=== PATIENT | male | born 1940 | race Caucasian/White ===

== ENCOUNTER 2021-01-06 14:03 | Inpatient (IN) | payer MEDICARE, SELFPAY ==
--- NOTE | ~2021-01-06 | CT_ITS ---
EXAMINATION: CT HEAD WITHOUT CONTRAST CLINICAL INFORMATION: Altered mental status. Psychosis. COMPARISON: None TECHNIQUE: Contiguous axial imaging was performed from the skull base to vertex without intravenous administration of contrast. This CT examination was performed using dose optimization techniques as appropriate, variously including the following: *Automated exposure control *Adjustment of mA and/or kV according to patient size (this includes techniques or standardized protocols for targeted exams where dose is matched to indication/reason for exam; i.e. extremities or head) *Use of iterative reconstruction technique DLP: 737 mGy-cm FINDINGS: There is no evidence of an extra-axial collection. There is no evidence of intra-axial or extra-axial hemorrhage. The ventricles and extra-axial CSF spaces are prominent suggestive of mild generalized atrophy. There is nonspecific periventricular white matter disease. No mass, mass effect or infarct is seen. Review of bone windows is normal. There is a small polyp or cyst in the left axillary sinus. Paranasal sinuses, mastoid air cells and middle ears are otherwise clear. CT/CT head/brain wo con IMPRESSION: No acute findings. Mild nonspecific periventricular white matter disease and generalized atrophy.
--- NOTE | ~2021-01-06 | CT_ITS ---
EXAMINATION: CT HEAD WITHOUT CONTRAST CLINICAL INFORMATION: Fall COMPARISON: None TECHNIQUE: Contiguous axial imaging was performed from the skull base to vertex without intravenous administration of contrast. This CT examination was performed using dose optimization techniques as appropriate, variously including the following: *Automated exposure control *Adjustment of mA and/or kV according to patient size (this includes techniques or standardized protocols for targeted exams where dose is matched to indication/reason for exam; i.e. extremities or head) *Use of iterative reconstruction technique DLP: 659 mGy-cm FINDINGS: There is no evidence of acute intracranial hemorrhage or territorial infarction. No abnormal mass effect or midline shift is seen. Ross to white matter differentiation is well preserved. No extra-axial fluid collections are identified. The ventricles are normal in size. There is mild periventricular white matter hypoattenuation consistent with chronic small vessel ischemic disease. Mild volume loss is noted. The osseous structures and soft tissues are normal. The mastoid air cells and visualized portions of the paranasal sinuses are well aerated. CT/CT head/brain wo con IMPRESSION: No acute intracranial pathology.
--- NOTE | ~2021-01-06 | XR_ITS ---
EXAMINATION: XR LUMBOSACRAL SPINE CLINICAL INFORMATION: Recent fall. COMPARISON: None TECHNIQUE: Three views of the lumbosacral spine. FINDINGS: Mild to moderate thoracolumbar levoscoliosis is seen with apex at L2. Moderate multilevel degenerative disc disease is seen. There is grade 1 anterolisthesis of L4 over L5. Mild to moderate multilevel bilateral facet arthropathy is seen. There is no acute fracture. The soft tissues are unremarkable. XR/XR lumbar spine 2-3V IMPRESSION: Mild to moderate thoracolumbar levoscoliosis and multilevel degenerative changes including L4-5 grade 1 anterolisthesis without overt acute abnormality.
[2021-01-06 18:00] VITALS: RESP 16
[2021-01-06] MEDS: OLANZapine 2.5 MG TABLET PO (20:21)
[2021-01-06] MEDS: LORazepam 0.5 MG TABLET PO (20:21)
[2021-01-06] MEDS: traZODone HCL 50 MG TABLET PO (20:21)
[2021-01-07 06:00] VITALS: BP 135/62; PULSE 83; TEMP 36.8; O2SAT 99
[2021-01-07 06:28] LABS: MANUAL DIFF FLAG NO
[2021-01-07 06:36] LABS: Basophils Absolute Auto 0.1 X10*3/uL (0.0-0.2); Basophils Percent Auto 0.8 % (0-2); Eosinophils Absolute Auto 0.1 X10*3/uL (0.0-0.4); Eosinophils Percent Auto 1.9 % (0-4); Hemoglobin 11.3 g/dl (14.0-18.0); Imm Gran Abs Auto 0.02 X10*3/uL (0.00-0.03); Imm Gran Pct Auto 0.3 % (0.0-0.4); Lymphocytes Percent Auto 27.1 % (20-40); Mean Corpuscular HGB Conc 32.3 g/dl (31.0-36.0); Mean Corpuscular Hemoglobin 29.4 pg (27.0-33.0); Mean Corpuscular Volume 91.1 fL (80-98); Mean Platelet Volume 9.6 fL (9.4-12.4); Monocytes Absolute Auto 1.1 X10*3/uL (0.1-1.2); Monocytes Percent Auto 14.9 % (2-11); Neutrophils Absolute Auto 4.1 X10*3/uL (2.0-8.3); Platelet Count 231 X10*3/uL (160-400); Red Blood Count 3.84 X10*6/uL (4.60-5.80); Red Cell Distribution Width 14.6 % (11.0-16.0); White Blood Count 7.5 X10*3/uL (4.8-10.8)
[2021-01-07 07:21] LABS: Anion Gap 11 (12-20); Blood Urea Nitrogen 22 mg/dL (9-16); Calcium 8.3 mg/dL (8.4-10.2); Carbon Dioxide 30 mmol/L (22-29); Chloride 104 mmol/L (96-108); Cholesterol 194 mg/dL; Estimated Glomerular Filt Rate > 60; Glucose Random 99 mg/dL (60-115); HDL Cholesterol 40 mg/dL; LDL Cholesterol Calculated 140 mg/dl; Potassium 4.1 mmol/L (3.3-5.1); Sodium 141 mmol/L (135-145); Triglycerides 70 mg/dL
[2021-01-07 07:34] LABS: Thyroid Stimulating Hormone 1.18 uIU/mL (0.32-4.0)
[2021-01-07 09:35] LABS: Folate 14.2 ng/mL (> or = 4.0); Vitamin B12 278 pg/mL (200-900)
[2021-01-07 10:01] LABS: Estimated Average Glucose 114 mg/dL; Hemoglobin A1c % 5.6 %
--- NOTE | 2021-01-07 11:18 | P.CNHOSGPS_ITS ---
History of Present Illness Data of Consult Service Date: 01/07/21 Primary Care Provider: Unknown Physician HPI 80 year old male with AFIB, SSS s/p pacemerker, morbid obesity, history of type 2 diabetes and seems to have controlled following weight. Patient is rather demented isn't able to give much history, I obtained history from speaking to the over the phone. She tells me the patient has afib, on coumadin. That the patient was brought to [facility] because of agitation and agression.. Patient had taken a pair of knives and say he was going outside and if followed him, I will kill you --this is uncharactersitic of him. He reportedly also has been having visual hallucination.Had CT at [facility] with no acute finding, routine labs unremarkable and send to Psych units here Review of Systems Review of Systems: Yes Unobtainable due to mental status [facility] Medical History (Updated 01/07/21 @ 11:34 by Sohan Patel MD) Afib Dementia Morbid obesity SSS (sick sinus syndrome) Pertinent family history: Not available for me Surgical History (Updated 01/07/21 @ 11:30 by Sohan Patel MD) S/P cardiac pacemaker procedure Social History Household Members: Spouse Housing: House Do you presently have visiting nurse or other home services: No Unable to assess alcohol history related to: Unable to respond and Refusing to respond Patient Tobacco Use Status: Never used Tobacco Use of substances other than those prescribed or required for medical reasons: Unable to respond Currently Displaying Signs/Symptoms of Drug Intoxication Withdrawal: No Advance Directives: No Advance Directives Information Provided: No Do you have thoughts of harming others: None Do you have a plan to hurt others: No Plan Recently lost weight without trying: No Nutrition Risks: No Nutritional Risk Poor oral hygiene: No (unknown at this time, pt refused to cooperate) Meds Allergies Allergy/AdvReac Type Severity Reaction Status Date / Time No Known Allergies Allergy Verified 01/06/21 14:48 Active Medications: Current Medications Generic Name Dose Route Start Last Admin Trade Name Freq PRN Reason Stop Dose Admin Acetaminophen 650 mg 01/06/21 14:48 Acetaminophen 325 Mg Tablet PO Q6H PRN Headache/Pain Mild Scale (1-3) Al Hydroxide/Mg Hydroxide 30 ml 01/06/21 14:48 Magnesium Hydrox/Alum Hydrox 30 Ml Oral.Susp PO Q6H PRN Heartburn/Nausea Hydroxyzine HCl 25 mg 01/06/21 14:48 Hydroxyzine Hcl 25 Mg Tablet PO BEDTIME PRN Anxiety Lorazepam 0.5 mg 01/06/21 15:27 01/06/21 20:21 Lorazepam 0.5 Mg Tablet PO 0.5 mg Q6H PRN Administration Agitation Magnesium Hydroxide 30 ml 01/06/21 14:48 Milk Of Magnesia 30 Ml Oral.Susp PO DAILY PRN Constipation Olanzapine 2.5 mg 01/06/21 15:25 01/06/21 20:21 Olanzapine 2.5 Mg Tablet PO 2.5 mg Q6H PRN Administration Agitation Trazodone HCl 50 mg 01/06/21 14:48 01/06/21 20:21 Trazodone Hcl 50 Mg Tablet PO 50 mg BEDTIME PRN Administration Insomnia Results Labs CBC and Chem 7: 01/07/21 06:20 01/07/21 06:20 Labs: Laboratory Results - last 24 hr 01/07/21 01/07/21 01/07/21 06:20 06:20 06:20 MCV 91.1 MCH 29.4 MCHC 32.3 RDW 14.6 Plt Count 231 MPV 9.6 Immature Gran % (Auto) 0.3 Neut % (Auto) 55.0 Lymph % (Auto) 27.1 [place] % (Auto) 14.9 H Eos % (Auto) 1.9 Baso % (Auto) 0.8 Lymph # (Auto) 2.0 [place] # (Auto) 1.1 Eos # (Auto) 0.1 Baso # (Auto) 0.1 Abs Immat Gran (auto) 0.02 Absolute Neuts (auto) 4.1 Absolute Nucleated RBC 0.000 Nucleated RBC % (auto) 0.0 Anion Gap 11 L Estim Creat Clear Calc TNP Estimated GFR > 60 Random Glucose 99 Estimat Average Glucose 114 Hemoglobin A1c % 5.6 Calcium 8.3 L Triglycerides 70 Cholesterol 194 LDL Cholesterol, Calc 140 HDL Cholesterol 40 Vitamin B12 Folate TSH 1.18 01/07/21 06:20 MCV MCH MCHC RDW Plt Count MPV Immature Gran % (Auto) Neut % (Auto) Lymph % (Auto) [place] % (Auto) Eos % (Auto) Baso % (Auto) Lymph # (Auto) [place] # (Auto) Eos # (Auto) Baso # (Auto) Abs Immat Gran (auto) Absolute Neuts (auto) Absolute Nucleated RBC Nucleated RBC % (auto) Anion Gap Estim Creat Clear Calc Estimated GFR Random Glucose Estimat Average Glucose Hemoglobin A1c % Calcium Triglycerides Cholesterol LDL Cholesterol, Calc HDL Cholesterol Vitamin B12 278 Folate 14.2 TSH Assessment and Plan (1) Afib: Status: Acute (2) Dementia: Status: Acute 80/male morbidly [place] with moderate to advance dementia, AFIB presently admitted to Psych with dementia with behavioral issues and Psychotic feature. Medical work including metabolic panel unremarkable, [facility] Plan/ Continue ongoing Psychiatric care. As for h/o AFIB the tells me he takes coumadin and is not presently on, I would suggest that staff obtain home meds record so these can be reviewed and prescribed, I would also check daily INR. Discuss with Dr. Tamez. Physical Exam Vital Signs: Last Vital Signs Temp 98.3 F 01/07/21 06:00 Pulse 83 01/07/21 06:00 Resp 16 01/06/21 18:00 BP 135/62 01/07/21 06:00 Pulse Ox 99 01/07/21 06:00 Constitutional Awake and Alert, No apparent distress, tells me he is [facility], the year is 1940, Pleasantly confused Neck Supple, No lymphadenopathy Cardiovascular RRR, No M/R/G, S1 S2, No S3 S4, No pedal edema Respiratory Lungs clear, No respiratory distress Gastrointestinal Non tender, Non-distended Skin No rash Neurological Oritented to self only Psychological Appropriate affect, presently confused CN2 to 12 intact Neuro Cranial nerves: Yes CN's II-XII intact bilaterally
[2021-01-07 12:20] LABS: Prothrombin Time 22.9 SEC (9.9-13.0)
--- NOTE | 2021-01-07 12:21 | HO.PSYADMNOT ---
HPI Chief Complaint: Unspecified Depressive Disorder Sources of Information: patient interviewed, chart reviewed and crisis/core team assessment reviewed HPI Narrative: The patient is a 80-year-old male, , father of 4 adult children, retired, with good social support, living with his , referred from [facility]. As per emergency room reports, the patient was brought by the family sees he was recently diagnosed with dementia and she has been more agitated and delusional. About 6 weeks ago, the family has noticed a change in his behavior, with increase of irritability and irrational thoughts. The family reported that the patient had visual hallucinations, ?people killing each other, my friends being attacked . She has gone out to the street with a knife. Also, the crisis report, the patient had auditory hallucinations. Under emergency room of [facility], he was agitated and needed to be medicated with olanzapine and lorazepam. On intake, the patient was pleasant but confused. He has had a long latency of response. As per nurse's report, the patient was agitated at night and needed to be medicated with olanzapine and lorazepam several times we had minimal improvement. The patient was a very poor historian, he was unable to provide more details. [facility], she had a medical workup out with CBC with differential, CT scan without any abnormalities. Blood work today, show a normal folate level, TSH, vitamin B12 level and normal lipid profile. Past Psychiatric History: Denies Medical Evaluation Reviewed: Hospitalist Lanie Pending [facility] Medical History Afib Dementia Morbid obesity SSS (sick sinus syndrome) Surgical History S/P cardiac pacemaker procedure Family History: Denies Social History: The patient is a poor historian but he is and he has good social support Substance History: Denies Trauma History: Denies Diagnostics Vital Signs (24Hr): Vital Signs - 24 hr 01/06/21 18:00 01/07/21 06:00 Temperature 98.3 F Pulse Rate 83 Respiratory Rate 16 Blood Pressure 135/62 Pulse Oximetry 99 Labs Results: 01/07/21 06:20 01/07/21 06:20 Labs: Laboratory Results - last 48 hr 01/07/21 01/07/21 01/07/21 06:20 06:20 06:20 WBC 7.5 RBC 3.84 L Hgb 11.3 L Hct 35.0 L MCV 91.1 MCH 29.4 MCHC 32.3 RDW 14.6 Plt Count 231 MPV 9.6 Immature Gran % (Auto) 0.3 Neut % (Auto) 55.0 Lymph % (Auto) 27.1 [place] % (Auto) 14.9 H Eos % (Auto) 1.9 Baso % (Auto) 0.8 Lymph # (Auto) 2.0 [place] # (Auto) 1.1 Eos # (Auto) 0.1 Baso # (Auto) 0.1 Abs Immat Gran (auto) 0.02 Absolute Neuts (auto) 4.1 Absolute Nucleated RBC 0.000 Nucleated RBC % (auto) 0.0 Sodium 141 Potassium 4.1 Chloride 104 Carbon Dioxide 30 H Anion Gap 11 L BUN 22 H Creatinine 1.00 Estim Creat Clear Calc TNP Estimated GFR > 60 Random Glucose 99 Estimat Average Glucose 114 Hemoglobin A1c % 5.6 Calcium 8.3 L Triglycerides 70 Cholesterol 194 LDL Cholesterol, Calc 140 HDL Cholesterol 40 Vitamin B12 Folate TSH 1.18 01/07/21 06:20 WBC RBC Hgb Hct MCV MCH MCHC RDW Plt Count MPV Immature Gran % (Auto) Neut % (Auto) Lymph % (Auto) [place] % (Auto) Eos % (Auto) Baso % (Auto) Lymph # (Auto) [place] # (Auto) Eos # (Auto) Baso # (Auto) Abs Immat Gran (auto) Absolute Neuts (auto) Absolute Nucleated RBC Nucleated RBC % (auto) Sodium Potassium Chloride Carbon Dioxide Anion Gap BUN Creatinine Estim Creat Clear Calc Estimated GFR Random Glucose Estimat Average Glucose Hemoglobin A1c % Calcium Triglycerides Cholesterol LDL Cholesterol, Calc HDL Cholesterol Vitamin B12 278 Folate 14.2 TSH Meds/Allergies Meds Home Medications Acetaminophen (Acetaminophen 325 Mg Tablet) 650 mg PO Q6H PRN PRN Reason: Headache/Pain Mild Scale (1-3) Al Hydroxide/Mg Hydroxide (Magnesium Hydrox/Alum Hydrox 30 Ml Oral.Susp) 30 ml PO Q6H PRN PRN Reason: Heartburn/Nausea Hydroxyzine HCl (Hydroxyzine Hcl 25 Mg Tablet) 25 mg PO BEDTIME PRN PRN Reason: Anxiety Lorazepam (Lorazepam 0.5 Mg Tablet) 0.5 mg PO Q6H PRN PRN Reason: Agitation Last Admin: 01/06/21 20:21 Dose: 0.5 mg Documented by: Magnesium Hydroxide (Milk Of Magnesia 30 Ml Oral.Susp) 30 ml PO DAILY PRN PRN Reason: Constipation Olanzapine (Olanzapine 2.5 Mg Tablet) 2.5 mg PO Q6H PRN PRN Reason: Agitation Last Admin: 01/06/21 20:21 Dose: 2.5 mg Documented by: Trazodone HCl (Trazodone Hcl 50 Mg Tablet) 50 mg PO BEDTIME PRN PRN Reason: Insomnia Last Admin: 01/06/21 20:21 Dose: 50 mg Documented by: Allergies Allergies Allergy/AdvReac Type Severity Reaction Status Date / Time No Known Allergies Allergy Verified 01/06/21 14:48 Mental Status Exam Mental Status Exam Patient Appearance: Well Grooomed (On hospital gowns) Patient Orientation: Person Level of Consciousness: Awake and Disoriented Patient Behavior: Appropriate and Cooperative Mood Description: Depressed Affect Description: Constricted Patient Cognition Impaired: Yes Ability to Follow Directions: Fair Speech Pattern: Clear, Monotone and Soft-Spoken Memory Description: Immediate Impaired Hallucinations: Visual Delusions: Paranoid Ideation Thought Process: Evasive Thought Content: positive for Poverty of Content and positive for Loose Associations Judgement: Poor Assessment & Plan Assessment & Plan (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 He was admitted due to the presence of psychotic symptoms without a clear stressor. Historically, the patient has never been psychotic and he did not have any prior psychiatric history. Plan 1. Start olanzapine 2.5 mg p.o. q.h.s. to target psychotic symptoms. 2. Continue p.r.n. medication with olanzapine and lorazepam. 3. Gather collateral information from the family. Reason for continued inpatient stay Substantial Risk for: harm to others, inability to function, rapid decompensation and med/psych decompensation
[2021-01-07 13:59] LABS: Glucose Urine UA NEG (NEG); Leukocyte Esterase Urine 1+ (NEG); Nitrite Urine NEG (NEG); Urine Blood NEG (NEG); Urine Ketones NEG (NEG); Urine Protein NEG (NEG-TRACE)
[2021-01-07 14:01] LABS: Appearance Urine CLEAR; Color Urine YELLOW
[2021-01-07 14:07] LABS: RBC Urine 0 /HPF (0); Squamous Epithelial Cell Urine TRACE /LPF; WBC Urine 0-2 /HPF (0-4)
[2021-01-07] MEDS: OLANZapine 2.5 MG TABLET PO ×2 (15:14→20:46)
[2021-01-07] MEDS: LORazepam 0.5 MG TABLET PO ×2 (15:14→21:55)
[2021-01-07 18:00] VITALS: BP 115/84; PULSE 107; RESP 18; TEMP 36.4; O2SAT 99
[2021-01-07] MEDS: Mirtazapine 7.5 MG TABLET PO (20:46)
[2021-01-07] MEDS: QUEtiapine Fumarate 25 MG TABLET PO (20:46)
[2021-01-07] MEDS: Memantine HCl 10 MG TABLET PO (20:46)
[2021-01-07] MEDS: Sertraline HCL 25 MG TABLET PO (20:47)
[2021-01-07] MEDS: Magnesium Hydrox/Alum Hydrox 30 ML ORAL.SUSP PO (22:02)
[2021-01-07] MEDS: Warfarin Sodium 7.5 MG TABLET PO (22:12)
--- NOTE | 2021-01-08 00:28 | P.EN_ITS ---
Event Note Date of Service: 01/08/21 Event Note: Called to the room, patient was found on the ground. There was co ncern for harm. I went and saw the patient and spoke to the nurse. Nurse endorsed that the patient is a 1-1, but that the patient became agitated, and went into his room and closed the door, and was later found sitting on the ground. I went to assess the patient, he is sitting on the bed, he denies any severe pain, he is moving all 4 extremities very easily, I do not see any bruising on his torso or his head, I asked him to stand up, and when he did, he was somewhat unsteady on his feet, therefore I asked him to sit back down. Nurse endorsed to me that the patient did receive Seroquel, Ativan, and olanzapine, which could explain his drowsiness and balance instability. I do not see any focal neurologic deficits, the patient is not complaining of any severe pains anywhere in his body. Therefore, I do not think any further workup is necessary at this point. Likely his gait/balance instability is secondary to all of the medications he received tonight. Would recommend that he rest t onight, with re-evaluation by nursing staff in the morning.
--- NOTE | 2021-01-08 01:23 | PC.NURSE ---
PT was on 1:1 sitter observation because he was confused and going into other patient's rooms. PT was not considered a fall risk at this point. PT was agitated in his room, being verbally aggressive with staff. PT then slammed the door on the sitter and a moment later started yelling in his room. Sitter entered the room to find the PT sitting on the floor next to the bed. At this time this nurse was alerted of the incident and came into the room to assess the PT. PT was found to have no bruising or swelling on any part of his head, neck, arms, legs, or torso. PT denied any pain with or without palpation of the body. PT was able to be assisted back to his feet with the assistance of this nurse. PT's gait seemed to be more unsteady now than it had been in the past, possibly due to new medications given tonight. Hospitalist was informed of the incident. Hospitalist came to assess the PT. Hospitalist found the PT with no complaints of pain or guarding, voluntary movement of all extremities, and no bruising and swelling. PT was unsteady on his feet.
[2021-01-08 07:06] LABS: Prothrombin Time 22.6 SEC (9.9-13.0)
[2021-01-08 09:16] VITALS: BP 96/57; PULSE 121; RESP 18; TEMP 37.1; O2SAT 97
[2021-01-08 09:22] VITALS: BP 96/57; PULSE 121
[2021-01-08] MEDS: QUEtiapine Fumarate 25 MG TABLET PO (09:22)
[2021-01-08] MEDS: Memantine HCl 10 MG TABLET PO ×2 (09:22→19:43)
[2021-01-08] MEDS: Sertraline HCL 25 MG TABLET PO (09:22)
[2021-01-08] MEDS: Metoprolol Succinate ER 25 MG TAB.ER.24H PO (09:22)
[2021-01-08] MEDS: Furosemide 20 MG TABLET PO (09:22)
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
[2021-01-08] MEDS: OLANZapine 5 MG TABLET PO (14:20)
[2021-01-08] MEDS: LORazepam 1 MG TABLET 2 MG PO (14:20)
[2021-01-08 18:00] VITALS: BP 124/59; PULSE 83; RESP 18; TEMP 36.7; O2SAT 99
[2021-01-08] MEDS: Warfarin Sodium 7.5 MG TABLET PO (18:32)
[2021-01-08] MEDS: LORazepam 0.5 MG TABLET PO (18:33)
[2021-01-08] MEDS: Mirtazapine 7.5 MG TABLET PO (19:43)
[2021-01-08] MEDS: traZODone HCL 50 MG TABLET PO (19:43)
[2021-01-08] MEDS: OLANZapine 2.5 MG TABLET PO (19:43)
[2021-01-09 07:02] LABS: Prothrombin Time 22.8 SEC (9.9-13.0)
--- NOTE | 2021-01-09 08:12 | HO.PSYCHPN ---
Subjective Subjective Date of Service: 01/09/21 Reason For Visit: Unspecified Depressive Disorder Subjective Notes: Conditional Voluntary Interim History: The patient has been very agitated yesterday, security has to be called twice. He was nearly treated with IM since he was refusing to take p.o. but eventually he did get Zyprexa 5 mg and Ativan 2 mg p.o. we had some improvement. Nursing staff reported that he was unstable his gait with Zyprexa 5 mg. Yesterday, we discussed the case with his and they agree to continue medication management. Today, he was awake and confused and remains unpredictable. We discussed the case with the team and we agreed to the changes below. Review of Systems Acute medical concerns: No Medical Review of Systems: unchanged Mental Status Exam Mental Status Exam Patient Appearance: Well Grooomed Patient Orientation: Person Level of Consciousness: Awake and Disoriented Patient Behavior: Suspicious and Timid Mood Description: Suspicious and Hostile Affect Description: Labile Patient Cognition Impaired: Yes Ability to Follow Directions: Fair Speech Pattern: Impoverished, Spontaneous Speech, Rapid and Excessive Hallucinations: Auditory and Visual Delusions: Paranoid Ideation and Ideas of Reference Thought Process: Incoherent and Illogical Thought Content: positive for Obsessional Thoughts, positive for Perseveration, positive for Loose Associations, positive for Thought Blocking and positive for Tangential Judgement: Poor Diagnostics Vital Signs (24Hr): Vital Signs - 24 hr 01/08/21 09:16 01/08/21 09:22 01/08/21 18:00 Temperature 98.8 F 98.1 F Pulse Rate 121 H 121 H 83 Respiratory Rate 18 18 Blood Pressure 96/57 L 96/57 L 124/59 L Pulse Oximetry 97 99 Labs Results: 01/07/21 06:20 01/07/21 06:20 Labs: Laboratory Results - last 48 hr 01/07/21 01/07/21 01/07/21 06:20 06:20 12:04 PT 22.9 H INR 2.0 H Estimat Average Glucose 114 Hemoglobin A1c % 5.6 Vitamin B12 278 Folate 14.2 Urine Color Urine Appearance Urine pH Ur Specific [place] Urine Protein Urine Glucose (UA) Urine Ketones Urine Blood Urine Nitrite Ur Leukocyte Esterase Urine RBC Urine WBC Ur Squamous Epith Cells Urine Bacteria 01/07/21 01/08/21 01/09/21 Unknown 06:39 06:46 PT 22.6 H 22.8 H INR 2.0 H 2.0 H Estimat Average Glucose Hemoglobin A1c % Vitamin B12 Folate Urine Color YELLOW Urine Appearance CLEAR Urine pH 6.0 Ur Specific [place] 1.020 Urine Protein NEG Urine Glucose (UA) NEG Urine Ketones NEG Urine Blood NEG Urine Nitrite NEG Ur Leukocyte Esterase 1+ H Urine RBC 0 Urine WBC 0-2 Ur Squamous Epith Cells TRACE Urine Bacteria NONE Medications Medications Current Medications Generic Name Dose Route Start Last Admin Trade Name Freq PRN Reason Stop Dose Admin Acetaminophen 650 mg 01/06/21 14:48 Acetaminophen 325 Mg Tablet PO Q6H PRN Headache/Pain Mild Scale (1-3) Al Hydroxide/Mg Hydroxide 30 ml 01/06/21 14:48 01/07/21 22:02 Magnesium Hydrox/Alum Hydrox 30 Ml Oral.Susp PO 30 ml Q6H PRN Administration Heartburn/Nausea Furosemide 20 mg 01/08/21 09:00 01/08/21 09:22 Furosemide 20 Mg Tablet PO 20 mg Q48H MICAELA Administration Protocol Hydroxyzine HCl 25 mg 01/06/21 14:48 Hydroxyzine Hcl 25 Mg Tablet PO BEDTIME PRN Anxiety Magnesium Hydroxide 30 ml 01/06/21 14:48 Milk Of Magnesia 30 Ml Oral.Susp PO DAILY PRN Constipation Memantine 10 mg 01/07/21 21:00 01/08/21 19:43 Memantine Hcl 10 Mg Tablet PO 10 mg BID MICAELA Administration Metoprolol Succinate 25 mg 01/08/21 09:00 01/08/21 09:22 Metoprolol Succinate Er 25 Mg Tab.Er.24h PO 25 mg DAILY MICAELA Administration Protocol Mirtazapine 7.5 mg 01/07/21 21:00 01/08/21 19:43 Mirtazapine 7.5 Mg Tablet PO 7.5 mg BEDTIME MICAELA Administration Olanzapine 5 mg 01/09/21 07:26 Olanzapine 5 Mg Tablet PO Q4H PRN Agitation Olanzapine 5 mg 01/09/21 21:00 Olanzapine 5 Mg Tablet PO BEDTIME MICAELA Olanzapine 2.5 mg 01/09/21 15:00 Olanzapine 2.5 Mg Tablet PO DAILY MICAELA Propafenone HCl 150 mg 01/07/21 21:00 01/08/21 19:43 Propafenone Hcl 150 Mg Tablet PO 150 mg BID MICAELA Administration Sertraline HCl 25 mg 01/07/21 20:15 01/08/21 09:22 Sertraline Hcl 25 Mg Tablet PO 25 mg DAILY MICAELA Administration Trazodone HCl 50 mg 01/06/21 14:48 01/08/21 19:43 Trazodone Hcl 50 Mg Tablet PO 50 mg BEDTIME PRN Administration Insomnia Warfarin Sodium 7.5 mg 01/07/21 21:00 01/08/21 18:32 Warfarin Sodium 7.5 Mg Tablet PO 7.5 mg DAILY@1800 MICAELA Administration Allergies Allergies Allergy/AdvReac Type Severity Reaction Status Date / Time No Known Allergies Allergy Verified 01/06/21 14:48 Assessment & Plan Assessment & Plan (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 He was admitted due to the presence of psychotic symptoms without a clear stressor. Historically, the patient has never been psychotic and he did not have any prior psychiatric history. Plan 1. Change olanzapine 2.5 mg p.o. q.h.s. to target psychotic symptoms 14:00 and a 2nd dose at hs of Zyprexa 5 mg p.o. 2. Continue p.r.n. medication with olanzapine and lorazepam. Increased olanzapine p.r.n. up to 5 mg 3. Gather collateral information from the family. The family reported that aggression is started just on October 2020. 4. Discontinue Seroquel 25 mg p.o. b.i.d. and continue with the other medications as per medication reconciliation Greater than 50% of the session was spent on counseling and/or coordination of care Informed Consent: does not understand Reason for contiued inpatient stay Substantial Risk for: harm to self, harm to others, inability to function, rapid decompensation and med/psych decompensation
[2021-01-09 08:37] VITALS: BP 124/66; PULSE 63; RESP 18; TEMP 36.7; O2SAT 95
[2021-01-09 11:14] VITALS: BP 110/61; PULSE 63; RESP 18; TEMP 37; O2SAT 99
[2021-01-09 11:16] VITALS: BP 110/61; PULSE 63
[2021-01-09] MEDS: Metoprolol Succinate ER 25 MG TAB.ER.24H PO (11:16)
[2021-01-09] MEDS: Sertraline HCL 25 MG TABLET PO (11:16)
[2021-01-09] MEDS: OLANZapine 5 MG TABLET PO ×2 (11:17→19:31)
[2021-01-09] MEDS: Memantine HCl 10 MG TABLET PO ×2 (11:17→19:30)
[2021-01-09] MEDS: Mirtazapine 7.5 MG TABLET PO (19:30)
[2021-01-09] MEDS: Warfarin Sodium 7.5 MG TABLET PO (19:31)
[2021-01-09 19:45] VITALS: BP 119/66; PULSE 66; RESP 18; TEMP 36.6; O2SAT 100
[2021-01-10] MEDS: OLANZapine 5 MG TABLET PO ×2 (00:48→22:09)
[2021-01-10] MEDS: Acetaminophen 325 MG TABLET 650 MG PO (00:48)
[2021-01-10] MEDS: hydrOXYzine HCL 25 MG TABLET PO ×2 (00:49→04:12)
[2021-01-10] MEDS: traZODone HCL 50 MG TABLET PO ×2 (00:49→04:12)
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
[2021-01-10 07:01] LABS: INTERNATIONAL NORM RATIO 2.7 (0.9-1.1); Prothrombin Time 30.9 SEC (9.9-13.0)
[2021-01-10 18:00] VITALS: BP 115/59; PULSE 90; RESP 18; TEMP 37; O2SAT 97
[2021-01-10] MEDS: OLANZapine 10 MG VIAL IM (19:21)
[2021-01-10 19:30] VITALS: BP 118/64; PULSE 102; RESP 22; TEMP 37; O2SAT 97
[2021-01-10] MEDS: Memantine HCl 10 MG TABLET PO (19:38)
[2021-01-10] MEDS: Warfarin Sodium 7.5 MG TABLET PO (19:38)
[2021-01-10] MEDS: Mirtazapine 7.5 MG TABLET PO (19:38)
[2021-01-10 19:45] VITALS: BP 134/62; PULSE 89; RESP 21; TEMP 36.8
[2021-01-10 20:00] VITALS: BP 117/57; PULSE 95; RESP 20; TEMP 36.7
[2021-01-10 20:15] VITALS: BP 118/56; PULSE 91; RESP 20; TEMP 36.7
[2021-01-11 06:00] VITALS: BP 129/79; PULSE 101; TEMP 37; O2SAT 98
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
[2021-01-11 07:28] LABS: INTERNATIONAL NORM RATIO 3.9 (0.9-1.1); Prothrombin Time 45.5 SEC (9.9-13.0)
[2021-01-11] MEDS: Metoprolol Succinate ER 25 MG TAB.ER.24H PO (09:00)
[2021-01-11] MEDS: Sertraline HCL 25 MG TABLET PO (09:00)
[2021-01-11] MEDS: Memantine HCl 10 MG TABLET PO ×2 (09:00→19:49)
[2021-01-11] MEDS: OLANZapine 5 MG TABLET PO ×2 (13:44→20:23)
[2021-01-11] MEDS: OLANZapine 10 MG TABLET PO (17:00)
[2021-01-11] MEDS: Mirtazapine 7.5 MG TABLET PO (19:49)
[2021-01-11] MEDS: traZODone HCL 50 MG TABLET PO (20:23)
[2021-01-12 06:00] VITALS: BP 108/52; PULSE 83; RESP 16; TEMP 36.4; O2SAT 98
[2021-01-12 07:31] LABS: INTERNATIONAL NORM RATIO 3.7 (0.9-1.1); Prothrombin Time 43.7 SEC (9.9-13.0)
[2021-01-12] MEDS: Furosemide 20 MG TABLET PO (10:16)
[2021-01-12] MEDS: Sertraline HCL 25 MG TABLET PO (10:16)
[2021-01-12] MEDS: Memantine HCl 10 MG TABLET PO ×2 (10:18→21:42)
[2021-01-12] MEDS: OLANZapine 5 MG TABLET PO ×2 (10:23→21:43)
--- NOTE | 2021-01-12 10:31 | ECG_ITS ---
Test Reason : QTC PROLONG Blood Pressure : / mmHG Vent. Rate : 079 BPM Atrial Rate : 079 BPM P-R Int : 216 ms QRS Dur : 118 ms QT Int : 392 ms P-R-T Axes : 033 -52 017 degrees QTc Int : 449 ms Sinus rhythm with 1st degree A-V block with frequent Premature ventricular complexes Left anterior fascicular block Abnormal ECG No previous ECGs available Referred By: Osiel Tamez Electronically Signed By:ANTHONY SUAREZ
--- NOTE | 2021-01-12 10:55 | P.PNPSI_ITS ---
Subjective Subjective Date of Service: 01/12/21 Reason For Visit: Unspecified Depressive Disorder Subjective Notes: Conditional Voluntary Interim History: Over the weekend the patient had been extremely agitated, his now one-to-one and apparently he has tried several times to elope. He also has barricaded himself in his room. He is very paranoid and disorganized. Nursing staff reported that he is not over sedated with Zyprexa 5 mg. On interview, the patient remains confused, disorganized and delusional, talking to himself Review of Systems Acute medical concerns: No Medical Review of Systems: unchanged Mental Status Exam Mental Status Exam Patient Appearance: Unkempt Patient Orientation: Person Level of Consciousness: Awake Patient Behavior: Suspicious and Avoidant Mood Description: Hostile and Labile Affect Description: Constricted Patient Cognition Impaired: Yes Ability to Follow Directions: Fair Speech Pattern: Rambling and Mumbled Hallucinations: Auditory and Visual Delusions: Paranoid Ideation Thought Process: Illogical and Distracted Thought Content: positive for Thought Blocking, positive for Incoherent and positive for Tangential Judgement: Poor Diagnostics Vital Signs (24Hr): Vital Signs - 24 hr 01/12/21 06:00 01/12/21 10:16 Temperature 97.6 F Pulse Rate 83 83 Respiratory Rate 16 Blood Pressure 108/52 L 108/52 L Pulse Oximetry 98 Labs Results: 01/07/21 06:20 01/07/21 06:20 Labs: Laboratory Results - last 48 hr 01/11/21 01/12/21 07:06 07:03 PT 45.5 H D 43.7 H INR 3.9 H 3.7 H Medications Medications Current Medications Generic Name Dose Route Start Last Admin Trade Name Elianq PRN Reason Stop Dose Admin Acetaminophen 650 mg 01/06/21 14:48 01/10/21 00:48 Acetaminophen 325 Mg Tablet PO 650 mg Q6H PRN Administration Headache/Pain Mild Scale (1-3) Al Hydroxide/Mg Hydroxide 30 ml 01/06/21 14:48 01/07/21 22:02 Magnesium Hydrox/Alum Hydrox 30 Ml Oral.Susp PO 30 ml Q6H PRN Administration Heartburn/Nausea Furosemide 20 mg 01/08/21 09:00 01/12/21 10:16 Furosemide 20 Mg Tablet PO 20 mg Q48H MICAELA Administration Protocol Hydroxyzine HCl 25 mg 01/06/21 14:48 01/10/21 04:12 Hydroxyzine Hcl 25 Mg Tablet PO 25 mg BEDTIME PRN Administration Anxiety Magnesium Hydroxide 30 ml 01/06/21 14:48 Milk Of Magnesia 30 Ml Oral.Susp PO DAILY PRN Constipation Memantine 10 mg 01/07/21 21:00 01/12/21 10:18 Memantine Hcl 10 Mg Tablet PO 10 mg BID MICAELA Administration Metoprolol Succinate 25 mg 01/08/21 09:00 01/12/21 10:16 Metoprolol Succinate Er 25 Mg Tab.Er.24h PO 25 mg DAILY MICAELA Administration Protocol Mirtazapine 7.5 mg 01/07/21 21:00 01/11/21 19:49 Mirtazapine 7.5 Mg Tablet PO 7.5 mg BEDTIME MICAELA Administration Olanzapine 5 mg 01/09/21 07:26 01/12/21 10:23 Olanzapine 5 Mg Tablet PO 5 mg Q4H PRN Administration Agitation Olanzapine 5 mg 01/11/21 14:00 01/11/21 13:44 Olanzapine 5 Mg Tablet PO 5 mg DAILY@1400 MICAELA Administration Olanzapine 10 mg 01/11/21 17:00 01/11/21 17:00 Olanzapine 10 Mg Tablet PO 10 mg DAILY@1700 MICAELA Administration Propafenone HCl 150 mg 01/07/21 21:00 01/12/21 10:16 Propafenone Hcl 150 Mg Tablet PO 150 mg BID MICAELA Administration Sertraline HCl 25 mg 01/07/21 20:15 01/12/21 10:16 Sertraline Hcl 25 Mg Tablet PO 25 mg DAILY MICAELA Administration Trazodone HCl 50 mg 01/06/21 14:48 01/11/21 20:23 Trazodone Hcl 50 Mg Tablet PO 50 mg BEDTIME PRN Administration Insomnia Warfarin Sodium 7.5 mg 01/12/21 18:00 Warfarin Sodium 7.5 Mg Tablet PO DAILY@1800 MICAELA Allergies Allergies Allergy/AdvReac Type Severity Reaction Status Date / Time No Known Allergies Allergy Verified 01/06/21 14:48 Assessment & Plan Assessment & Plan (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 He was admitted due to the presence of psychotic symptoms without a clear stre ssor. Historically, the patient has never been psychotic and he did not have any prior psychiatric history. Plan 1. Increase olanzapine 5 mg p.o. at 1400. to target psychotic symptoms and a 2nd dose at hs of Zyprexa 15 mg p.o. 2. Continue p.r.n. medication with olanzapine. Increased olanzapine p.r.n. up to 5 mg. Discontinue benzodiazepines 3. Gather collateral information from the family. The family reported that aggression is started just on October 2020. 4. Discontinue Seroquel 25 mg p.o. b.i.d. and continue with the other medications as per medication reconciliation Greater than 50% of the session was spent on counseling and/or coordination of care Reason for contiued inpatient stay Substantial Risk for: harm to others, inability to function, rapid decompensation and med/psych decompensation
[2021-01-12] MEDS: hydrOXYzine HCL 25 MG TABLET PO (11:47)
[2021-01-12] MEDS: OLANZapine 7.5 MG TABLET 15 MG PO (16:53)
[2021-01-12 18:35] VITALS: BP 121/64; PULSE 79; RESP 17; TEMP 36.8; O2SAT 98
[2021-01-12] MEDS: Mirtazapine 7.5 MG TABLET PO (21:43)
--- NOTE | 2021-01-12 22:04 | PC.NURSE ---
Patient was agitated at start of shift, exit seeking at all exit doors, increase agitation with raised voice when redirected; maintained on 1:1 with safe distance not to escalate the level of agitation. Responding to internal stimuli, having full conversation with himself; maintained on 1:1 with safe distance not to increase agitation. Occasional yelling at staff you are going to , but no aggression towards staff and maintain boundaries. Patient was calm and quiet for a short period of time, accepted his HS meds and a PRN Zyprexa without any issues or paranoia. Patient then allowed RN to complete wound care and change dressing to skin tear to left forearm, cleansed with normal saline, pat dry, small amount of antibacterial ointment, covered with clean 2x2 gauze and tegaderm. Within 20 minutes of being calm and taking the meds, patient started yelling and became aggressive towards fellow patient who was sitting in dayroom, could not be redirected to step away from fellow patient, security was called to help deescalate patient and in meantime staff was able to distract patient long enough for fellow patient to be able to get up and move to safe part of unit. Security came and spent some time talking with patient; remained labile responding to internal stimuli no linear thought process. Dr. Calvillo made aware. Patient remaining in dayarea with 1:1.
[2021-01-13] MEDS: hydrOXYzine HCL 25 MG TABLET PO (00:22)
[2021-01-13] MEDS: traZODone HCL 50 MG TABLET PO ×2 (00:23→20:00)
[2021-01-13 01:45] VITALS: BP 112/60; PULSE 89; RESP 20; TEMP 36.8; O2SAT 94
[2021-01-13 02:20] VITALS: BP 138/67; PULSE 88; RESP 18; O2SAT 97
[2021-01-13 03:02] VITALS: BP 126/60; PULSE 83; RESP 18; O2SAT 96
[2021-01-13] MEDS: LORazepam 1 MG TABLET PO (05:13)
[2021-01-13] MEDS: Acetaminophen 325 MG TABLET 650 MG PO ×2 (05:13→11:21)
[2021-01-13 05:25] VITALS: BP 112/85; PULSE 85; RESP 18; TEMP 36.6; O2SAT 96
[2021-01-13 07:04] LABS: INTERNATIONAL NORM RATIO 2.9 (0.9-1.1); Prothrombin Time 33.4 SEC (9.9-13.0)
[2021-01-13] MEDS: Memantine HCl 10 MG TABLET PO ×2 (08:31→20:00)
[2021-01-13] MEDS: OLANZapine 5 MG TABLET PO (08:31)
[2021-01-13] MEDS: Sertraline HCL 25 MG TABLET PO (08:32)
[2021-01-13 08:35] VITALS: BP 95/46; PULSE 82; RESP 18; TEMP 36.7; O2SAT 97
[2021-01-13 08:45] VITALS: BP 95/46; PULSE 82
--- NOTE | 2021-01-13 09:01 | PC.NURSE ---
PT was on 1:1 sitter observation, aggressive and restless throughout the evening +AVH and responding to excessive internal stimuli; increased agitation and aggression if sitter was too close. PT was agitated in his room, verbally aggressive toward staff, patient closed BR door with sitter in hallway and then heard thump in room and patient yell ow at approx 1:40am, Sitter was at doorway and the administrative underwriter immediately followed to assess patient who was laying on floor next to foot of bed and slighty propped next to chair. Patient denied pain or injury able to move all extremities freely at time of assessment; RN assessed patient and obtained full set of vitals before assisting patient up to his feet and to sit on side of bed. Nursing Tire Trucker, and Hospitalist, and oncall Psychiatric Provider notified of incident. Neuro level at baseline: alert, oriented only to self, resteless, clear speech, nonlinear thought pattern, continued with +AVH, responding to internal stimuli, labile agitated mood. CT of head was ordered and one time dose of Ativan prior to procedure; which he went to at approx 530am and results were clear. Dark purple bruise was noted approx 2 hours after incident; by 5am patient was reporting feeling sore; no swelling, no guarding. PRN APAP was administered. Gait became more unsteady as patient appeared more stiff as night went on. Patient remained restless and did not sleep. Continue to monitor patient throughout shift and vitals checked regularly remaining stable.
[2021-01-13] MEDS: HaloperidoL 5 MG TABLET PO ×2 (11:05→20:00)
--- NOTE | 2021-01-13 13:41 | PC.NURSE ---
Patient has 1.5 inch x 0.5 inch (Approximately) skin tear as well as a 0.25 inch x 0.25 inch (Approximately) round skin tear to left forearm, Changed dressing. Will need to be assessed for further treatment.
--- NOTE | 2021-01-13 13:47 | P.PNPSI_ITS ---
Subjective Subjective Date of Service: 01/13/21 Reason For Visit: Unspecified Depressive Disorder Interim History: Nursing staff reported that last night the patient was very agitated and he fell at 01:40. He has received all the PRNs of Zyprexa and so far he did not have and response to it. Today in the morning, the patient was again agitated and since Zyprexa has not helped him we decided to change to haloperidol. Haldol 5 mg p.o. q.a.m. 1 time has helped him. Mental Status Exam Mental Status Exam Patient Appearance: Disheveled and Unkempt Patient Orientation: Person Level of Consciousness: Lethargic Patient Behavior: Sedated and Combative Mood Description: Blunted Affect Description: Labile Patient Cognition Impaired: Yes Ability to Follow Directions: Poor Speech Pattern: Impoverished Hallucinations: Auditory and Visual Delusions: Paranoid Ideation Thought Process: Incoherent, Illogical and Confusion Thought Content: positive for Loose Associations Judgement: Poor Diagnostics Vital Signs (24Hr): Vital Signs - 24 hr 01/12/21 18:35 01/13/21 01:45 01/13/21 02:20 Temperature 98.3 F 98.3 F Pulse Rate 79 89 88 Respiratory Rate 17 20 18 Blood Pressure 121/64 112/60 138/67 Pulse Oximetry 98 94 97 01/13/21 03:02 01/13/21 05:25 01/13/21 08:35 Temperature 98 F 98.1 F Pulse Rate 83 85 82 Respiratory Rate 18 18 18 Blood Pressure 126/60 112/85 95/46 L Pulse Oximetry 96 96 97 01/13/21 08:45 Temperature Pulse Rate 82 Respiratory Rate Blood Pressure 95/46 L Pulse Oximetry Labs Results: 01/07/21 06:20 01/07/21 06:20 Labs: Laboratory Results - last 48 hr 01/12/21 01/13/21 07:03 06:45 PT 43.7 H 33.4 H D INR 3.7 H 2.9 H Imaging Radiology Impressions: ITS Impressions Head CT 01/13/21 05:50 IMPRESSION: No acute intracranial pathology. Medications Medications Current Medications Generic Name Dose Route Start Last Admin Trade Name Freq PRN Reason Stop Dose Admin Acetaminophen 650 mg 01/06/21 14:48 01/13/21 11:21 Acetaminophen 325 Mg Tablet PO 650 mg Q6H PRN Administration Headache/Pain Mild Scale (1-3) Al Hydroxide/Mg Hydroxide 30 ml 01/06/21 14:48 01/07/21 22:02 Magnesium Hydrox/Alum Hydrox 30 Ml Oral.Susp PO 30 ml Q6H PRN Administration Heartburn/Nausea Furosemide 20 mg 01/08/21 09:00 01/12/21 10:16 Furosemide 20 Mg Tablet PO 20 mg Q48H MICAELA Administration Protocol Haloperidol 5 mg 01/13/21 15:00 Haloperidol 5 Mg Tablet PO TID MICAELA Magnesium Hydroxide 30 ml 01/06/21 14:48 Milk Of Magnesia 30 Ml Oral.Susp PO DAILY PRN Constipation Memantine 10 mg 01/07/21 21:00 01/13/21 08:31 Memantine Hcl 10 Mg Tablet PO 10 mg BID [facility] Administration Metoprolol Succinate 25 mg 01/08/21 09:00 01/13/21 08:45 Metoprolol Succinate Er 25 Mg Tab.Er.24h PO Not Given DAILY [facility] Protocol Mirtazapine 7.5 mg 01/12/21 21:00 01/12/21 21:43 Mirtazapine 7.5 Mg Tablet PO 7.5 mg BEDTIME MICAELA Administration Propafenone HCl 150 mg 01/07/21 21:00 01/13/21 08:31 Propafenone Hcl 150 Mg Tablet PO 150 mg BID [facility] Administration Sertraline HCl 25 mg 01/07/21 20:15 01/13/21 08:32 Sertraline Hcl 25 Mg Tablet PO 25 mg DAILY MICAELA Administration Trazodone HCl 50 mg 01/06/21 14:48 01/13/21 00:23 Trazodone Hcl 50 Mg Tablet PO 50 mg BEDTIME PRN Administration Insomnia Warfarin Sodium 7.5 mg 01/12/21 18:00 Warfarin Sodium 7.5 Mg Tablet PO DAILY@1800 [facility] Allergies Allergies Allergy/AdvReac Type Severity Reaction Status Date / Time No Known Allergies Allergy Verified 01/06/21 14:48 Assessment & Plan Assessment & Plan (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 He was admitted due to the presence of psychotic symptoms without a clear stressor. Historically, the patient has never been psychotic and he did not have any prior psychiatric history. Plan 1. Discontinue Zyprexa. 2. Start Haldol 5 mg p.o. t.i.d. and 5 mg p.o. b.i.d. p.r.n. agitation. 3. CBC to check changes of H&H for tomorrow a.m.. 4. The has been informed of the changes in medications. Greater than 50% of the session was spent on counseling and/or coordination of care Reason for contiued inpatient stay Substantial Risk for: harm to others, inability to function, rapid decompensation and med/psych decompensation
[2021-01-13] MEDS: Mirtazapine 7.5 MG TABLET PO (20:01)
[2021-01-14 06:00] VITALS: BP 89/57; PULSE 125; RESP 20; TEMP 36.8; O2SAT 96
[2021-01-14 06:29] LABS: MANUAL DIFF FLAG NO
[2021-01-14 06:41] LABS: Basophils Percent Auto 0.4 % (0-2); Eosinophils Absolute Auto 0.2 X10*3/uL (0.0-0.4); Eosinophils Percent Auto 2.5 % (0-4); Hematocrit 34.4 % (42-52); Hemoglobin 11.2 g/dl (14.0-18.0); Imm Gran Abs Auto 0.03 X10*3/uL (0.00-0.03); Imm Gran Pct Auto 0.4 % (0.0-0.4); Lymphocytes Absolute Auto 1.8 X10*3/uL (1.2-4.9); Lymphocytes Percent Auto 23.7 % (20-40); Mean Corpuscular HGB Conc 32.6 g/dl (31.0-36.0); Mean Corpuscular Hemoglobin 29.6 pg (27.0-33.0); Mean Corpuscular Volume 90.8 fL (80-98); Mean Platelet Volume 9.9 fL (9.4-12.4); Neutrophils Absolute Auto 4.5 X10*3/uL (2.0-8.3); Platelet Count 253 X10*3/uL (160-400); Red Blood Count 3.79 X10*6/uL (4.60-5.80); Red Cell Distribution Width 14.6 % (11.0-16.0); White Blood Count 7.5 X10*3/uL (4.8-10.8)
[2021-01-14 06:55] LABS: INTERNATIONAL NORM RATIO 2.4 (0.9-1.1); Prothrombin Time 28.2 SEC (9.9-13.0)
[2021-01-14 07:21] LABS: Anion Gap 12 (12-20); Blood Urea Nitrogen 16 mg/dL (9-16); Calcium 8.4 mg/dL (8.4-10.2); Carbon Dioxide 26 mmol/L (22-29); Chloride 108 mmol/L (96-108); Estimated Glomerular Filt Rate > 60; Glucose Random 99 mg/dL (60-115); Potassium 3.9 mmol/L (3.3-5.1); Sodium 142 mmol/L (135-145)
[2021-01-14] MEDS: Memantine HCl 10 MG TABLET PO ×2 (10:20→21:23)
[2021-01-14] MEDS: HaloperidoL 5 MG TABLET PO ×3 (10:20→22:09)
[2021-01-14] MEDS: Furosemide 20 MG TABLET PO (10:20)
[2021-01-14 10:21] VITALS: BP 89/57; PULSE 125
[2021-01-14] MEDS: Metoprolol Succinate ER 25 MG TAB.ER.24H PO (10:21)
[2021-01-14] MEDS: Sertraline HCL 25 MG TABLET PO (10:23)
--- NOTE | 2021-01-14 12:23 | HO.PSYCHPN ---
Subjective Subjective Date of Service: 01/14/21 Reason For Visit: Unspecified Depressive Disorder Interim History: Nursing staff reported the patient slept well last night. He looks less agitated and responding less to internal stimuli. The chest x-ray and CT scan came back normal , CBC with differential came back without changes On interview, the patient was confused, she denied auditory hallucinations but he seems internally preoccupied. On physical exam, there was minimal EPS. Review of Systems Acute medical concerns: No Medical Review of Systems: unchanged Mental Status Exam Mental Status Exam Patient Appearance: Disheveled Patient Orientation: Person Level of Consciousness: Awake and Disoriented Patient Behavior: Passive and Suspicious Mood Description: Withdrawn Affect Description: Labile Patient Cognition Impaired: Yes Ability to Follow Directions: Fair Speech Pattern: Clear Hallucinations: None Delusions: Paranoid Ideation Thought Process: Distracted and Slowed Thinking Thought Content: positive for Poverty of Content, positive for Preoccupation and positive for Thought Blocking Judgement: Poor Diagnostics Vital Signs (24Hr): Vital Signs - 24 hr 01/14/21 06:00 01/14/21 10:21 Temperature 98.2 F Pulse Rate 125 H 125 H Respiratory Rate 20 Blood Pressure 89/57 L 89/57 L Pulse Oximetry 96 Labs Results: 01/14/21 06:25 01/14/21 06:25 Labs: Laboratory Results - last 48 hr 01/13/21 01/14/21 01/14/21 06:45 06:24 06:25 WBC 7.5 RBC 3.79 L Hgb 11.2 L Hct 34.4 L MCV 90.8 MCH 29.6 MCHC 32.6 RDW 14.6 Plt Count 253 MPV 9.9 Immature Gran % (Auto) 0.4 Neut % (Auto) 60.0 Lymph % (Auto) 23.7 [place] % (Auto) 13.0 H Eos % (Auto) 2.5 Baso % (Auto) 0.4 Lymph # (Auto) 1.8 [place] # (Auto) 1.0 Eos # (Auto) 0.2 Baso # (Auto) 0.0 Abs Immat Gran (auto) 0.03 Absolute Neuts (auto) 4.5 Absolute Nucleated RBC 0.000 Nucleated RBC % (auto) 0.0 PT 33.4 H D 28.2 H INR 2.9 H 2.4 H Sodium Potassium Chloride Carbon Dioxide Anion Gap BUN Creatinine Estim Creat Clear Calc Estimated GFR Random Glucose Calcium 01/14/21 06:25 WBC RBC Hgb Hct MCV MCH MCHC RDW Plt Count MPV Immature Gran % (Auto) Neut % (Auto) Lymph % (Auto) [place] % (Auto) Eos % (Auto) Baso % (Auto) Lymph # (Auto) [place] # (Auto) Eos # (Auto) Baso # (Auto) Abs Immat Gran (auto) Absolute Neuts (auto) Absolute Nucleated RBC Nucleated RBC % (auto) PT INR Sodium 142 Potassium 3.9 Chloride 108 Carbon Dioxide 26 Anion Gap 12 BUN 16 Creatinine 0.84 Estim Creat Clear Calc TNP Estimated GFR > 60 Random Glucose 99 Calcium 8.4 Imaging Radiology Impressions: ITS Impressions Head CT 01/13/21 05:50 IMPRESSION: No acute intracranial pathology. Lumbar Spine X-Ray 01/13/21 14:31 IMPRESSION: Mild to moderate thoracolumbar levoscoliosis and multilevel degenerative changes including L4-5 grade 1 anterolisthesis without overt acute abnormality. Medications Medications Current Medications Generic Name Dose Route Start Last Admin Trade Name Freq PRN Reason Stop Dose Admin Acetaminophen 650 mg 01/06/21 14:48 01/13/21 11:21 Acetaminophen 325 Mg Tablet PO 650 mg Q6H PRN Administration Headache/Pain Mild Scale (1-3) Al Hydroxide/Mg Hydroxide 30 ml 01/06/21 14:48 01/07/21 22:02 Magnesium Hydrox/Alum Hydrox 30 Ml Oral.Susp PO 30 ml Q6H PRN Administration Heartburn/Nausea Furosemide 20 mg 01/08/21 09:00 01/14/21 10:20 Furosemide 20 Mg Tablet PO 20 mg Q48H MICAELA Administration Protocol Haloperidol 5 mg 01/13/21 15:00 01/14/21 10:20 Haloperidol 5 Mg Tablet PO 5 mg TID MICAELA Administration Magnesium Hydroxide 30 ml 01/06/21 14:48 Milk Of Magnesia 30 Ml Oral.Susp PO DAILY PRN Constipation Memantine 10 mg 01/07/21 21:00 01/14/21 10:20 Memantine Hcl 10 Mg Tablet PO 10 mg BID MICAELA Administration Metoprolol Succinate 25 mg 01/08/21 09:00 01/14/21 10:21 Metoprolol Succinate Er 25 Mg Tab.Er.24h PO 25 mg DAILY MICAELA Administration Protocol Mirtazapine 7.5 mg 01/12/21 21:00 01/13/21 20:01 Mirtazapine 7.5 Mg Tablet PO 7.5 mg BEDTIME MICAELA Administration Propafenone HCl 150 mg 01/07/21 21:00 01/14/21 10:23 Propafenone Hcl 150 Mg Tablet PO 150 mg BID MICAELA Administration Sertraline HCl 25 mg 01/07/21 20:15 01/14/21 10:23 Sertraline Hcl 25 Mg Tablet PO 25 mg DAILY MICAELA Administration Trazodone HCl 50 mg 01/06/21 14:48 01/13/21 20:00 Trazodone Hcl 50 Mg Tablet PO 50 mg BEDTIME PRN Administration Insomnia Warfarin Sodium 7.5 mg 01/12/21 18:00 Warfarin Sodium 7.5 Mg Tablet PO DAILY@1800 MICAELA Allergies Allergies Allergy/AdvReac Type Severity Reaction Status Date / Time No Known Allergies Allergy Verified 01/06/21 14:48 Assessment & Plan Assessment & Plan (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 He was admitted due to the presence of psychotic symptoms without a clear stressor. Historically, the patient has never been psychotic and he did not have any prior psychiatric history. Plan 1. Discontinue Zyprexa. 2. Keep Haldol 5 mg p.o. t.i.d. Greater than 50% of the session was spent on counseling and/or coordination of care Reason for contiued inpatient stay Substantial Risk for: inability to function, rapid decompensation and med/psych decompensation
[2021-01-14] MEDS: Warfarin Sodium 7.5 MG TABLET PO (17:34)
[2021-01-14 18:00] VITALS: BP 113/89; PULSE 82; RESP 19; TEMP 36.7; O2SAT 98
--- NOTE | 2021-01-14 20:31 | PC.NURSE ---
PT is adamantly refusing medications. PT agreed to take one med at a time and then after he took his Rythmol he refused remaining meds. Spitting the meds on the floor after putting them in his mouth.
[2021-01-14] MEDS: Mirtazapine 7.5 MG TABLET PO (21:23)
--- NOTE | 2021-01-14 22:09 | PC.NURSE ---
PT later agreed to take the rest of his meds. PT was still very resistant to taking meds.
[2021-01-15 06:00] VITALS: BP 96/54; PULSE 93; TEMP 36.8; O2SAT 97
[2021-01-15] MEDS: Sertraline HCL 25 MG TABLET PO (07:56)
[2021-01-15] MEDS: Memantine HCl 10 MG TABLET PO ×2 (07:56→20:07)
[2021-01-15] MEDS: HaloperidoL 5 MG TABLET PO ×3 (07:56→20:05)
[2021-01-15] MEDS: Metoprolol Succinate ER 25 MG TAB.ER.24H PO (07:56)
[2021-01-15 08:25] LABS: INTERNATIONAL NORM RATIO 1.9 (0.9-1.1); Prothrombin Time 22.3 SEC (9.9-13.0)
--- NOTE | 2021-01-15 11:45 | HO.PSYCHPN ---
Subjective Subjective Date of Service: 01/15/21 Reason For Visit: Unspecified Depressive Disorder Subjective Notes: Conditional Voluntary (Healthcare proxy invoked) Healthcare Proxy: Yes Interim History: The patient remains on one-to-one observation. Nursing staff reported he slept well last night but he is confused, paranoid, responding to internal stimuli no, unable to take care of himself. On interview, the patient reported that ?this place with not be there anymore and other disorganized phrases Mental Status Exam Mental Status Exam Patient Appearance: Disheveled Patient Orientation: Person Level of Consciousness: Awake Patient Behavior: Guarded and Posturing Mood Description: Withdrawn Affect Description: Constricted Patient Cognition Impaired: Yes Ability to Follow Directions: Fair Speech Pattern: Clear Hallucinations: Auditory and Visual Delusions: Paranoid Ideation Thought Process: Intact Thought Content: positive for Poverty of Content and positive for Loose Associations Judgement: Poor Diagnostics Vital Signs (24Hr): Vital Signs - 24 hr 01/14/21 18:00 01/15/21 06:00 Temperature 98.1 F 98.2 F Pulse Rate 82 93 Respiratory Rate 19 Blood Pressure 113/89 96/54 L Pulse Oximetry 98 97 Labs Results: 01/14/21 06:25 01/14/21 06:25 Labs: Laboratory Results - last 48 hr 01/14/21 01/14/21 01/14/21 06:24 06:25 06:25 WBC 7.5 RBC 3.79 L Hgb 11.2 L Hct 34.4 L MCV 90.8 MCH 29.6 MCHC 32.6 RDW 14.6 Plt Count 253 MPV 9.9 Immature Gran % (Auto) 0.4 Neut % (Auto) 60.0 Lymph % (Auto) 23.7 Harney % (Auto) 13.0 H Eos % (Auto) 2.5 Baso % (Auto) 0.4 Lymph # (Auto) 1.8 Harney # (Auto) 1.0 Eos # (Auto) 0.2 Baso # (Auto) 0.0 Abs Immat Gran (auto) 0.03 Absolute Neuts (auto) 4.5 Absolute Nucleated RBC 0.000 Nucleated RBC % (auto) 0.0 PT 28.2 H INR 2.4 H Sodium 142 Potassium 3.9 Chloride 108 Carbon Dioxide 26 Anion Gap 12 BUN 16 Creatinine 0.84 Estim Creat Clear Calc TNP Estimated GFR > 60 Random Glucose 99 Calcium 8.4 08/26/21 07:41 WBC RBC Hgb Hct MCV MCH MCHC RDW Plt Count MPV Immature Gran % (Auto) Neut % (Auto) Lymph % (Auto) Harney % (Auto) Eos % (Auto) Baso % (Auto) Lymph # (Auto) Harney # (Auto) Eos # (Auto) Baso # (Auto) Abs Immat Gran (auto) Absolute Neuts (auto) Absolute Nucleated RBC Nucleated RBC % (auto) PT 22.3 H D INR 1.9 H Sodium Potassium Chloride Carbon Dioxide Anion Gap BUN Creatinine Estim Creat Clear Calc Estimated GFR Random Glucose Calcium Imaging Radiology Impressions: ITS Impressions Head CT 01/13/21 05:50 IMPRESSION: No acute intracranial pathology. Lumbar Spine X-Ray 01/13/21 14:31 IMPRESSION: Mild to moderate thoracolumbar levoscoliosis and multilevel degenerative changes including L4-5 grade 1 anterolisthesis without overt acute abnormality. Medications Medications Current Medications Generic Name Dose Route Start Last Admin Trade Name Freq PRN Reason Stop Dose Admin Acetaminophen 650 mg 01/06/21 14:48 01/13/21 11:21 Acetaminophen 325 Mg Tablet PO 650 mg Q6H PRN Administration Headache/Pain Mild Scale (1-3) Al Hydroxide/Mg Hydroxide 30 ml 01/06/21 14:48 01/07/21 22:02 Magnesium Hydrox/Alum Hydrox 30 Ml Oral.Susp PO 30 ml Q6H PRN Administration Heartburn/Nausea Furosemide 20 mg 01/08/21 09:00 01/14/21 10:20 Furosemide 20 Mg Tablet PO 20 mg Q48H MICAELA Administration Protocol Haloperidol 5 mg 01/13/21 15:00 01/15/21 07:56 Haloperidol 5 Mg Tablet PO 5 mg TID MICAELA Administration Magnesium Hydroxide 30 ml 01/06/21 14:48 Milk Of Magnesia 30 Ml Oral.Susp PO DAILY PRN Constipation Memantine 10 mg 01/07/21 21:00 01/15/21 07:56 Memantine Hcl 10 Mg Tablet PO 10 mg BID MICAELA Administration Metoprolol Succinate 25 mg 01/08/21 09:00 01/15/21 07:56 Metoprolol Succinate Er 25 Mg Tab.Er.24h PO 25 mg DAILY MICAELA Administration Protocol Mirtazapine 7.5 mg 01/12/21 21:00 01/14/21 21:23 Mirtazapine 7.5 Mg Tablet PO 7.5 mg BEDTIME MICAELA Administration Propafenone HCl 150 mg 01/07/21 21:00 01/15/21 07:56 Propafenone Hcl 150 Mg Tablet PO 150 mg BID MICAELA Administration Sertraline HCl 25 mg 01/07/21 20:15 01/15/21 07:56 Sertraline Hcl 25 Mg Tablet PO 25 mg DAILY MICAELA Administration Trazodone HCl 50 mg 01/06/21 14:48 01/13/21 20:00 Trazodone Hcl 50 Mg Tablet PO 50 mg BEDTIME PRN Administration Insomnia Warfarin Sodium 7.5 mg 01/12/21 18:00 01/14/21 17:34 Warfarin Sodium 7.5 Mg Tablet PO 7.5 mg DAILY@1800 MICAELA Administration Allergies Allergies Allergy/AdvReac Type Severity Reaction Status Date / Time No Known Allergies Allergy Verified 01/06/21 14:48 Assessment & Plan Assessment & Plan (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 He was admitted due to the presence of psychotic symptoms without a clear stressor. Historically, the patient has never been psychotic and he did not have any prior psychiatric history. Plan 1. Discontinue Zyprexa. 2. Continue Haldol 5 mg p.o. t.i.d. Greater than 50% of the session was spent on counseling and/or coordination of care Reason for contiued inpatient stay Substantial Risk for: inability to function, rapid decompensation and med/psych decompensation
[2021-01-15] MEDS: traZODone HCL 25 MG HALFTAB PO (15:19)
[2021-01-15 18:48] VITALS: BP 118/66; PULSE 79; RESP 18; TEMP 36.9; O2SAT 99
[2021-01-15] MEDS: Mirtazapine 7.5 MG TABLET PO (20:05)
[2021-01-15] MEDS: traZODone HCL 50 MG TABLET PO (20:05)
[2021-01-15] MEDS: Warfarin Sodium 7.5 MG TABLET PO (20:06)
[2021-01-16] MEDS: Sertraline HCL 25 MG TABLET PO (08:03)
[2021-01-16] MEDS: HaloperidoL 5 MG TABLET PO ×3 (08:03→20:46)
[2021-01-16] MEDS: Memantine HCl 10 MG TABLET PO ×2 (08:03→20:46)
[2021-01-16 08:29] VITALS: BP 134/61; PULSE 88
[2021-01-16] MEDS: Metoprolol Succinate ER 25 MG TAB.ER.24H PO (08:29)
[2021-01-16] MEDS: Furosemide 20 MG TABLET PO (08:29)
[2021-01-16 09:04] VITALS: BP 134/61; PULSE 88; TEMP 36.4; O2SAT 96
[2021-01-16 09:16] LABS: INTERNATIONAL NORM RATIO 2.2 (0.9-1.1); Prothrombin Time 25.1 SEC (9.9-13.0)
--- NOTE | 2021-01-16 15:07 | HO.PSYCHPN ---
Subjective Subjective Date of Service: 01/16/21 Reason For Visit: Unspecified Depressive Disorder Subjective Notes: Conditional Voluntary Interim History: Nursing staff reported history in one-to-one, he seems less agitated but he stated psychotic and confused. Sometimes he is combative but he is easily redirectable. 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 reported that the family is fully aware that he needs to be discharged to a SNF Mental Status Exam Mental Status Exam Patient Appearance: Well Grooomed Patient Orientation: Person Level of Consciousness: Appropriate and Disoriented Patient Behavior: Suspicious Mood Description: Constricted Affect Description: Labile Patient Cognition Impaired: Yes Ability to Follow Directions: Fair Speech Pattern: Rambling Hallucinations: Auditory and Visual Delusions: Paranoid Ideation Thought Process: Disoriented and Illogical Thought Content: positive for Loose Associations Judgement: Poor Diagnostics Vital Signs (24Hr): Vital Signs - 24 hr 01/15/21 18:48 01/16/21 08:29 01/16/21 09:04 Temperature 98.5 F 97.5 F Pulse Rate 79 88 88 Respiratory Rate 18 Blood Pressure 118/66 134/61 134/61 Pulse Oximetry 99 96 Labs Results: 01/14/21 06:25 01/14/21 06:25 Labs: Laboratory Results - last 48 hr 01/15/21 01/16/21 07:41 08:03 PT 22.3 H D 25.1 H INR 1.9 H 2.2 H Imaging Radiology Impressions: ITS Impressions Head CT 01/13/21 05:50 IMPRESSION: No acute intracranial pathology. Lumbar Spine X-Ray 01/13/21 14:31 IMPRESSION: Mild to moderate thoracolumbar levoscoliosis and multilevel degenerative changes including L4-5 grade 1 anterolisthesis without overt acute abnormality. Medications Medications Current Medications Generic Name Dose Route Start Last Admin Trade Name Freq PRN Reason Stop Dose Admin Acetaminophen 650 mg 01/06/21 14:48 01/13/21 11:21 Acetaminophen 325 Mg Tablet PO 650 mg Q6H PRN Administration Headache/Pain Mild Scale (1-3) Al Hydroxide/Mg Hydroxide 30 ml 01/06/21 14:48 01/07/21 22:02 Magnesium Hydrox/Alum Hydrox 30 Ml Oral.Susp PO 30 ml Q6H PRN Administration Heartburn/Nausea Furosemide 20 mg 01/08/21 09:00 01/16/21 08:29 Furosemide 20 Mg Tablet PO 20 mg Q48H MICAELA Administration Protocol Haloperidol 5 mg 01/13/21 15:00 01/16/21 13:58 Haloperidol 5 Mg Tablet PO 5 mg TID MICAELA Administration Magnesium Hydroxide 30 ml 01/06/21 14:48 Milk Of Magnesia 30 Ml Oral.Susp PO DAILY PRN Constipation Memantine 10 mg 01/07/21 21:00 01/16/21 08:03 Memantine Hcl 10 Mg Tablet PO 10 mg BID MICAELA Administration Metoprolol Succinate 25 mg 01/08/21 09:00 01/16/21 08:29 Metoprolol Succinate Er 25 Mg Tab.Er.24h PO 25 mg DAILY MICAELA Administration Protocol Mirtazapine 7.5 mg 01/12/21 21:00 01/15/21 20:05 Mirtazapine 7.5 Mg Tablet PO 7.5 mg BEDTIME MICAELA Administration Propafenone HCl 150 mg 01/07/21 21:00 01/16/21 08:03 Propafenone Hcl 150 Mg Tablet PO 150 mg BID MICAELA Administration Sertraline HCl 25 mg 01/07/21 20:15 01/16/21 08:03 Sertraline Hcl 25 Mg Tablet PO 25 mg DAILY MICAELA Administration Trazodone HCl 50 mg 01/06/21 14:48 01/15/21 20:05 Trazodone Hcl 50 Mg Tablet PO 50 mg BEDTIME PRN Administration Insomnia Trazodone HCl 25 mg 01/15/21 15:00 01/15/21 19:58 Trazodone Hcl 25 Mg Halftab PO Not Given DAILY@1700 [facility] Warfarin Sodium 7.5 mg 01/12/21 18:00 01/15/21 20:06 Warfarin Sodium 7.5 Mg Tablet PO 7.5 mg DAILY@1800 MICAELA Administration Allergies Allergies Allergy/AdvReac Type Severity Reaction Status Date / Time No Known Allergies Allergy Verified 01/06/21 14:48 Assessment & Plan Assessment & Plan (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 He was admitted due to the presence of psychotic symptoms without a clear stressor. Historically, the patient has never been psychotic and he did not have any prior psychiatric history. Plan 1. Discontinue Zyprexa. 2. Continue Haldol 5 mg p.o. t.i.d. Greater than 50% of the session was spent on counseling and/or coordination of care Reason for contiued inpatient stay Substantial Risk for: harm to others, inability to function, rapid decompensation and med/psych decompensation
[2021-01-16 18:00] VITALS: BP 105/59; PULSE 86; TEMP 36.6; O2SAT 99
[2021-01-16] MEDS: traZODone HCL 25 MG HALFTAB PO (18:12)
[2021-01-16] MEDS: Warfarin Sodium 7.5 MG TABLET PO (18:12)
[2021-01-16] MEDS: traZODone HCL 50 MG TABLET PO (20:46)
[2021-01-16] MEDS: Mirtazapine 7.5 MG TABLET PO (20:47)
--- NOTE | 2021-01-16 22:49 | PC.NURSE ---
PT combative toward staff member this shift, easily redirected. PT grabbed staff person by the wrist and held tight and squeezed.
[2021-01-17] MEDS: Sertraline HCL 25 MG TABLET PO (08:46)
[2021-01-17] MEDS: Metoprolol Succinate ER 25 MG TAB.ER.24H PO (08:47)
[2021-01-17] MEDS: Memantine HCl 10 MG TABLET PO ×2 (08:47→20:55)
[2021-01-17] MEDS: HaloperidoL 5 MG TABLET PO ×3 (08:47→20:55)
[2021-01-17 09:19] VITALS: BP 107/58; PULSE 90; TEMP 36.2; O2SAT 95
[2021-01-17 12:23] LABS: INTERNATIONAL NORM RATIO 3.1 (0.9-1.1); Prothrombin Time 36.1 SEC (9.9-13.0)
[2021-01-17] MEDS: traZODone HCL 25 MG HALFTAB PO (16:23)
[2021-01-17] MEDS: Mirtazapine 7.5 MG TABLET PO (20:55)
[2021-01-17 20:58] VITALS: BP 130/61; PULSE 78; RESP 18; TEMP 36.2; O2SAT 96
--- NOTE | 2021-01-17 23:23 | HO.PSYCHPN ---
Subjective Subjective Date of Service: 01/17/21 Reason For Visit: Unspecified Depressive Disorder Healthcare Proxy: Yes Medical Problems Affecting Mental Status: Yes Mental Status Exam Mental Status Exam Patient Appearance: Well Grooomed Patient Orientation: Person Level of Consciousness: Awake and Disoriented Patient Behavior: Suspicious Mood Description: Constricted Affect Description: Labile Patient Cognition Impaired: Yes Ability to Follow Directions: Fair Speech Pattern: Rambling Hallucinations: Auditory and Visual Delusions: Paranoid Ideation Thought Process: Disoriented and Illogical Thought Content: positive for Loose Associations Judgement: Poor Diagnostics Vital Signs (24Hr): Vital Signs - 24 hr 01/17/21 09:19 01/17/21 20:58 Temperature 97.2 F 97.2 F Pulse Rate 90 78 Respiratory Rate 18 Blood Pressure 107/58 L 130/61 Pulse Oximetry 95 96 Labs Results: 01/14/21 06:25 01/14/21 06:25 Labs: Laboratory Results - last 48 hr 01/16/21 01/17/21 08:03 11:43 PT 25.1 H 36.1 H D INR 2.2 H 3.1 H Imaging Radiology Impressions: ITS Impressions Head CT 01/13/21 05:50 IMPRESSION: No acute intracranial pathology. Lumbar Spine X-Ray 01/13/21 14:31 IMPRESSION: Mild to moderate thoracolumbar levoscoliosis and multilevel degenerative changes including L4-5 grade 1 anterolisthesis without overt acute abnormality. Medications Medications Current Medications Generic Name Dose Route Start Last Admin Trade Name Freq PRN Reason Stop Dose Admin Acetaminophen 650 mg 01/06/21 14:48 01/13/21 11:21 Acetaminophen 325 Mg Tablet PO 650 mg Q6H PRN Administration Headache/Pain Mild Scale (1-3) Al Hydroxide/Mg Hydroxide 30 ml 01/06/21 14:48 01/07/21 22:02 Magnesium Hydrox/Alum Hydrox 30 Ml Oral.Susp PO 30 ml Q6H PRN Administration Heartburn/Nausea Furosemide 20 mg 01/08/21 09:00 01/16/21 08:29 Furosemide 20 Mg Tablet PO 20 mg Q48H MICAELA Administration Protocol Haloperidol 5 mg 01/13/21 15:00 01/17/21 20:55 Haloperidol 5 Mg Tablet PO 5 mg TID MICAELA Administration Magnesium Hydroxide 30 ml 01/06/21 14:48 Milk Of Magnesia 30 Ml Oral.Susp PO DAILY PRN Constipation Memantine 10 mg 01/07/21 21:00 01/17/21 20:55 Memantine Hcl 10 Mg Tablet PO 10 mg BID MICAELA Administration Metoprolol Succinate 25 mg 01/08/21 09:00 01/17/21 08:47 Metoprolol Succinate Er 25 Mg Tab.Er.24h PO 25 mg DAILY MICAELA Administration Protocol Mirtazapine 7.5 mg 01/12/21 21:00 01/17/21 20:55 Mirtazapine 7.5 Mg Tablet PO 7.5 mg BEDTIME MICAELA Administration Propafenone HCl 150 mg 01/07/21 21:00 01/17/21 20:55 Propafenone Hcl 150 Mg Tablet PO 150 mg BID MICAELA Administration Sertraline HCl 25 mg 01/07/21 20:15 01/17/21 08:46 Sertraline Hcl 25 Mg Tablet PO 25 mg DAILY MICAELA Administration Trazodone HCl 50 mg 01/06/21 14:48 01/16/21 20:46 Trazodone Hcl 50 Mg Tablet PO 50 mg BEDTIME PRN Administration Insomnia Trazodone HCl 25 mg 01/15/21 15:00 01/17/21 16:23 Trazodone Hcl 25 Mg Halftab PO 25 mg DAILY@1700 MICAELA Administration Warfarin Sodium 7.5 mg 01/12/21 18:00 01/16/21 18:12 Warfarin Sodium 7.5 Mg Tablet PO 7.5 mg DAILY@1800 MICAELA Administration Allergies Allergies Allergy/AdvReac Type Severity Reaction Status Date / Time No Known Allergies Allergy Verified 01/06/21 14:48 Assessment & Plan Assessment & Plan (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 He was admitted due to the presence of psychotic symptoms without a clear stressor. Historically, the patient has never been psychotic and he did not have any prior psychiatric history. Plan 2. Continue Haldol 5 mg p.o. t.i.d. Patient has had a number of falls he is being monitored rapid decline unclear etiology Referral to [facility] Greater than 50% of the session was spent on counseling and/or coordination of care Reason for contiued inpatient stay Substantial Risk for: inability to function, rapid decompensation and med/psych decompensation
[2021-01-18 06:00] VITALS: BP 101/55; PULSE 68; RESP 16; TEMP 36.3; O2SAT 96
[2021-01-18 07:52] LABS: INTERNATIONAL NORM RATIO 3.6 (0.9-1.1); Prothrombin Time 42.3 SEC (9.9-13.0)
[2021-01-18 08:00] VITALS: BMI 29.4
[2021-01-18] MEDS: Sertraline HCL 25 MG TABLET PO (08:34)
[2021-01-18 08:35] VITALS: BP 101/55; PULSE 68
[2021-01-18] MEDS: Furosemide 20 MG TABLET PO (08:35)
[2021-01-18] MEDS: Metoprolol Succinate ER 25 MG TAB.ER.24H PO (08:35)
[2021-01-18] MEDS: HaloperidoL 5 MG TABLET PO (08:35)
[2021-01-18] MEDS: Memantine HCl 10 MG TABLET PO ×2 (08:36→19:54)
[2021-01-18] MEDS: HaloperidoL 5 MG TABLET 2.5 MG PO ×2 (14:32→19:53)
[2021-01-18 18:38] VITALS: BP 120/56; PULSE 76; RESP 16; TEMP 36.8; O2SAT 97
--- NOTE | 2021-01-18 18:43 | PC.NURSE ---
Patient has skin tear to L forearm. Consult to wound care ordered. Dressing changed using padded non adhesive pad with gauze roll. Patient tolerated well.
[2021-01-18] MEDS: Mirtazapine 7.5 MG TABLET PO (19:55)
[2021-01-18] MEDS: traZODone HCL 25 MG HALFTAB PO (19:55)
[2021-01-19] MEDS: Acetaminophen 325 MG TABLET 650 MG PO (02:30)
[2021-01-19 07:34] LABS: INTERNATIONAL NORM RATIO 2.6 (0.9-1.1); Prothrombin Time 30.1 SEC (9.9-13.0)
[2021-01-19 08:00] VITALS: BMI 29.3
[2021-01-19] MEDS: Sertraline HCL 25 MG TABLET PO (10:19)
[2021-01-19] MEDS: HaloperidoL 5 MG TABLET 2.5 MG PO ×3 (10:19→20:37)
[2021-01-19 10:20] VITALS: BP 105/60; PULSE 69
[2021-01-19] MEDS: Memantine HCl 10 MG TABLET PO ×2 (10:20→20:37)
[2021-01-19] MEDS: Metoprolol Succinate ER 25 MG TAB.ER.24H PO (10:20)
--- NOTE | 2021-01-19 11:56 | HO.PSYCHPN ---
Subjective Subjective Date of Service: 01/20/21 Reason For Visit: Unspecified Depressive Disorder Interim History: Per nursing, pt overall in much more behavioral control. No behavioral outburst over the weekend or last night. Pt does not appears to reach to things that are not there. Pt ambulating with walker and on one to one due to gait instability thought to be caused by medication as they are being adjusted and decreased. Pt reports sleeping and eating well. He is not oriented to place, months, situation, not sure why he is in this place. No SI/HI. NO cogwheel on exam- no signs of EPS with haldol. Medication Compliance: Yes Side effects from medications: No Review of Systems Review of Systems Yes Unobtainable due to mental status Mental Status Exam Mental Status Exam Narrative: Appearance: casually groomed, good hygiene in NAD Behavior:cooperative psychomotor: no agitation or agitation noted Speech: mostly clear, some expressive aphasia noted, spontaneous Thought process:poverty of thought Thought content:no overt psychosis Mood: good Affect: congruent SI: none HI:none VH/AH:does not appear internally preoccupied as before Delusions:none Insight/judgment:impaired x 2. Memory/cog: alert, not oriented to place, months, date nor situation, underlying neurocognitive disorder. Diagnostics Vital Signs (24Hr): Vital Signs - 24 hr 01/19/21 18:00 01/20/21 06:00 01/20/21 08:36 Temperature 97.6 F 98.0 F Pulse Rate 77 80 80 Respiratory Rate 18 16 Blood Pressure 128/61 105/56 L 105/56 L Pulse Oximetry 98 97 Body Mass Index 29.2 Labs Results: 01/14/21 06:25 01/14/21 06:25 Labs: Laboratory Results - last 48 hr 01/19/21 01/20/21 07:13 06:12 PT 30.1 H D 19.6 H D INR 2.6 H 1.7 H Imaging Radiology Impressions: ITS Impressions Head CT 01/13/21 05:50 IMPRESSION: No acute intracranial pathology. Lumbar Spine X-Ray 01/13/21 14:31 IMPRESSION: Mild to moderate thoracolumbar levoscoliosis and multilevel degenerative changes including L4-5 grade 1 anterolisthesis without overt acute abnormality. Medications Medications Current Medications Generic Name Dose Route Start Last Admin Trade Name Freq PRN Reason Stop Dose Admin Acetaminophen 650 mg 01/06/21 14:48 01/19/21 02:30 Acetaminophen 325 Mg Tablet PO 650 mg Q6H PRN Administration Headache/Pain Mild Scale (1-3) Al Hydroxide/Mg Hydroxide 30 ml 01/06/21 14:48 01/07/21 22:02 Magnesium Hydrox/Alum Hydrox 30 Ml Oral.Susp PO 30 ml Q6H PRN Administration Heartburn/Nausea Furosemide 20 mg 01/08/21 09:00 01/20/21 08:36 Furosemide 20 Mg Tablet PO 20 mg Q48H MICAELA Administration Protocol Haloperidol 2.5 mg 01/18/21 15:00 01/20/21 08:36 Haloperidol 5 Mg Tablet PO 2.5 mg TID MICAELA Administration Magnesium Hydroxide 30 ml 01/06/21 14:48 Milk Of Magnesia 30 Ml Oral.Susp PO DAILY PRN Constipation Memantine 10 mg 01/07/21 21:00 01/20/21 08:36 Memantine Hcl 10 Mg Tablet PO 10 mg BID MICAELA Administration Metoprolol Succinate 25 mg 01/08/21 09:00 01/20/21 08:36 Metoprolol Succinate Er 25 Mg Tab.Er.24h PO 25 mg DAILY MICAELA Administration Protocol Mirtazapine 7.5 mg 01/12/21 21:00 01/19/21 20:37 Mirtazapine 7.5 Mg Tablet PO 7.5 mg BEDTIME MICAELA Administration Propafenone HCl 150 mg 01/07/21 21:00 01/20/21 08:35 Propafenone Hcl 150 Mg Tablet PO 150 mg BID MICAELA Administration Sertraline HCl 25 mg 01/07/21 20:15 01/20/21 08:36 Sertraline Hcl 25 Mg Tablet PO 25 mg DAILY MICAELA Administration Trazodone HCl 50 mg 01/06/21 14:48 01/16/21 20:46 Trazodone Hcl 50 Mg Tablet PO 50 mg BEDTIME PRN Administration Insomnia Trazodone HCl 25 mg 01/15/21 15:00 01/19/21 17:21 Trazodone Hcl 25 Mg Halftab PO 25 mg DAILY@1700 MICAELA Administration Warfarin Sodium 6 mg 01/19/21 18:00 01/19/21 18:18 Warfarin Sodium 6 Mg Tablet PO 6 mg DAILY@1800 MICAELA Administration Allergies Allergies Allergy/AdvReac Type Severity Reaction Status Date / Time No Known Allergies Allergy Verified 01/06/21 14:48 Assessment & Plan Assessment & Plan (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 He was admitted due to the presence of psychotic symptoms without a clear stressor. Historically, the patient has never been psychotic and he did not have any prior psychiatric history. As of 01/19- pt with much less behavioral disturbances, sleep has significantly improved, underlying neurocognitive disorder, pt not oriented to place, situation, month, year. ambulating with 1:1 due to unsteady gait, which expected to improved as medications are further adjusted. Continue per primary treatment team Plan 2. Continue Haldol 5 mg p.o. t.i.d. Patient has had a number of falls he is being monitored rapid decline unclear etiology Referral to [facility] Greater than 50% of the session was spent on counseling and/or coordination of care Reason for contiued inpatient stay Substantial Risk for: inability to function
[2021-01-19] MEDS: traZODone HCL 25 MG HALFTAB PO (17:21)
[2021-01-19 18:00] VITALS: BP 128/61; PULSE 77; RESP 18; TEMP 36.4; O2SAT 98
[2021-01-19] MEDS: Warfarin Sodium 6 MG TABLET PO (18:18)
[2021-01-19] MEDS: Mirtazapine 7.5 MG TABLET PO (20:37)
[2021-01-20 06:00] VITALS: BP 105/56; PULSE 80; RESP 16; TEMP 36.7; O2SAT 97
[2021-01-20 06:26] LABS: INTERNATIONAL NORM RATIO 1.7 (0.9-1.1); Prothrombin Time 19.6 SEC (9.9-13.0)
[2021-01-20 08:00] VITALS: BMI 29.2
[2021-01-20 08:36] VITALS: BP 105/56; PULSE 80
[2021-01-20] MEDS: Metoprolol Succinate ER 25 MG TAB.ER.24H PO (08:36)
[2021-01-20] MEDS: HaloperidoL 5 MG TABLET 2.5 MG PO ×3 (08:36→20:02)
[2021-01-20] MEDS: Furosemide 20 MG TABLET PO (08:36)
[2021-01-20] MEDS: Sertraline HCL 25 MG TABLET PO (08:36)
[2021-01-20] MEDS: Memantine HCl 10 MG TABLET PO ×2 (08:36→20:02)
--- NOTE | 2021-01-20 12:03 | P.PNPSI_ITS ---
Subjective Subjective Date of Service: 01/20/21 Reason For Visit: Unspecified Depressive Disorder Interim History: Per nursing, pt overall in much more behavioral control. No behavioral outburst over the weekend or last night. Pt does not appears to reach to things that are not there. Pt ambulating with walker and on one to one due to gait instability thought to be caused by medication as they are being adjusted and decreased. Today, pt with brighter affect. When asked how did he sleep, pt reported with my eyes close! Pt denies symptoms of depression or anxiety. Pt reports sleeping and eating well. He is not oriented to place, months, situation, not sure why he is in this place. No SI/HI. No behavioral concerns. NO cogwheel on exam- no signs of EPS with haldol. Review of Systems Review of Systems Yes Unobtainable due to mental status Mental Status Exam Mental Status Exam Narrative: Appearance: casually groomed, good hygiene in NAD Behavior:cooperative psychomotor: no agitation or agitation noted Speech: mostly clear, some expressive aphasia noted, spontaneous Thought process:poverty of thought Thought content:no overt psychosis Mood: good Affect: congruent SI: none HI:none VH/AH:does not appear internally preoccupied as before Delusions:none Insight/judgment:impaired x 2. Memory/cog: alert, not oriented to place, months, date nor situation, underlying neurocognitive disorder. Diagnostics Vital Signs (24Hr): Vital Signs - 24 hr 01/19/21 18:00 01/20/21 06:00 01/20/21 08:36 Temperature 97.6 F 98.0 F Pulse Rate 77 80 80 Respiratory Rate 18 16 Blood Pressure 128/61 105/56 L 105/56 L Pulse Oximetry 98 97 Body Mass Index 29.2 Labs Results: 01/14/21 06:25 01/14/21 06:25 Labs: Laboratory Results - last 48 hr 01/19/21 01/20/21 07:13 06:12 PT 30.1 H D 19.6 H D INR 2.6 H 1.7 H Imaging Radiology Impressions: ITS Impressions Head CT 01/13/21 05:50 IMPRESSION: No acute intracranial pathology. Lumbar Spine X-Ray 01/13/21 14:31 IMPRESSION: Mild to moderate thoracolumbar levoscoliosis and multilevel degenerative changes including L4-5 grade 1 anterolisthesis without overt acute abnormality. Medications Medications Current Medications Generic Name Dose Route Start Last Admin Trade Name Val PRN Reason Stop Dose Admin Acetaminophen 650 mg 01/06/21 14:48 01/19/21 02:30 Acetaminophen 325 Mg Tablet PO 650 mg Q6H PRN Administration Headache/Pain Mild Scale (1-3) Al Hydroxide/Mg Hydroxide 30 ml 01/06/21 14:48 01/07/21 22:02 Magnesium Hydrox/Alum Hydrox 30 Ml Oral.Susp PO 30 ml Q6H PRN Administration Heartburn/Nausea Furosemide 20 mg 01/08/21 09:00 01/20/21 08:36 Furosemide 20 Mg Tablet PO 20 mg Q48H MICAELA Administration Protocol Haloperidol 2.5 mg 01/18/21 15:00 01/20/21 08:36 Haloperidol 5 Mg Tablet PO 2.5 mg TID MICAELA Administration Magnesium Hydroxide 30 ml 01/06/21 14:48 Milk Of Magnesia 30 Ml Oral.Susp PO DAILY PRN Constipation Memantine 10 mg 01/07/21 21:00 01/20/21 08:36 Memantine Hcl 10 Mg Tablet PO 10 mg BID MICAELA Administration Metoprolol Succinate 25 mg 01/08/21 09:00 01/20/21 08:36 Metoprolol Succinate Er 25 Mg Tab.Er.24h PO 25 mg DAILY MICAELA Administration Protocol Mirtazapine 7.5 mg 01/12/21 21:00 01/19/21 20:37 Mirtazapine 7.5 Mg Tablet PO 7.5 mg BEDTIME MICAELA Administration Propafenone HCl 150 mg 01/07/21 21:00 01/20/21 08:35 Propafenone Hcl 150 Mg Tablet PO 150 mg BID MICAELA Administration Sertraline HCl 25 mg 01/07/21 20:15 01/20/21 08:36 Sertraline Hcl 25 Mg Tablet PO 25 mg DAILY MICAELA Administration Trazodone HCl 50 mg 01/06/21 14:48 01/16/21 20:46 Trazodone Hcl 50 Mg Tablet PO 50 mg BEDTIME PRN Administration Insomnia Trazodone HCl 25 mg 01/15/21 15:00 01/19/21 17:21 Trazodone Hcl 25 Mg Halftab PO 25 mg DAILY@1700 MICAELA Administration Warfarin Sodium 6 mg 01/19/21 18:00 01/19/21 18:18 Warfarin Sodium 6 Mg Tablet PO 6 mg DAILY@1800 MICAELA Administration Allergies Allergies Allergy/AdvReac Type Severity Reaction Status Date / Time No Known Allergies Allergy Verified 01/06/21 14:48 Assessment & Plan Assessment & Plan (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 He was admitted due to the presence of psychotic symptoms without a clear stre ssor. Historically, the patient has never been psychotic and he did not have any prior psychiatric history. As of 01/19- pt with much less behavioral disturbances, sleep has significantly improved, underlying neurocognitive disorder, pt not oriented to place, situation, month, year. ambulating with 1:1 due to unsteady gait, which expected to improved as medications are further adjusted. Continue per primary treatment team Plan 2. Continue Haldol 5 mg p.o. t.i.d. Patient has had a number of falls he is being monitored rapid decline unclear etiology Referral to mendez Greater than 50% of the session was spent on counseling and/or coordination of care Reason for contiued inpatient stay Substantial Risk for: inability to function
[2021-01-20] MEDS: traZODone HCL 25 MG HALFTAB PO (16:42)
[2021-01-20] MEDS: Warfarin Sodium 6 MG TABLET PO (17:17)
[2021-01-20] MEDS: Mirtazapine 7.5 MG TABLET PO (20:02)
[2021-01-20 20:25] VITALS: BP 105/54; PULSE 74; RESP 16; TEMP 36.4; O2SAT 98
[2021-01-21] MEDS: Acetaminophen 325 MG TABLET 650 MG PO (01:19)
[2021-01-21 08:00] VITALS: BMI 29.2
[2021-01-21 08:12] LABS: INTERNATIONAL NORM RATIO 1.8 (0.9-1.1); Prothrombin Time 20.7 SEC (9.9-13.0)
[2021-01-21] MEDS: Metoprolol Succinate ER 25 MG TAB.ER.24H PO (08:13)
[2021-01-21] MEDS: HaloperidoL 5 MG TABLET 2.5 MG PO ×3 (08:13→20:03)
[2021-01-21] MEDS: Memantine HCl 10 MG TABLET PO ×2 (08:14→20:03)
[2021-01-21] MEDS: Sertraline HCL 25 MG TABLET PO (08:14)
--- NOTE | 2021-01-21 08:55 | PC.NURSE ---
Skin assessment completed today. Patient has a skin tear on left forearm- Cleansed and Xeroform applied covered with foam dressing. No ther skin issues noted at this time.
[2021-01-21 09:50] VITALS: BP 96/51; PULSE 83; RESP 16; TEMP 36.6; O2SAT 98
--- NOTE | 2021-01-21 14:40 | HO.PSYCHPN ---
Subjective Subjective Date of Service: 01/21/21 Reason For Visit: Unspecified Depressive Disorder Subjective Notes: Conditional Voluntary Interim History: The nursing staff reports that the patient has not been combative at all. There were no episodes of auditory hallucinations, his complaint with treatment. Even so, he needs assistance for his ADL and gait. Haloperidol was lowered to 2.5 mg p.o. t.i.d. to avoid over-sedation. On interview, the patient looked confused he does not know why he is here. Medication Compliance: Yes Side effects from medications: No Attending Groups: No Review of Systems Acute medical concerns: No Medical Review of Systems: unchanged Mental Status Exam Mental Status Exam Patient Appearance: Well Grooomed Patient Orientation: Person Level of Consciousness: Awake Patient Behavior: Appropriate Mood Description: Calm Affect Description: Blunted Patient Cognition Impaired: Yes Ability to Follow Directions: Fair Speech Pattern: Clear Hallucinations: None Delusions: Not Present Thought Process: Slowed Thinking Thought Content: positive for Circumstantial, positive for Poverty of Content and positive for Thought Blocking Judgement: Poor Diagnostics Vital Signs (24Hr): Vital Signs - 24 hr 01/20/21 20:25 01/21/21 09:50 Temperature 97.6 F 97.8 F Pulse Rate 74 83 Respiratory Rate 16 16 Blood Pressure 105/54 L 96/51 L Pulse Oximetry 98 98 Body Mass Index 29.2 Labs Results: 01/14/21 06:25 01/14/21 06:25 Labs: Laboratory Results - last 48 hr 01/20/21 01/21/21 06:12 07:45 PT 19.6 H D 20.7 H INR 1.7 H 1.8 H Imaging Radiology Impressions: ITS Impressions Head CT 01/13/21 05:50 IMPRESSION: No acute intracranial pathology. Lumbar Spine X-Ray 01/13/21 14:31 IMPRESSION: Mild to moderate thoracolumbar levoscoliosis and multilevel degenerative changes including L4-5 grade 1 anterolisthesis without overt acute abnormality. Medications Medications Current Medications Generic Name Dose Route Start Last Admin Trade Name Freq PRN Reason Stop Dose Admin Acetaminophen 650 mg 01/06/21 14:48 01/21/21 01:19 Acetaminophen 325 Mg Tablet PO 650 mg Q6H PRN Administration Headache/Pain Mild Scale (1-3) Al Hydroxide/Mg Hydroxide 30 ml 01/06/21 14:48 01/07/21 22:02 Magnesium Hydrox/Alum Hydrox 30 Ml Oral.Susp PO 30 ml Q6H PRN Administration Heartburn/Nausea Furosemide 20 mg 01/08/21 09:00 01/20/21 08:36 Furosemide 20 Mg Tablet PO 20 mg Q48H MICAELA Administration Protocol Haloperidol 2.5 mg 01/18/21 15:00 01/21/21 08:13 Haloperidol 5 Mg Tablet PO 2.5 mg TID MICAELA Administration Magnesium Hydroxide 30 ml 01/06/21 14:48 Milk Of Magnesia 30 Ml Oral.Susp PO DAILY PRN Constipation Memantine 10 mg 01/07/21 21:00 01/21/21 08:14 Memantine Hcl 10 Mg Tablet PO 10 mg BID MICAELA Administration Metoprolol Succinate 25 mg 01/08/21 09:00 01/21/21 08:13 Metoprolol Succinate Er 25 Mg Tab.Er.24h PO 25 mg DAILY MICAELA Administration Protocol Mirtazapine 7.5 mg 01/12/21 21:00 01/20/21 20:02 Mirtazapine 7.5 Mg Tablet PO 7.5 mg BEDTIME MICAELA Administration Propafenone HCl 150 mg 01/07/21 21:00 01/21/21 08:14 Propafenone Hcl 150 Mg Tablet PO 150 mg BID MICAELA Administration Sertraline HCl 25 mg 01/07/21 20:15 01/21/21 08:14 Sertraline Hcl 25 Mg Tablet PO 25 mg DAILY MICAELA Administration Trazodone HCl 50 mg 01/06/21 14:48 01/16/21 20:46 Trazodone Hcl 50 Mg Tablet PO 50 mg BEDTIME PRN Administration Insomnia Trazodone HCl 25 mg 01/15/21 15:00 01/20/21 16:42 Trazodone Hcl 25 Mg Halftab PO 25 mg DAILY@1700 MICAELA Administration Warfarin Sodium 6 mg 01/19/21 18:00 01/20/21 17:17 Warfarin Sodium 6 Mg Tablet PO 6 mg DAILY@1800 MICAELA Administration Allergies Allergies Allergy/AdvReac Type Severity Reaction Status Date / Time No Known Allergies Allergy Verified 01/06/21 14:48 Assessment & Plan Assessment & Plan (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 He was admitted due to the presence of psychotic symptoms without a clear stressor. Historically, the patient has never been psychotic and he did not have any prior psychiatric history. As of 01/19- pt with much less behavioral disturbances, sleep has significantly improved, underlying neurocognitive disorder, pt not oriented to place, situation, month, year. ambulating with 1:1 due to unsteady gait, which expected to improved as medications are further adjusted. Continue per primary treatment team Plan 2. Continue Haldol 5 mg p.o. t.i.d. Patient has had a number of falls he is being monitored rapid decline unclear etiology Referral to mendez Greater than 50% of the session was spent on counseling and/or coordination of care Reason for contiued inpatient stay Substantial Risk for: inability to function, rapid decompensation and med/psych decompensation
[2021-01-21] MEDS: traZODone HCL 25 MG HALFTAB PO (15:45)
[2021-01-21] MEDS: Warfarin Sodium 6 MG TABLET PO (16:59)
[2021-01-21] MEDS: Mirtazapine 7.5 MG TABLET PO (20:03)
[2021-01-21 20:27] VITALS: BP 116/59; PULSE 68; RESP 18; TEMP 36.6; O2SAT 97
[2021-01-22 07:01] LABS: INTERNATIONAL NORM RATIO 1.8 (0.9-1.1); Prothrombin Time 21.1 SEC (9.9-13.0)
[2021-01-22 08:00] VITALS: BMI 29.5
[2021-01-22 08:23] VITALS: BP 106/50; PULSE 43; RESP 16; O2SAT 97
[2021-01-22] MEDS: HaloperidoL 5 MG TABLET 2.5 MG PO ×3 (08:30→20:06)
[2021-01-22] MEDS: Memantine HCl 10 MG TABLET PO ×2 (08:30→20:06)
[2021-01-22] MEDS: Sertraline HCL 25 MG TABLET PO (08:30)
[2021-01-22 11:53] VITALS: BP 106/50; PULSE 43
--- NOTE | 2021-01-22 16:27 | P.PNPSI_ITS ---
Subjective Subjective Date of Service: 01/22/21 Reason For Visit: Unspecified Depressive Disorder Interim History: Pt pleasant on approach. Pt reports friend came to visit him. He has not had behavioral outbursts, sleep much improved, gait less unsteady with decrease haldol. However, evident severe memory problems in that he is not oriented to place, situation, month or year. Medication Compliance: Yes Side effects from medications: No Attending Groups: Intermittent Review of Systems Review of Systems Yes Unobtainable due to mental status Mental Status Exam Mental Status Exam Narrative: Appearance: casually groomed, good hygiene in NAD Behavior:cooperative psychomotor: no agitation or agitation noted Speech: mostly clear, some expressive aphasia noted, spontaneous Thought process:poverty of thought Thought content:no overt psychosis Mood: good Affect: congruent SI: none HI:none VH/AH:does not appear internally preoccupied as before Delusions:none Insight/judgment:impaired x 2. Memory/cog: alert, not oriented to place, months, date nor situation, underlying neurocognitive disorder. Diagnostics Vital Signs (24Hr): Vital Signs - 24 hr 01/21/21 20:27 01/22/21 08:23 01/22/21 11:53 Temperature 98 F Pulse Rate 68 43 L 43 L Respiratory Rate 18 16 Blood Pressure 116/59 L 106/50 L 106/50 L Pulse Oximetry 97 97 Body Mass Index 29.5 Labs Results: 01/14/21 06:25 01/14/21 06:25 Labs: Laboratory Results - last 48 hr 01/21/21 01/22/21 07:45 06:24 PT 20.7 H 21.1 H INR 1.8 H 1.8 H Imaging Radiology Impressions: ITS Impressions Head CT 01/13/21 05:50 IMPRESSION: No acute intracranial pathology. Lumbar Spine X-Ray 01/13/21 14:31 IMPRESSION: Mild to moderate thoracolumbar levoscoliosis and multilevel degenerative changes including L4-5 grade 1 anterolisthesis without overt acute abnormality. Medications Medications Current Medications Generic Name Dose Route Start Last Admin Trade Name Freq PRN Reason Stop Dose Admin Acetaminophen 650 mg 01/06/21 14:48 01/21/21 01:19 Acetaminophen 325 Mg Tablet PO 650 mg Q6H PRN Administration Headache/Pain Mild Scale (1-3) Al Hydroxide/Mg Hydroxide 30 ml 01/06/21 14:48 01/07/21 22:02 Magnesium Hydrox/Alum Hydrox 30 Ml Oral.Susp PO 30 ml Q6H PRN Administration Heartburn/Nausea Furosemide 20 mg 01/08/21 09:00 01/22/21 11:53 Furosemide 20 Mg Tablet PO Not Given Q48H [facility] Protocol Haloperidol 2.5 mg 01/18/21 15:00 01/22/21 14:41 Haloperidol 5 Mg Tablet PO 2.5 mg TID MICAELA Administration Magnesium Hydroxide 30 ml 01/06/21 14:48 Milk Of Magnesia 30 Ml Oral.Susp PO DAILY PRN Constipation Memantine 10 mg 01/07/21 21:00 01/22/21 08:30 Memantine Hcl 10 Mg Tablet PO 10 mg BID MICAELA Administration Metoprolol Succinate 25 mg 01/08/21 09:00 01/22/21 11:53 Metoprolol Succinate Er 25 Mg Tab.Er.24h PO Not Given DAILY MICAELA Protocol Mirtazapine 7.5 mg 01/12/21 21:00 01/21/21 20:03 Mirtazapine 7.5 Mg Tablet PO 7.5 mg BEDTIME MICAELA Administration Propafenone HCl 150 mg 01/07/21 21:00 01/22/21 08:31 Propafenone Hcl 150 Mg Tablet PO 150 mg BID MICAELA Administration Sertraline HCl 25 mg 01/07/21 20:15 01/22/21 08:30 Sertraline Hcl 25 Mg Tablet PO 25 mg DAILY MICAELA Administration Trazodone HCl 50 mg 01/06/21 14:48 01/16/21 20:46 Trazodone Hcl 50 Mg Tablet PO 50 mg BEDTIME PRN Administration Insomnia Trazodone HCl 25 mg 01/15/21 15:00 01/21/21 15:45 Trazodone Hcl 25 Mg Halftab PO 25 mg DAILY@1700 [facility] Administration Warfarin Sodium 5 mg 01/22/21 18:00 Warfarin Sodium 5 Mg Tablet PO DAILY@1800 [facility] Warfarin Sodium 2 mg 01/22/21 18:00 Warfarin Sodium 2 Mg Tablet PO DAILY@1800 [facility] Allergies Allergies Allergy/AdvReac Type Severity Reaction Status Date / Time No Known Allergies Allergy Verified 01/06/21 14:48 Assessment & Plan Assessment & Plan (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 He was admitted due to the presence of psychotic symptoms without a clear stres sor. Historically, the patient has never been psychotic and he did not have any prior psychiatric history. As of 01/19- pt with much less behavioral disturbances, sleep has significantly improved, underlying neurocognitive disorder, pt not oriented to place, situation, month, year. ambulating with 1:1 due to unsteady gait, which expected to improved as medications are further adjusted. Continue per primary treatment team Plan 2. Continue Haldol 5 mg p.o. t.i.d. Patient has had a number of falls he is being monitored rapid decline unclear etiology Referral to [facility] Greater than 50% of the session was spent on counseling and/or coordination of care Reason for contiued inpatient stay Substantial Risk for: inability to function
[2021-01-22] MEDS: Warfarin Sodium 5 MG TABLET PO (17:49)
[2021-01-22] MEDS: Warfarin Sodium 2 MG TABLET PO (17:50)
[2021-01-22] MEDS: traZODone HCL 25 MG HALFTAB PO (17:50)
[2021-01-22 18:00] VITALS: BP 105/51; PULSE 83; TEMP 36.6; O2SAT 96
[2021-01-22] MEDS: Mirtazapine 7.5 MG TABLET PO (20:06)
[2021-01-22 20:51] VITALS: BP 111/55; PULSE 80; RESP 18; TEMP 36.9; O2SAT 98
[2021-01-22] MEDS: traZODone HCL 50 MG TABLET PO (23:39)
[2021-01-23 07:38] LABS: INTERNATIONAL NORM RATIO 2.1 (0.9-1.1); Prothrombin Time 24.4 SEC (9.9-13.0)
[2021-01-23] MEDS: Sertraline HCL 25 MG TABLET PO (09:42)
[2021-01-23 09:43] VITALS: BP 125/58; PULSE 77
[2021-01-23] MEDS: Metoprolol Succinate ER 25 MG TAB.ER.24H PO (09:43)
[2021-01-23] MEDS: HaloperidoL 5 MG TABLET 2.5 MG PO ×3 (09:43→19:41)
[2021-01-23 09:45] VITALS: BP 125/58; PULSE 77; RESP 16; TEMP 36.5; O2SAT 96
[2021-01-23] MEDS: Memantine HCl 10 MG TABLET PO ×2 (09:45→19:43)
--- NOTE | 2021-01-23 15:07 | P.PNPSI_ITS ---
Subjective Subjective Date of Service: 01/23/21 Reason For Visit: Unspecified Depressive Disorder Subjective Notes: Conditional Voluntary Interim History: Nursing staff has reported that he is not responding to internal stimuli no and he is more pleasant. On interview he denies auditory hallucinations he feels that he is doing fine. On close interview, the patient is very confused he does not know where he is but he is pleasant. Medication Compliance: Yes Side effects from medications: No Attending Groups: No Review of Systems Acute medical concerns: No Medical Review of Systems: unchanged Mental Status Exam Mental Status Exam Patient Appearance: Well Grooomed Patient Orientation: Person Level of Consciousness: Awake Patient Behavior: Cooperative Mood Description: Withdrawn Affect Description: Constricted Patient Cognition Impaired: Yes Ability to Follow Directions: Good Speech Pattern: Clear Memory Description: Intact Hallucinations: None Delusions: Not Present Thought Process: Illogical Thought Content: positive for Circumstantial Judgement: Fair Diagnostics Vital Signs (24Hr): Vital Signs - 24 hr 01/22/21 18:00 01/22/21 20:51 01/23/21 09:43 Temperature 97.9 F 98.5 F Pulse Rate 83 80 77 Respiratory Rate 18 Blood Pressure 105/51 L 111/55 L 125/58 L Pulse Oximetry 96 98 01/23/21 09:45 Temperature 97.7 F Pulse Rate 77 Respiratory Rate 16 Blood Pressure 125/58 L Pulse Oximetry 96 Body Mass Index 29.5 Labs Results: 01/14/21 06:25 01/14/21 06:25 Labs: Laboratory Results - last 48 hr 01/22/21 01/23/21 06:24 07:22 PT 21.1 H 24.4 H INR 1.8 H 2.1 H Imaging Radiology Impressions: ITS Impressions Head CT 01/13/21 05:50 IMPRESSION: No acute intracranial pathology. Lumbar Spine X-Ray 01/13/21 14:31 IMPRESSION: Mild to moderate thoracolumbar levoscoliosis and multilevel degenerative changes including L4-5 grade 1 anterolisthesis without overt acute abnormality. Medications Medications Current Medications Generic Name Dose Route Start Last Admin Trade Name Freq PRN Reason Stop Dose Admin Acetaminophen 650 mg 01/06/21 14:48 01/21/21 01:19 Acetaminophen 325 Mg Tablet PO 650 mg Q6H PRN Administration Headache/Pain Mild Scale (1-3) Al Hydroxide/Mg Hydroxide 30 ml 01/06/21 14:48 01/07/21 22:02 Magnesium Hydrox/Alum Hydrox 30 Ml Oral.Susp PO 30 ml Q6H PRN Administration Heartburn/Nausea Furosemide 20 mg 01/08/21 09:00 01/22/21 11:53 Furosemide 20 Mg Tablet PO Not Given Q48H MICAELA Protocol Haloperidol 2.5 mg 01/18/21 15:00 01/23/21 14:58 Haloperidol 5 Mg Tablet PO 2.5 mg TID MICAELA Administration Magnesium Hydroxide 30 ml 01/06/21 14:48 Milk Of Magnesia 30 Ml Oral.Susp PO DAILY PRN Constipation Memantine 10 mg 01/07/21 21:00 01/23/21 09:45 Memantine Hcl 10 Mg Tablet PO 10 mg BID MICAELA Administration Metoprolol Succinate 25 mg 01/08/21 09:00 01/23/21 09:43 Metoprolol Succinate Er 25 Mg Tab.Er.24h PO 25 mg DAILY MICAELA Administration Protocol Mirtazapine 7.5 mg 01/12/21 21:00 01/22/21 20:06 Mirtazapine 7.5 Mg Tablet PO 7.5 mg BEDTIME MICAELA Administration Propafenone HCl 150 mg 01/07/21 21:00 01/23/21 09:45 Propafenone Hcl 150 Mg Tablet PO 150 mg BID MICAELA Administration Sertraline HCl 25 mg 01/07/21 20:15 01/23/21 09:42 Sertraline Hcl 25 Mg Tablet PO 25 mg DAILY MICAELA Administration Trazodone HCl 50 mg 01/06/21 14:48 01/22/21 23:39 Trazodone Hcl 50 Mg Tablet PO 50 mg BEDTIME PRN Administration Insomnia Trazodone HCl 25 mg 01/15/21 15:00 01/22/21 17:50 Trazodone Hcl 25 Mg Halftab PO 25 mg DAILY@1700 MICAELA Administration Warfarin Sodium 5 mg 01/22/21 18:00 01/22/21 17:49 Warfarin Sodium 5 Mg Tablet PO 5 mg DAILY@1800 MICAELA Administration Warfarin Sodium 2 mg 01/22/21 18:00 01/22/21 17:50 Warfarin Sodium 2 Mg Tablet PO 2 mg DAILY@1800 MICAELA Administration Allergies Allergies Allergy/AdvReac Type Severity Reaction Status Date / Time No Known Allergies Allergy Verified 01/06/21 14:48 Assessment & Plan Assessment & Plan (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 He was admitted due to the presence of psychotic symptoms without a clear stressor. Historically, the patient has never been psychotic and he did not have any prior psychiatric history. As of 01/19- pt with much less behavioral disturbances, sleep has significantly improved, underlying neurocognitive disorder, pt not oriented to place, situation, month, year. ambulating with 1:1 due to unsteady gait, which expected to improved as medications are further adjusted. Continue per primary treatment team Plan 2. Lower Haldol up to 2.5 mg p.o. t.i.d. Patient has had a number of falls he is being monitored rapid decline unclear et iology Referral to mendez Greater than 50% of the session was spent on counseling and/or coordination of care Reason for contiued inpatient stay Substantial Risk for: inability to function, stable for discharge and med/psych decompensation
[2021-01-23] MEDS: traZODone HCL 25 MG HALFTAB PO (17:00)
[2021-01-23] MEDS: Warfarin Sodium 2 MG TABLET PO (17:49)
[2021-01-23] MEDS: Warfarin Sodium 5 MG TABLET PO (17:50)
[2021-01-23 18:48] VITALS: BP 127/57; PULSE 79; RESP 18; TEMP 36.9; O2SAT 98
[2021-01-23] MEDS: Mirtazapine 7.5 MG TABLET PO (19:40)
[2021-01-23] MEDS: hydrOXYzine HCL 50 MG TABLET PO (19:41)
[2021-01-24 06:00] VITALS: BP 109/67; PULSE 80; TEMP 36.9; O2SAT 97
[2021-01-24 08:00] VITALS: BMI 29.3
[2021-01-24] MEDS: HaloperidoL 5 MG TABLET 2.5 MG PO ×3 (08:22→20:28)
[2021-01-24] MEDS: Memantine HCl 10 MG TABLET PO ×2 (08:23→20:28)
[2021-01-24] MEDS: Sertraline HCL 25 MG TABLET PO (08:23)
[2021-01-24 08:41] LABS: INTERNATIONAL NORM RATIO 2.4 (0.9-1.1); Prothrombin Time 27.9 SEC (9.9-13.0)
[2021-01-24] MEDS: Furosemide 20 MG TABLET PO (09:49)
[2021-01-24 09:50] VITALS: BP 109/67; PULSE 80
[2021-01-24] MEDS: Metoprolol Succinate ER 25 MG TAB.ER.24H PO (09:50)
--- NOTE | 2021-01-24 12:12 | HO.PSYCHPN ---
Subjective Subjective Date of Service: 01/25/21 Reason For Visit: Unspecified Depressive Disorder Interim History: Pt reports he is doing fine. He does not remember day before friend came to visit him. He is ambulating with walker, gait more steady. He denies SI/HI. Per nursing, no behavioral outburst. Pt much calmer and in better control in terms of behavior. However, significant memory/cognitive impairments are noted. Medication Compliance: Yes Side effects from medications: No Attending Groups: Intermittent Review of Systems Acute medical concerns: No Review of Systems Review of Systems Yes Unobtainable due to mental status Mental Status Exam Mental Status Exam Narrative: Appearance: casually groomed, good hygiene in NAD Behavior:cooperative psychomotor: no agitation or agitation noted Speech: mostly clear, some expressive aphasia noted, spontaneous Thought process:poverty of thought Thought content:no overt psychosis Mood: good Affect: congruent SI: none HI:none VH/AH:does not appear internally preoccupied as before Delusions:none Insight/judgment:impaired x 2. Memory/cog: alert, not oriented to place, months, date nor situation, underlying neurocognitive disorder. Diagnostics Vital Signs (24Hr): Vital Signs - 24 hr 01/24/21 20:41 01/25/21 06:00 01/25/21 08:15 Temperature 97.9 F 98.4 F Pulse Rate 66 80 80 Respiratory Rate 18 Blood Pressure 107/55 L 108/51 L 108/51 L Pulse Oximetry 99 96 Body Mass Index 29.3 Labs Results: 01/14/21 06:25 01/14/21 06:25 Labs: Laboratory Results - last 48 hr 01/24/21 01/25/21 08:28 07:40 PT 27.9 H 32.9 H INR 2.4 H 2.8 H Imaging Radiology Impressions: ITS Impressions Head CT 01/13/21 05:50 IMPRESSION: No acute intracranial pathology. Lumbar Spine X-Ray 01/13/21 14:31 IMPRESSION: Mild to moderate thoracolumbar levoscoliosis and multilevel degenerative changes including L4-5 grade 1 anterolisthesis without overt acute abnormality. Medications Medications Current Medications Generic Name Dose Route Start Last Admin Trade Name Freq PRN Reason Stop Dose Admin Acetaminophen 650 mg 01/06/21 14:48 01/21/21 01:19 Acetaminophen 325 Mg Tablet PO 650 mg Q6H PRN Administration Headache/Pain Mild Scale (1-3) Al Hydroxide/Mg Hydroxide 30 ml 01/06/21 14:48 01/07/21 22:02 Magnesium Hydrox/Alum Hydrox 30 Ml Oral.Susp PO 30 ml Q6H PRN Administration Heartburn/Nausea Furosemide 20 mg 01/08/21 09:00 01/24/21 09:49 Furosemide 20 Mg Tablet PO 20 mg Q48H MICAELA Administration Protocol Haloperidol 2.5 mg 01/18/21 15:00 01/25/21 08:14 Haloperidol 5 Mg Tablet PO 2.5 mg TID MICAELA Administration Hydroxyzine HCl 50 mg 01/23/21 21:00 01/24/21 20:28 Hydroxyzine Hcl 50 Mg Tablet PO 50 mg BEDTIME MICAELA Administration Magnesium Hydroxide 30 ml 01/06/21 14:48 Milk Of Magnesia 30 Ml Oral.Susp PO DAILY PRN Constipation Memantine 10 mg 01/07/21 21:00 01/25/21 08:14 Memantine Hcl 10 Mg Tablet PO 10 mg BID MICAELA Administration Metoprolol Succinate 25 mg 01/08/21 09:00 01/25/21 08:15 Metoprolol Succinate Er 25 Mg Tab.Er.24h PO 25 mg DAILY MICAELA Administration Protocol Mirtazapine 7.5 mg 01/12/21 21:00 01/24/21 20:28 Mirtazapine 7.5 Mg Tablet PO 7.5 mg BEDTIME MICAELA Administration Propafenone HCl 150 mg 01/07/21 21:00 01/25/21 08:14 Propafenone Hcl 150 Mg Tablet PO 150 mg BID MICAELA Administration Sertraline HCl 25 mg 01/07/21 20:15 01/25/21 08:14 Sertraline Hcl 25 Mg Tablet PO 25 mg DAILY MICAELA Administration Trazodone HCl 50 mg 01/06/21 14:48 01/22/21 23:39 Trazodone Hcl 50 Mg Tablet PO 50 mg BEDTIME PRN Administration Insomnia Trazodone HCl 25 mg 01/15/21 15:00 01/24/21 17:18 Trazodone Hcl 25 Mg Halftab PO 25 mg DAILY@1700 MICAELA Administration Warfarin Sodium 5 mg 01/22/21 18:00 01/24/21 18:14 Warfarin Sodium 5 Mg Tablet PO 5 mg DAILY@1800 MICAELA Administration Warfarin Sodium 2 mg 01/22/21 18:00 01/24/21 18:14 Warfarin Sodium 2 Mg Tablet PO 2 mg DAILY@1800 MICAELA Administration Allergies Allergies Allergy/AdvReac Type Severity Reaction Status Date / Time No Known Allergies Allergy Verified 01/06/21 14:48 Assessment & Plan Assessment & Plan (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 He was admitted due to the presence of psychotic symptoms without a clear stressor. Historically, the patient has never been psychotic and he did not have any prior psychiatric history. As of 01/19- pt with much less behavioral disturbances, sleep has significantly improved, underlying neurocognitive disorder, pt not oriented to place, situation, month, year. ambulating with 1:1 due to unsteady gait, which expected to improved as medications are further adjusted. Continue per primary treatment team Plan 2. Lower Haldol up to 2.5 mg p.o. t.i.d. Patient has had a number of falls he is being monitored rapid decline unclear etiology Referral to SNF Greater than 50% of the session was spent on counseling and/or coordination of care Reason for contiued inpatient stay Substantial Risk for: inability to function
[2021-01-24] MEDS: traZODone HCL 25 MG HALFTAB PO (17:18)
[2021-01-24] MEDS: Warfarin Sodium 2 MG TABLET PO (18:14)
[2021-01-24] MEDS: Warfarin Sodium 5 MG TABLET PO (18:14)
[2021-01-24] MEDS: Mirtazapine 7.5 MG TABLET PO (20:28)
[2021-01-24] MEDS: hydrOXYzine HCL 50 MG TABLET PO (20:28)
[2021-01-24 20:41] VITALS: BP 107/55; PULSE 66; RESP 18; TEMP 36.6; O2SAT 99
[2021-01-25 02:08] VITALS: BMI 29.1
[2021-01-25 06:00] VITALS: BP 108/51; PULSE 80; TEMP 36.9; O2SAT 96
[2021-01-25 08:00] VITALS: BMI 29.3
[2021-01-25 08:01] LABS: INTERNATIONAL NORM RATIO 2.8 (0.9-1.1); Prothrombin Time 32.9 SEC (9.9-13.0)
[2021-01-25] MEDS: Sertraline HCL 25 MG TABLET PO (08:14)
[2021-01-25] MEDS: HaloperidoL 5 MG TABLET 2.5 MG PO ×3 (08:14→22:12)
[2021-01-25] MEDS: Memantine HCl 10 MG TABLET PO ×2 (08:14→22:12)
[2021-01-25 08:15] VITALS: BP 108/51; PULSE 80
[2021-01-25] MEDS: Metoprolol Succinate ER 25 MG TAB.ER.24H PO (08:15)
--- NOTE | 2021-01-25 08:39 | HO.PSYCHPN ---
Subjective Subjective Date of Service: 01/27/21 Reason For Visit: Unspecified Depressive Disorder Interim History: Pt reports he is doing fine. He does not remember day before friend came to visit him. He is ambulating with walker, gait more steady. He denies SI/HI. Per nursing, no behavioral outburst. Pt much calmer and in better control in terms of behavior. However, significant memory/cognitive impairments are noted. Review of Systems Review of Systems Yes Unobtainable due to mental status Mental Status Exam Mental Status Exam Narrative: Appearance: casually groomed, good hygiene in NAD Behavior:cooperative psychomotor: no agitation or agitation noted Speech: mostly clear, some expressive aphasia noted, spontaneous Thought process:poverty of thought Thought content:no overt psychosis Mood: good Affect: congruent SI: none HI:none VH/AH:does not appear internally preoccupied as before Delusions:none Insight/judgment:impaired x 2. Memory/cog: alert, not oriented to place, months, date nor situation, underlying neurocognitive disorder. Diagnostics Vital Signs (24Hr): Vital Signs - 24 hr 01/26/21 18:00 Temperature 97.6 F Pulse Rate 69 Respiratory Rate 18 Blood Pressure 122/57 L Pulse Oximetry 98 Body Mass Index 29.0 Labs Results: 01/14/21 06:25 01/14/21 06:25 Labs: Laboratory Results - last 48 hr 01/26/21 01/27/21 06:56 07:06 PT 42.6 H D 34.1 H INR 3.6 H 2.9 H Imaging Radiology Impressions: ITS Impressions Head CT 01/13/21 05:50 IMPRESSION: No acute intracranial pathology. Lumbar Spine X-Ray 01/13/21 14:31 IMPRESSION: Mild to moderate thoracolumbar levoscoliosis and multilevel degenerative changes including L4-5 grade 1 anterolisthesis without overt acute abnormality. Medications Medications Current Medications Generic Name Dose Route Start Last Admin Trade Name Freq PRN Reason Stop Dose Admin Acetaminophen 650 mg 01/06/21 14:48 01/21/21 01:19 Acetaminophen 325 Mg Tablet PO 650 mg Q6H PRN Administration Headache/Pain Mild Scale (1-3) Al Hydroxide/Mg Hydroxide 30 ml 01/06/21 14:48 01/07/21 22:02 Magnesium Hydrox/Alum Hydrox 30 Ml Oral.Susp PO 30 ml Q6H PRN Administration Heartburn/Nausea Furosemide 20 mg 01/08/21 09:00 01/26/21 08:15 Furosemide 20 Mg Tablet PO 20 mg Q48H MICAELA Administration Protocol Haloperidol 2.5 mg 01/18/21 15:00 01/26/21 19:51 Haloperidol 5 Mg Tablet PO 2.5 mg TID MICAELA Administration Hydroxyzine HCl 50 mg 01/23/21 21:00 01/26/21 19:54 Hydroxyzine Hcl 50 Mg Tablet PO 50 mg BEDTIME MICAELA Administration Magnesium Hydroxide 30 ml 01/06/21 14:48 Milk Of Magnesia 30 Ml Oral.Susp PO DAILY PRN Constipation Memantine 10 mg 01/07/21 21:00 01/26/21 19:52 Memantine Hcl 10 Mg Tablet PO 10 mg BID MICAELA Administration Metoprolol Succinate 25 mg 01/08/21 09:00 01/26/21 08:15 Metoprolol Succinate Er 25 Mg Tab.Er.24h PO 25 mg DAILY MICAELA Administration Protocol Mirtazapine 7.5 mg 01/12/21 21:00 01/26/21 19:51 Mirtazapine 7.5 Mg Tablet PO 7.5 mg BEDTIME MICAELA Administration Propafenone HCl 150 mg 01/07/21 21:00 01/26/21 19:51 Propafenone Hcl 150 Mg Tablet PO 150 mg BID MICAELA Administration Sertraline HCl 25 mg 01/07/21 20:15 01/26/21 08:15 Sertraline Hcl 25 Mg Tablet PO 25 mg DAILY MICAELA Administration Trazodone HCl 50 mg 01/06/21 14:48 01/22/21 23:39 Trazodone Hcl 50 Mg Tablet PO 50 mg BEDTIME PRN Administration Insomnia Trazodone HCl 25 mg 01/15/21 15:00 01/26/21 16:36 Trazodone Hcl 25 Mg Halftab PO 25 mg DAILY@1700 MICAELA Administration Warfarin Sodium 5 mg 01/22/21 18:00 01/25/21 17:30 Warfarin Sodium 5 Mg Tablet PO 5 mg DAILY@1800 MICAELA Administration Warfarin Sodium 2 mg 01/22/21 18:00 01/25/21 17:30 Warfarin Sodium 2 Mg Tablet PO 2 mg DAILY@1800 MICAELA Administration Allergies Allergies Allergy/AdvReac Type Severity Reaction Status Date / Time No Known Allergies Allergy Verified 01/06/21 14:48 Assessment & Plan Assessment & Plan (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 He was admitted due to the presence of psychotic symptoms without a clear stressor. Historically, the patient has never been psychotic and he did not have any prior psychiatric history. As of 01/19- pt with much less behavioral disturbances, sleep has significantly improved, underlying neurocognitive disorder, pt not oriented to place, situation, month, year. ambulating with 1:1 due to unsteady gait, which expected to improved as medications are further adjusted. Continue per primary treatment team Plan 2. Lower Haldol up to 2.5 mg p.o. t.i.d. Patient has had a number of falls he is being monitored rapid decline unclear etiology Referral to SNF Greater than 50% of the session was spent on counseling and/or coordination of care Reason for contiued inpatient stay Substantial Risk for: inability to function
[2021-01-25] MEDS: Warfarin Sodium 2 MG TABLET PO (17:30)
[2021-01-25] MEDS: Warfarin Sodium 5 MG TABLET PO (17:30)
[2021-01-25] MEDS: traZODone HCL 25 MG HALFTAB PO (17:30)
[2021-01-25 18:00] VITALS: BP 110/56; PULSE 72; RESP 16; TEMP 36.4; O2SAT 98
[2021-01-25] MEDS: Mirtazapine 7.5 MG TABLET PO (22:11)
[2021-01-25] MEDS: hydrOXYzine HCL 50 MG TABLET PO (22:11)
[2021-01-26 06:00] VITALS: BP 103/53; PULSE 83; TEMP 36.5; O2SAT 98
[2021-01-26 07:12] LABS: INTERNATIONAL NORM RATIO 3.6 (0.9-1.1); Prothrombin Time 42.6 SEC (9.9-13.0)
[2021-01-26 08:00] VITALS: BMI 29.0
[2021-01-26] MEDS: Memantine HCl 10 MG TABLET PO ×2 (08:15→19:52)
[2021-01-26] MEDS: Furosemide 20 MG TABLET PO (08:15)
[2021-01-26] MEDS: Sertraline HCL 25 MG TABLET PO (08:15)
[2021-01-26] MEDS: Metoprolol Succinate ER 25 MG TAB.ER.24H PO (08:15)
[2021-01-26] MEDS: HaloperidoL 5 MG TABLET 2.5 MG PO ×3 (08:15→19:51)
[2021-01-26] MEDS: traZODone HCL 25 MG HALFTAB PO (16:36)
[2021-01-26 18:00] VITALS: BP 122/57; PULSE 69; RESP 18; TEMP 36.4; O2SAT 98
[2021-01-26] MEDS: Mirtazapine 7.5 MG TABLET PO (19:51)
[2021-01-26] MEDS: hydrOXYzine HCL 50 MG TABLET PO (19:54)
[2021-01-27 06:00] VITALS: BP 99/51; PULSE 69; TEMP 36.6; O2SAT 97
[2021-01-27 07:31] LABS: INTERNATIONAL NORM RATIO 2.9 (0.9-1.1); Prothrombin Time 34.1 SEC (9.9-13.0)
[2021-01-27 08:00] VITALS: BMI 29.1
[2021-01-27] MEDS: Memantine HCl 10 MG TABLET PO ×2 (09:09→20:29)
[2021-01-27] MEDS: Sertraline HCL 25 MG TABLET PO (09:09)
[2021-01-27 09:33] VITALS: BP 99/54; PULSE 69
[2021-01-27] MEDS: Metoprolol Succinate ER 25 MG TAB.ER.24H PO (09:33)
--- NOTE | 2021-01-27 11:29 | HO.PSYCHPN ---
Subjective Subjective Date of Service: 01/27/21 Reason For Visit: Unspecified Depressive Disorder Subjective Notes: Conditional Voluntary Interim History: The nursing staff reported the patient has not shown any psychotic symptoms, he looks better and he is getting out of the bed by himself. He also looks more cooperative and pleasant. On interview, the patient is very confused but no evidence of psychotic symptoms. We discussed with the team with the possibility to lower haloperidol from 7.5 mg p.o. daily to 5 mg a day. Today on rounds, we discussed that the change of mental status of the patient was pretty abrupt and C's he is on anticoagulation he is at higher risk of vascular event. We will order today CT scan head without contrast and we will Lower Haldol Medication Compliance: Yes Side effects from medications: No Review of Systems Acute medical concerns: No Medical Review of Systems: unchanged Mental Status Exam Mental Status Exam Patient Appearance: Well Grooomed Patient Orientation: Person Level of Consciousness: Awake Patient Behavior: Cooperative Mood Description: Constricted Affect Description: Calm Patient Cognition Impaired: Yes Ability to Follow Directions: Good Speech Pattern: Clear Hallucinations: None Delusions: Not Present Thought Process: Distracted and Evasive Thought Content: positive for Poverty of Content and positive for Loose Associations Judgement: Poor Diagnostics Vital Signs (24Hr): Vital Signs - 24 hr 01/26/21 18:00 01/27/21 06:00 01/27/21 09:33 Temperature 97.6 F 97.9 F Pulse Rate 69 69 69 Respiratory Rate 18 Blood Pressure 122/57 L 99/51 L 99/54 L Pulse Oximetry 98 97 Body Mass Index 29.1 Labs Results: 01/14/21 06:25 01/14/21 06:25 Labs: Laboratory Results - last 48 hr 01/26/21 01/27/21 06:56 07:06 PT 42.6 H D 34.1 H INR 3.6 H 2.9 H Imaging Radiology Impressions: ITS Impressions Head CT 01/13/21 05:50 IMPRESSION: No acute intracranial pathology. Lumbar Spine X-Ray 01/13/21 14:31 IMPRESSION: Mild to moderate thoracolumbar levoscoliosis and multilevel degenerative changes including L4-5 grade 1 anterolisthesis without overt acute abnormality. Medications Medications Current Medications Generic Name Dose Route Start Last Admin Trade Name Freq PRN Reason Stop Dose Admin Acetaminophen 650 mg 01/06/21 14:48 09/01/21 01:19 Acetaminophen 325 Mg Tablet PO 650 mg Q6H PRN Administration Headache/Pain Mild Scale (1-3) Al Hydroxide/Mg Hydroxide 30 ml 01/06/21 14:48 01/07/21 22:02 Magnesium Hydrox/Alum Hydrox 30 Ml Oral.Susp PO 30 ml Q6H PRN Administration Heartburn/Nausea Furosemide 20 mg 01/08/21 09:00 01/26/21 08:15 Furosemide 20 Mg Tablet PO 20 mg Q48H MICAELA Administration Protocol Haloperidol 2.5 mg 01/27/21 17:00 Haloperidol 0.5 Mg Tablet PO DAILY@1700 MICAELA Haloperidol 2.5 mg 01/27/21 21:00 Haloperidol 0.5 Mg Tablet PO BEDTIME MICAELA Hydroxyzine HCl 50 mg 01/23/21 21:00 01/26/21 19:54 Hydroxyzine Hcl 50 Mg Tablet PO 50 mg BEDTIME MICAELA Administration Magnesium Hydroxide 30 ml 01/06/21 14:48 Milk Of Magnesia 30 Ml Oral.Susp PO DAILY PRN Constipation Memantine 10 mg 01/07/21 21:00 01/27/21 09:09 Memantine Hcl 10 Mg Tablet PO 10 mg BID MICAELA Administration Metoprolol Succinate 25 mg 01/08/21 09:00 01/27/21 09:33 Metoprolol Succinate Er 25 Mg Tab.Er.24h PO 25 mg DAILY MICAELA Administration Protocol Mirtazapine 7.5 mg 01/12/21 21:00 01/26/21 19:51 Mirtazapine 7.5 Mg Tablet PO 7.5 mg BEDTIME MICAELA Administration Propafenone HCl 150 mg 01/07/21 21:00 01/27/21 09:09 Propafenone Hcl 150 Mg Tablet PO 150 mg BID MICAELA Administration Sertraline HCl 25 mg 01/07/21 20:15 01/27/21 09:09 Sertraline Hcl 25 Mg Tablet PO 25 mg DAILY MICAELA Administration Trazodone HCl 50 mg 01/06/21 14:48 01/22/21 23:39 Trazodone Hcl 50 Mg Tablet PO 50 mg BEDTIME PRN Administration Insomnia Trazodone HCl 25 mg 01/15/21 15:00 01/26/21 16:36 Trazodone Hcl 25 Mg Halftab PO 25 mg DAILY@1700 MICAELA Administration Warfarin Sodium 6 mg 01/27/21 18:00 Warfarin Sodium 6 Mg Tablet PO DAILY@1800 [facility] Allergies Allergies Allergy/AdvReac Type Severity Reaction Status Date / Time No Known Allergies Allergy Verified 01/06/21 14:48 Assessment & Plan Assessment & Plan (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 He was admitted due to the presence of psychotic symptoms without a clear stressor. Historically, the patient has never been psychotic and he did not have any prior psychiatric history. As of 01/19- pt with much less behavioral disturbances, sleep has significantly improved, underlying neurocognitive disorder, pt not oriented to place, situation, month, year. ambulating with 1:1 due to unsteady gait, which expected to improved as medications are further adjusted. Continue per primary treatment team Plan 2. Lower Haldol up to 2.5 mg p.o. t.i.d. Patient has had a number of falls he is being monitored rapid decline unclear etiology Referral to SNF 3. CT scan for today Greater than 50% of the session was spent on counseling and/or coordination of care Reason for contiued inpatient stay Substantial Risk for: harm to self, harm to others, inability to function, rapid decompensation and med/psych decompensation
[2021-01-27] MEDS: HaloperidoL 5 MG TABLET PO (15:07)
[2021-01-27] MEDS: traZODone HCL 25 MG HALFTAB PO (17:17)
[2021-01-27] MEDS: Warfarin Sodium 6 MG TABLET PO (17:18)
[2021-01-27 17:42] VITALS: BP 121/59; PULSE 66; RESP 18; TEMP 36.9; O2SAT 97
[2021-01-27] MEDS: hydrOXYzine HCL 50 MG TABLET PO (20:29)
[2021-01-27] MEDS: Mirtazapine 7.5 MG TABLET PO (20:30)
[2021-01-27] MEDS: HaloperidoL 0.5 MG TABLET 2.5 MG PO (20:30)
[2021-01-28 06:00] VITALS: BP 129/56; PULSE 71; RESP 16; TEMP 36.7; O2SAT 97
[2021-01-28 06:44] VITALS: BMI 29.0
[2021-01-28 07:17] LABS: INTERNATIONAL NORM RATIO 2.1 (0.9-1.1); Prothrombin Time 24.6 SEC (9.9-13.0)
[2021-01-28 08:28] VITALS: BP 133/70; PULSE 70; RESP 16; TEMP 36.7; O2SAT 97
[2021-01-28] MEDS: HaloperidoL 0.5 MG TABLET 2.5 MG PO ×3 (11:54→21:43)
[2021-01-28] MEDS: Furosemide 20 MG TABLET PO (11:54)
[2021-01-28 11:55] VITALS: BP 133/70; PULSE 70
[2021-01-28] MEDS: Metoprolol Succinate ER 25 MG TAB.ER.24H PO (11:55)
[2021-01-28] MEDS: Memantine HCl 10 MG TABLET PO ×2 (11:55→21:45)
[2021-01-28] MEDS: Sertraline HCL 25 MG TABLET PO (11:56)
--- NOTE | 2021-01-28 15:06 | HO.PSYCHPN ---
Subjective Subjective Date of Service: 01/29/21 Reason For Visit: Unspecified Depressive Disorder Subjective Notes: Conditional Voluntary Interim History: The patient was paraonid and agitated at times, he has refused medications AM and PM. Medication Compliance: Yes Side effects from medications: No Attending Groups: No Review of Systems Acute medical concerns: No Medical Review of Systems: unchanged Mental Status Exam Mental Status Exam Patient Appearance: Well Grooomed Patient Orientation: Person Level of Consciousness: Awake Patient Behavior: Guarded, Resistive to Care and Uncooperative Mood Description: Withdrawn Affect Description: Labile Patient Cognition Impaired: Yes Ability to Follow Directions: Poor Speech Pattern: Clear Delusions: Paranoid Ideation Thought Process: Illogical Thought Content: positive for Perseveration and positive for Poverty of Content Judgement: Poor Diagnostics Vital Signs (24Hr): Vital Signs - 24 hr 01/27/21 17:42 01/28/21 06:00 01/28/21 08:28 Temperature 98.5 F 98.1 F 98.0 F Pulse Rate 66 71 70 Respiratory Rate 18 16 16 Blood Pressure 121/59 L 129/56 L 133/70 Pulse Oximetry 97 97 97 01/28/21 11:55 Temperature Pulse Rate 70 Respiratory Rate Blood Pressure 133/70 Pulse Oximetry Body Mass Index 29.0 Labs Results: 01/14/21 06:25 01/14/21 06:25 Labs: Laboratory Results - last 48 hr 01/27/21 01/28/21 07:06 06:45 PT 34.1 H 24.6 H D INR 2.9 H 2.1 H Imaging Radiology Impressions: ITS Impressions Head CT 01/13/21 05:50 IMPRESSION: No acute intracranial pathology. Lumbar Spine X-Ray 01/13/21 14:31 IMPRESSION: Mild to moderate thoracolumbar levoscoliosis and multilevel degenerative changes including L4-5 grade 1 anterolisthesis without overt acute abnormality. Head CT 01/27/21 15:01 IMPRESSION: No acute findings. Mild nonspecific periventricular white matter disease and generalized atrophy. Medications Medications Current Medications Generic Name Dose Route Start Last Admin Trade Name Freq PRN Reason Stop Dose Admin Acetaminophen 650 mg 01/06/21 14:48 01/21/21 01:19 Acetaminophen 325 Mg Tablet PO 650 mg Q6H PRN Administration Headache/Pain Mild Scale (1-3) Al Hydroxide/Mg Hydroxide 30 ml 01/06/21 14:48 01/07/21 22:02 Magnesium Hydrox/Alum Hydrox 30 Ml Oral.Susp PO 30 ml Q6H PRN Administration Heartburn/Nausea Furosemide 20 mg 01/08/21 09:00 01/28/21 11:54 Furosemide 20 Mg Tablet PO 20 mg Q48H MICAELA Administration Protocol Haloperidol 5 mg 01/27/21 14:56 01/27/21 15:07 Haloperidol 5 Mg Tablet PO 5 mg TID PRN Administration Psychosis Haloperidol 2.5 mg 01/27/21 21:00 01/28/21 11:54 Haloperidol 0.5 Mg Tablet PO 2.5 mg TID MICAELA Administration Hydroxyzine HCl 50 mg 01/23/21 21:00 01/27/21 20:29 Hydroxyzine Hcl 50 Mg Tablet PO 50 mg BEDTIME MICAELA Administration Magnesium Hydroxide 30 ml 01/06/21 14:48 Milk Of Magnesia 30 Ml Oral.Susp PO DAILY PRN Constipation Memantine 10 mg 01/07/21 21:00 01/28/21 11:55 Memantine Hcl 10 Mg Tablet PO 10 mg BID MICAELA Administration Metoprolol Succinate 25 mg 01/08/21 09:00 01/28/21 11:55 Metoprolol Succinate Er 25 Mg Tab.Er.24h PO 25 mg DAILY MICAELA Administration Protocol Mirtazapine 7.5 mg 01/12/21 21:00 01/27/21 20:30 Mirtazapine 7.5 Mg Tablet PO 7.5 mg BEDTIME MICAELA Administration Propafenone HCl 150 mg 01/07/21 21:00 01/28/21 11:56 Propafenone Hcl 150 Mg Tablet PO 150 mg BID MICAELA Administration Sertraline HCl 25 mg 01/07/21 20:15 01/28/21 11:56 Sertraline Hcl 25 Mg Tablet PO 25 mg DAILY MICAELA Administration Trazodone HCl 50 mg 01/06/21 14:48 01/22/21 23:39 Trazodone Hcl 50 Mg Tablet PO 50 mg BEDTIME PRN Administration Insomnia Trazodone HCl 25 mg 01/15/21 15:00 01/27/21 17:17 Trazodone Hcl 25 Mg Halftab PO 25 mg DAILY@1700 MICAELA Administration Warfarin Sodium 6 mg 01/27/21 18:00 01/27/21 17:18 Warfarin Sodium 6 Mg Tablet PO 6 mg DAILY@1800 MICAELA Administration Allergies Allergies Allergy/AdvReac Type Severity Reaction Status Date / Time No Known Allergies Allergy Verified 01/06/21 14:48 Assessment & Plan Assessment & Plan (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 He was admitted due to the presence of psychotic symptoms without a clear stressor. Historically, the patient has never been psychotic and he did not have any prior psychiatric history. As of 01/19- pt with much less behavioral disturbances, sleep has significantly improved, underlying neurocognitive disorder, pt not oriented to place, situation, month, year. ambulating with 1:1 due to unsteady gait, which expected to improved as medications are further adjusted. Continue per primary treatment team Plan 2. Going back to Haldol up to 2.5 mg p.o. t.i.d. The patient got agitated as soon as we tried to lower Haldol. 3. CT scan for today that he has refused. Greater than 50% of the session was spent on counseling and/or coordination of care Reason for contiued inpatient stay Substantial Risk for: harm to others, inability to function, rapid decompensation and med/psych decompensation
[2021-01-28] MEDS: traZODone HCL 25 MG HALFTAB PO (16:47)
[2021-01-28] MEDS: Warfarin Sodium 6 MG TABLET PO (16:48)
[2021-01-28 17:20] VITALS: BP 109/52; PULSE 69; RESP 16; TEMP 36.6; O2SAT 97
[2021-01-28 21:16] VITALS: BP 108/58; PULSE 65; RESP 19; TEMP 36.6; O2SAT 98
[2021-01-28] MEDS: Mirtazapine 7.5 MG TABLET PO (21:44)
[2021-01-28] MEDS: hydrOXYzine HCL 50 MG TABLET PO (21:46)
[2021-01-29 06:00] VITALS: RESP 18
[2021-01-29 06:02] VITALS: BMI 28.7
[2021-01-29 07:16] LABS: INTERNATIONAL NORM RATIO 2.3 (0.9-1.1); Prothrombin Time 26.8 SEC (9.9-13.0)
[2021-01-29] MEDS: HaloperidoL 0.5 MG TABLET 2.5 MG PO ×3 (09:05→19:37)
[2021-01-29] MEDS: Memantine HCl 10 MG TABLET PO ×2 (09:06→19:37)
[2021-01-29 09:07] VITALS: BP 125/67; PULSE 61
[2021-01-29] MEDS: Metoprolol Succinate ER 25 MG TAB.ER.24H PO (09:07)
[2021-01-29] MEDS: Sertraline HCL 25 MG TABLET PO (09:07)
--- NOTE | 2021-01-29 14:36 | HO.PSYCHPN ---
Subjective Subjective Date of Service: 01/29/21 Reason For Visit: Unspecified Depressive Disorder Subjective Notes: Conditional Voluntary Interim History: Yesterday, the nursing staff reported that the patient has refused medications several times. He had to being paranoid and elusive but at night he took his medication. He has been seen today by the staff in good spirits working with his Karla Rosales. His family has explored [facility] an facilities for discharge. On interview, the patient reported that he is doing fine, he looks pleasantly confused but cooperative. The patient has failed GDR and he cannot take less than 7.5 mg of haloperidol per day. Medication Compliance: Yes Side effects from medications: No Attending Groups: Yes Review of Systems Acute medical concerns: No Medical Review of Systems: unchanged Mental Status Exam Mental Status Exam Patient Appearance: Well Grooomed Patient Orientation: Person Level of Consciousness: Awake Patient Behavior: Appropriate Mood Description: Withdrawn Affect Description: Constricted Patient Cognition Impaired: Yes Ability to Follow Directions: Fair Speech Pattern: Clear Hallucinations: None Delusions: Paranoid Ideation Thought Process: Intact Thought Content: positive for Thought Blocking Judgement: Poor Diagnostics Vital Signs (24Hr): Vital Signs - 24 hr 01/28/21 17:20 01/28/21 21:16 01/29/21 06:00 Temperature 97.9 F 97.9 F Pulse Rate 69 65 Respiratory Rate 16 19 18 Blood Pressure 109/52 L 108/58 L Pulse Oximetry 97 98 01/29/21 09:07 Temperature Pulse Rate 61 Respiratory Rate Blood Pressure 125/67 Pulse Oximetry Body Mass Index 28.7 Labs Results: 01/14/21 06:25 01/14/21 06:25 Labs: Laboratory Results - last 48 hr 01/28/21 01/29/21 06:45 06:53 PT 24.6 H D 26.8 H INR 2.1 H 2.3 H Imaging Radiology Impressions: ITS Impressions Head CT 01/13/21 05:50 IMPRESSION: No acute intracranial pathology. Lumbar Spine X-Ray 01/13/21 14:31 IMPRESSION: Mild to moderate thoracolumbar levoscoliosis and multilevel degenerative changes including L4-5 grade 1 anterolisthesis without overt acute abnormality. Head CT 01/27/21 15:01 IMPRESSION: No acute findings. Mild nonspecific periventricular white matter disease and generalized atrophy. Medications Medications Current Medications Generic Name Dose Route Start Last Admin Trade Name Freq PRN Reason Stop Dose Admin Acetaminophen 650 mg 01/06/21 14:48 01/21/21 01:19 Acetaminophen 325 Mg Tablet PO 650 mg Q6H PRN Administration Headache/Pain Mild Scale (1-3) Al Hydroxide/Mg Hydroxide 30 ml 01/06/21 14:48 01/07/21 22:02 Magnesium Hydrox/Alum Hydrox 30 Ml Oral.Susp PO 30 ml Q6H PRN Administration Heartburn/Nausea Furosemide 20 mg 01/08/21 09:00 01/28/21 11:54 Furosemide 20 Mg Tablet PO 20 mg Q48H MICAELA Administration Protocol Haloperidol 5 mg 01/27/21 14:56 01/27/21 15:07 Haloperidol 5 Mg Tablet PO 5 mg TID PRN Administration Psychosis Haloperidol 2.5 mg 01/27/21 21:00 01/29/21 09:05 Haloperidol 0.5 Mg Tablet PO 2.5 mg TID MICAELA Administration Hydroxyzine HCl 50 mg 01/23/21 21:00 01/28/21 21:46 Hydroxyzine Hcl 50 Mg Tablet PO 50 mg BEDTIME MICAELA Administration Magnesium Hydroxide 30 ml 01/06/21 14:48 Milk Of Magnesia 30 Ml Oral.Susp PO DAILY PRN Constipation Memantine 10 mg 01/07/21 21:00 01/29/21 09:06 Memantine Hcl 10 Mg Tablet PO 10 mg BID MICAELA Administration Metoprolol Succinate 25 mg 01/08/21 09:00 01/29/21 09:07 Metoprolol Succinate Er 25 Mg Tab.Er.24h PO 25 mg DAILY MICAELA Administration Protocol Mirtazapine 7.5 mg 01/12/21 21:00 01/28/21 21:44 Mirtazapine 7.5 Mg Tablet PO 7.5 mg BEDTIME MICAELA Administration Propafenone HCl 150 mg 01/07/21 21:00 01/29/21 09:11 Propafenone Hcl 150 Mg Tablet PO 150 mg BID MICAELA Administration Sertraline HCl 25 mg 01/07/21 20:15 01/29/21 09:07 Sertraline Hcl 25 Mg Tablet PO 25 mg DAILY MICAELA Administration Trazodone HCl 50 mg 01/06/21 14:48 01/22/21 23:39 Trazodone Hcl 50 Mg Tablet PO 50 mg BEDTIME PRN Administration Insomnia Trazodone HCl 25 mg 01/15/21 15:00 01/28/21 16:47 Trazodone Hcl 25 Mg Halftab PO 25 mg DAILY@1700 MICAELA Administration Warfarin Sodium 6 mg 01/27/21 18:00 01/28/21 16:48 Warfarin Sodium 6 Mg Tablet PO 6 mg DAILY@1800 MICAELA Administration Allergies Allergies Allergy/AdvReac Type Severity Reaction Status Date / Time No Known Allergies Allergy Verified 01/06/21 14:48 Assessment & Plan Assessment & Plan (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 He was admitted due to the presence of psychotic symptoms without a clear stressor. Historically, the patient has never been psychotic and he did not have any prior psychiatric history. As of 01/19- pt with much less behavioral disturbances, sleep has significantly improved, underlying neurocognitive disorder, pt not oriented to place, situation, month, year. ambulating with 1:1 due to unsteady gait, which expected to improved as medications are further adjusted. Continue per primary treatment team Plan 2. Going back to Haldol up to 2.5 mg p.o. t.i.d. The patient got agitated as soon as we tried to lower Haldol. 3. CT scan for today that he has refused. Greater than 50% of the session was spent on counseling and/or coordination of care Reason for contiued inpatient stay Substantial Risk for: harm to others, inability to function, stable for discharge and med/psych decompensation
[2021-01-29] MEDS: traZODone HCL 25 MG HALFTAB PO (17:32)
[2021-01-29] MEDS: Warfarin Sodium 6 MG TABLET PO (17:32)
[2021-01-29] MEDS: Mirtazapine 7.5 MG TABLET PO (19:37)
[2021-01-29] MEDS: hydrOXYzine HCL 50 MG TABLET PO (19:37)
[2021-01-29 20:53] VITALS: BP 108/55; PULSE 69; RESP 19; TEMP 37; O2SAT 98
[2021-01-30 06:00] VITALS: BP 135/70; PULSE 68; RESP 18; TEMP 36.6; O2SAT 97
[2021-01-30 06:54] VITALS: BMI 28.5
[2021-01-30 07:15] LABS: INTERNATIONAL NORM RATIO 2.6 (0.9-1.1); Prothrombin Time 30.5 SEC (9.9-13.0)
[2021-01-30 08:00] VITALS: BMI 28.5
[2021-01-30 08:27] VITALS: BP 107/68; PULSE 65
[2021-01-30] MEDS: Furosemide 20 MG TABLET PO (08:27)
[2021-01-30] MEDS: HaloperidoL 0.5 MG TABLET 2.5 MG PO ×3 (08:27→20:21)
[2021-01-30] MEDS: Metoprolol Succinate ER 25 MG TAB.ER.24H PO (08:27)
[2021-01-30] MEDS: Memantine HCl 10 MG TABLET PO ×2 (08:28→20:22)
[2021-01-30] MEDS: Sertraline HCL 25 MG TABLET PO (08:28)
--- NOTE | 2021-01-30 13:08 | HO.PSYCHPN ---
Subjective Subjective Date of Service: 01/30/21 Reason For Visit: Unspecified Depressive Disorder Subjective Notes: Conditional Voluntary Interim History: The nursing staff reported the patient has been compliant with treatment. Today in the morning he was dysphoric and sad tearful at times. No evidence of responding to internal stimuli at this moment. Mental Status Exam Mental Status Exam Patient Appearance: Well Grooomed Patient Orientation: Person Level of Consciousness: Awake Patient Behavior: Guarded, Passive and Wandering Mood Description: Constricted and Depressed Affect Description: Constricted and Labile Patient Cognition Impaired: Yes Ability to Follow Directions: Good Speech Pattern: Clear Hallucinations: None Delusions: Paranoid Ideation Thought Process: Slowed Thinking Thought Content: positive for Circumstantial Judgement: Poor Diagnostics Vital Signs (24Hr): Vital Signs - 24 hr 01/29/21 20:53 01/30/21 06:00 01/30/21 08:27 Temperature 98.6 F 97.9 F Pulse Rate 69 68 65 Respiratory Rate 19 18 Blood Pressure 108/55 L 135/70 107/68 Pulse Oximetry 98 97 Body Mass Index 28.5 Labs Results: 01/14/21 06:25 01/14/21 06:25 Labs: Laboratory Results - last 48 hr 01/29/21 01/30/21 06:53 07:00 PT 26.8 H 30.5 H INR 2.3 H 2.6 H Imaging Radiology Impressions: ITS Impressions Head CT 01/13/21 05:50 IMPRESSION: No acute intracranial pathology. Lumbar Spine X-Ray 01/13/21 14:31 IMPRESSION: Mild to moderate thoracolumbar levoscoliosis and multilevel degenerative changes including L4-5 grade 1 anterolisthesis without overt acute abnormality. Head CT 01/27/21 15:01 IMPRESSION: No acute findings. Mild nonspecific periventricular white matter disease and generalized atrophy. Medications Medications Current Medications Generic Name Dose Route Start Last Admin Trade Name Freq PRN Reason Stop Dose Admin Acetaminophen 650 mg 01/06/21 14:48 01/21/21 01:19 Acetaminophen 325 Mg Tablet PO 650 mg Q6H PRN Administration Headache/Pain Mild Scale (1-3) Al Hydroxide/Mg Hydroxide 30 ml 01/06/21 14:48 01/07/21 22:02 Magnesium Hydrox/Alum Hydrox 30 Ml Oral.Susp PO 30 ml Q6H PRN Administration Heartburn/Nausea Furosemide 20 mg 01/08/21 09:00 01/30/21 08:27 Furosemide 20 Mg Tablet PO 20 mg Q48H MICAELA Administration Protocol Haloperidol 5 mg 01/27/21 14:56 01/27/21 15:07 Haloperidol 5 Mg Tablet PO 5 mg TID PRN Administration Psychosis Haloperidol 2.5 mg 01/27/21 21:00 01/30/21 08:27 Haloperidol 0.5 Mg Tablet PO 2.5 mg TID MICAELA Administration Hydroxyzine HCl 50 mg 01/23/21 21:00 01/29/21 19:37 Hydroxyzine Hcl 50 Mg Tablet PO 50 mg BEDTIME MICAELA Administration Magnesium Hydroxide 30 ml 01/06/21 14:48 Milk Of Magnesia 30 Ml Oral.Susp PO DAILY PRN Constipation Memantine 10 mg 01/07/21 21:00 01/30/21 08:28 Memantine Hcl 10 Mg Tablet PO 10 mg BID MICAELA Administration Metoprolol Succinate 25 mg 01/08/21 09:00 01/30/21 08:27 Metoprolol Succinate Er 25 Mg Tab.Er.24h PO 25 mg DAILY MICAELA Administration Protocol Mirtazapine 7.5 mg 01/12/21 21:00 01/29/21 19:37 Mirtazapine 7.5 Mg Tablet PO 7.5 mg BEDTIME MICAELA Administration Propafenone HCl 150 mg 01/07/21 21:00 01/30/21 08:27 Propafenone Hcl 150 Mg Tablet PO 150 mg BID MICAELA Administration Sertraline HCl 25 mg 01/07/21 20:15 01/30/21 08:28 Sertraline Hcl 25 Mg Tablet PO 25 mg DAILY MICAELA Administration Trazodone HCl 50 mg 01/06/21 14:48 01/22/21 23:39 Trazodone Hcl 50 Mg Tablet PO 50 mg BEDTIME PRN Administration Insomnia Trazodone HCl 25 mg 01/15/21 15:00 01/29/21 17:32 Trazodone Hcl 25 Mg Halftab PO 25 mg DAILY@1700 MICAELA Administration Warfarin Sodium 6 mg 01/27/21 18:00 01/29/21 17:32 Warfarin Sodium 6 Mg Tablet PO 6 mg DAILY@1800 MICAELA Administration Allergies Allergies Allergy/AdvReac Type Severity Reaction Status Date / Time No Known Allergies Allergy Verified 01/06/21 14:48 Assessment & Plan Assessment & Plan (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 He was admitted due to the presence of psychotic symptoms without a clear stressor. Historically, the patient has never been psychotic and he did not have any prior psychiatric history. As of 01/19- pt with much less behavioral disturbances, sleep has significantly improved, underlying neurocognitive disorder, pt not oriented to place, situation, month, year. ambulating with 1:1 due to unsteady gait, which expected to improved as medications are further adjusted. Continue per primary treatment team Plan 2. Going back to Haldol up to 2.5 mg p.o. t.i.d. The patient got agitated as soon as we tried to lower Haldol. 3. CT scan for today that he has refused. 4. His start a mood stabilizer to target mood lability. Since the patient is on Coumadin Depakote is not an option. Most likely, Lamictal would be a good option for him at this point. Greater than 50% of the session was spent on counseling and/or coordination of care Reason for contiued inpatient stay Substantial Risk for: harm to others, inability to function, rapid decompensation and med/psych decompensation
[2021-01-30] MEDS: HaloperidoL 5 MG TABLET PO (14:59)
[2021-01-30] MEDS: Warfarin Sodium 6 MG TABLET PO (16:38)
[2021-01-30] MEDS: traZODone HCL 25 MG HALFTAB PO (16:38)
[2021-01-30 18:00] VITALS: BP 144/68; PULSE 73; RESP 18; TEMP 36.5; O2SAT 98
[2021-01-30] MEDS: Mirtazapine 7.5 MG TABLET PO (20:22)
[2021-01-30] MEDS: lamoTRIgine 25 MG TABLET PO (20:22)
[2021-01-30] MEDS: hydrOXYzine HCL 50 MG TABLET PO (20:22)
[2021-01-31 06:47] VITALS: BMI 28.8
[2021-01-31 06:51] LABS: INTERNATIONAL NORM RATIO 2.8 (0.9-1.1); Prothrombin Time 32.8 SEC (9.9-13.0)
[2021-01-31] MEDS: HaloperidoL 0.5 MG TABLET 2.5 MG PO ×3 (09:04→19:39)
[2021-01-31] MEDS: Metoprolol Succinate ER 25 MG TAB.ER.24H PO ×2 (09:06→09:12)
[2021-01-31] MEDS: Sertraline HCL 25 MG TABLET PO (09:06)
[2021-01-31] MEDS: Memantine HCl 10 MG TABLET PO ×2 (09:06→19:41)
[2021-01-31 09:12] VITALS: BP 117/56; PULSE 72
[2021-01-31 09:14] VITALS: BP 117/56; PULSE 72; RESP 16; TEMP 35.6; O2SAT 99
--- NOTE | 2021-01-31 11:31 | PC.NURSE ---
While doing am care with patient it was noted that he had slept in his clothes from the day before. It was also noted that he has an area of skin breakdown across the abdomen under the fold of skin. It was damp and smelled as if it was fungal in nature. He was cleaned, well dried and barrier cream applied. faculty i on call medical assistant physician will be notified. Wound care consult will be called.
--- NOTE | 2021-01-31 13:44 | HO.PSYCHPN ---
Subjective Subjective Date of Service: 01/31/21 Reason For Visit: Unspecified Depressive Disorder Interim History: The nursing staff reported the patient has been compliant with treatment. He was seen in the day room. He was resting. Arose to speech. He reported feeling well. He is compliant. He is calmly confused. No evidence of responding to internal stimuli at this moment. Review of Systems Review of Systems Yes Unobtainable due to mental status Mental Status Exam Mental Status Exam Narrative: Appearance: casually groomed, good hygiene in NAD Behavior:cooperative psychomotor: no agitation or agitation noted Speech: mostly clear, some expressive aphasia noted, spontaneous Thought process:poverty of thought Thought content:no overt psychosis Mood: good Affect: congruent SI: none HI:none VH/AH:does not appear internally preoccupied as before Delusions:none Insight/judgment:impaired x 2. Memory/cog: alert, not oriented to place, months, date nor situation, underlying neurocognitive disorder. Patient Appearance: Well Grooomed Patient Orientation: Person Level of Consciousness: Awake Patient Behavior: Guarded, Passive and Wandering Mood Description: Constricted and Depressed Affect Description: Constricted and Labile Patient Cognition Impaired: Yes Ability to Follow Directions: Good Speech Pattern: Clear Memory Description: Intact Diagnostics Vital Signs (24Hr): Vital Signs - 24 hr 01/30/21 18:00 01/31/21 09:12 01/31/21 09:14 Temperature 97.7 F 96.1 F L Pulse Rate 73 72 72 Respiratory Rate 18 16 Blood Pressure 144/68 H 117/56 L 117/56 L Pulse Oximetry 98 99 Body Mass Index 28.8 Labs Results: 01/14/21 06:25 01/14/21 06:25 Labs: Laboratory Results - last 48 hr 01/30/21 01/31/21 07:00 06:28 PT 30.5 H 32.8 H INR 2.6 H 2.8 H Imaging Radiology Impressions: ITS Impressions Head CT 01/13/21 05:50 IMPRESSION: No acute intracranial pathology. Lumbar Spine X-Ray 01/13/21 14:31 IMPRESSION: Mild to moderate thoracolumbar levoscoliosis and multilevel degenerative changes including L4-5 grade 1 anterolisthesis without overt acute abnormality. Head CT 01/27/21 15:01 IMPRESSION: No acute findings. Mild nonspecific periventricular white matter disease and generalized atrophy. Medications Medications Current Medications Generic Name Dose Route Start Last Admin Trade Name Freq PRN Reason Stop Dose Admin Acetaminophen 650 mg 01/06/21 14:48 01/21/21 01:19 Acetaminophen 325 Mg Tablet PO 650 mg Q6H PRN Administration Headache/Pain Mild Scale (1-3) Al Hydroxide/Mg Hydroxide 30 ml 01/06/21 14:48 01/07/21 22:02 Magnesium Hydrox/Alum Hydrox 30 Ml Oral.Susp PO 30 ml Q6H PRN Administration Heartburn/Nausea Furosemide 20 mg 01/08/21 09:00 01/30/21 08:27 Furosemide 20 Mg Tablet PO 20 mg Q48H MICAELA Administration Protocol Haloperidol 5 mg 01/27/21 14:56 01/30/21 14:59 Haloperidol 5 Mg Tablet PO 5 mg TID PRN Administration Psychosis Haloperidol 2.5 mg 01/27/21 21:00 01/31/21 09:04 Haloperidol 0.5 Mg Tablet PO 2.5 mg TID MICAELA Administration Hydroxyzine HCl 50 mg 01/23/21 21:00 01/30/21 20:22 Hydroxyzine Hcl 50 Mg Tablet PO 50 mg BEDTIME MICAELA Administration Lamotrigine 25 mg 01/30/21 21:00 01/30/21 20:22 Lamotrigine 25 Mg Tablet PO 25 mg BEDTIME MICAELA Administration Magnesium Hydroxide 30 ml 01/06/21 14:48 Milk Of Magnesia 30 Ml Oral.Susp PO DAILY PRN Constipation Memantine 10 mg 01/07/21 21:00 01/31/21 09:06 Memantine Hcl 10 Mg Tablet PO 10 mg BID MICAELA Administration Metoprolol Succinate 25 mg 01/08/21 09:00 01/31/21 09:12 Metoprolol Succinate Er 25 Mg Tab.Er.24h PO 25 mg DAILY MICAELA Administration Protocol Mirtazapine 7.5 mg 01/12/21 21:00 01/30/21 20:22 Mirtazapine 7.5 Mg Tablet PO 7.5 mg BEDTIME MICAELA Administration Propafenone HCl 150 mg 01/07/21 21:00 01/31/21 09:06 Propafenone Hcl 150 Mg Tablet PO 150 mg BID MICAELA Administration Sertraline HCl 25 mg 01/07/21 20:15 01/31/21 09:06 Sertraline Hcl 25 Mg Tablet PO 25 mg DAILY MICAELA Administration Trazodone HCl 50 mg 01/06/21 14:48 01/22/21 23:39 Trazodone Hcl 50 Mg Tablet PO 50 mg BEDTIME PRN Administration Insomnia Trazodone HCl 25 mg 01/15/21 15:00 01/30/21 16:38 Trazodone Hcl 25 Mg Halftab PO 25 mg DAILY@1700 MICAELA Administration Warfarin Sodium 6 mg 01/27/21 18:00 01/30/21 16:38 Warfarin Sodium 6 Mg Tablet PO 6 mg DAILY@1800 MICAELA Administration Allergies Allergies Allergy/AdvReac Type Severity Reaction Status Date / Time No Known Allergies Allergy Verified 01/06/21 14:48 Assessment & Plan Assessment & Plan (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 He was admitted due to the presence of psychotic symptoms without a clear stressor. Historically, the patient has never been psychotic and he did not have any prior psychiatric history. As of 01/19- pt with much less behavioral disturbances, sleep has significantly improved, underlying neurocognitive disorder, pt not oriented to place, situation, month, year. ambulating with 1:1 due to unsteady gait, which expected to improved as medications are further adjusted. Continue per primary treatment team Plan 2. Going back to Haldol up to 2.5 mg p.o. t.i.d. The patient got agitated as soon as we tried to lower Haldol. 3. CT scan for today that he has refused. 4. His start a mood stabilizer to target mood lability. Since the patient is on Coumadin Depakote is not an option. Most likely, Lamictal would be a good option for him at this point. Greater than 50% of the session was spent on counseling and/or coordination of care Reason for contiued inpatient stay Substantial Risk for: inability to function and rapid decompensation
[2021-01-31] MEDS: Warfarin Sodium 6 MG TABLET PO (17:14)
[2021-01-31] MEDS: traZODone HCL 25 MG HALFTAB PO (17:14)
[2021-01-31 18:00] VITALS: BP 166/75; PULSE 72; RESP 22; TEMP 35.9; O2SAT 97
[2021-01-31] MEDS: hydrOXYzine HCL 50 MG TABLET PO (19:41)
[2021-01-31] MEDS: lamoTRIgine 25 MG TABLET PO (19:41)
[2021-01-31] MEDS: Mirtazapine 7.5 MG TABLET PO (19:42)
[2021-02-01 07:49] LABS: Prothrombin Time 35.1 SEC (9.9-13.0)
[2021-02-01 08:02] VITALS: BP 135/65; PULSE 66; RESP 17; TEMP 36.7; O2SAT 97
[2021-02-01] MEDS: HaloperidoL 0.5 MG TABLET 2.5 MG PO ×3 (08:03→19:47)
[2021-02-01] MEDS: Furosemide 20 MG TABLET PO (08:03)
[2021-02-01 08:04] VITALS: BP 135/65; PULSE 66
[2021-02-01] MEDS: Memantine HCl 10 MG TABLET PO ×2 (08:04→19:47)
[2021-02-01] MEDS: Sertraline HCL 25 MG TABLET PO (08:04)
[2021-02-01] MEDS: Metoprolol Succinate ER 25 MG TAB.ER.24H PO (08:04)
--- NOTE | 2021-02-01 17:53 | HO.PSYCHPN ---
Subjective Subjective Date of Service: 02/01/21 Reason For Visit: Unspecified Depressive Disorder Interim History: The nursing staff reported the patient has been compliant with treatment. He was seen in the day room.His was accompanying him. She reports she feels he is improving and has not seen him hallucinate as in past. He is compliant. He is calmly confused. No evidence of responding to internal stimuli at this moment. Review of Systems Review of Systems Yes Unobtainable due to mental status Mental Status Exam Mental Status Exam Narrative: Appearance: casually groomed, good hygiene in NAD Behavior:cooperative psychomotor: no agitation or agitation noted Speech: mostly clear, some expressive aphasia noted, spontaneous Thought process:poverty of thought Thought content:no overt psychosis Mood: good Affect: congruent SI: none HI:none VH/AH:does not appear internally preoccupied as before Delusions:none Insight/judgment:impaired x 2. Memory/cog: alert, not oriented to place, months, date nor situation, underlying neurocognitive disorder. Patient Appearance: Well Grooomed Patient Orientation: Person Level of Consciousness: Awake Patient Behavior: Guarded, Passive and Wandering Mood Description: Constricted and Depressed Affect Description: Constricted and Labile Patient Cognition Impaired: Yes Ability to Follow Directions: Good Speech Pattern: Clear Memory Description: Intact Diagnostics Vital Signs (24Hr): Vital Signs - 24 hr 01/31/21 18:00 02/01/21 08:02 02/01/21 08:04 Temperature 96.7 F L 98.1 F Pulse Rate 72 66 66 Respiratory Rate 22 H 17 Blood Pressure 166/75 H 135/65 135/65 Pulse Oximetry 97 97 Body Mass Index 28.8 Labs Results: 01/14/21 06:25 01/14/21 06:25 Labs: Laboratory Results - last 48 hr 01/31/21 02/01/21 06:28 06:45 PT 32.8 H 35.1 H INR 2.8 H 3.0 H Imaging Radiology Impressions: ITS Impressions Head CT 01/13/21 05:50 IMPRESSION: No acute intracranial pathology. Lumbar Spine X-Ray 01/13/21 14:31 IMPRESSION: Mild to moderate thoracolumbar levoscoliosis and multilevel degenerative changes including L4-5 grade 1 anterolisthesis without overt acute abnormality. Head CT 01/27/21 15:01 IMPRESSION: No acute findings. Mild nonspecific periventricular white matter disease and generalized atrophy. Medications Medications Current Medications Generic Name Dose Route Start Last Admin Trade Name Freq PRN Reason Stop Dose Admin Acetaminophen 650 mg 01/06/21 14:48 01/21/21 01:19 Acetaminophen 325 Mg Tablet PO 650 mg Q6H PRN Administration Headache/Pain Mild Scale (1-3) Al Hydroxide/Mg Hydroxide 30 ml 01/06/21 14:48 01/07/21 22:02 Magnesium Hydrox/Alum Hydrox 30 Ml Oral.Susp PO 30 ml Q6H PRN Administration Heartburn/Nausea Furosemide 20 mg 01/08/21 09:00 02/01/21 08:03 Furosemide 20 Mg Tablet PO 20 mg Q48H MICAELA Administration Protocol Haloperidol 5 mg 01/27/21 14:56 01/30/21 14:59 Haloperidol 5 Mg Tablet PO 5 mg TID PRN Administration Psychosis Haloperidol 2.5 mg 01/27/21 21:00 02/01/21 14:54 Haloperidol 0.5 Mg Tablet PO 2.5 mg TID MICAELA Administration Hydroxyzine HCl 50 mg 01/23/21 21:00 01/31/21 19:41 Hydroxyzine Hcl 50 Mg Tablet PO 50 mg BEDTIME MICAELA Administration Lamotrigine 25 mg 01/30/21 21:00 01/31/21 19:41 Lamotrigine 25 Mg Tablet PO 25 mg BEDTIME MICAELA Administration Magnesium Hydroxide 30 ml 01/06/21 14:48 Milk Of Magnesia 30 Ml Oral.Susp PO DAILY PRN Constipation Memantine 10 mg 01/07/21 21:00 02/01/21 08:04 Memantine Hcl 10 Mg Tablet PO 10 mg BID MICAELA Administration Metoprolol Succinate 25 mg 01/08/21 09:00 02/01/21 08:04 Metoprolol Succinate Er 25 Mg Tab.Er.24h PO 25 mg DAILY MICAELA Administration Protocol Mirtazapine 7.5 mg 01/12/21 21:00 01/31/21 19:42 Mirtazapine 7.5 Mg Tablet PO 7.5 mg BEDTIME MICAELA Administration Propafenone HCl 150 mg 01/07/21 21:00 02/01/21 08:03 Propafenone Hcl 150 Mg Tablet PO 150 mg BID MICAELA Administration Sertraline HCl 25 mg 01/07/21 20:15 02/01/21 08:04 Sertraline Hcl 25 Mg Tablet PO 25 mg DAILY MICAELA Administration Trazodone HCl 50 mg 01/06/21 14:48 01/22/21 23:39 Trazodone Hcl 50 Mg Tablet PO 50 mg BEDTIME PRN Administration Insomnia Trazodone HCl 25 mg 01/15/21 15:00 02/01/21 16:47 Trazodone Hcl 25 Mg Halftab PO Not Given DAILY@1700 [facility] Warfarin Sodium 5 mg 02/01/21 18:00 Warfarin Sodium 5 Mg Tablet PO DAILY@1800 [facility] Allergies Allergies Allergy/AdvReac Type Severity Reaction Status Date / Time No Known Allergies Allergy Verified 01/06/21 14:48 Assessment & Plan Assessment & Plan (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 He was admitted due to the presence of psychotic symptoms without a clear stressor. Historically, the patient has never been psychotic and he did not have any prior psychiatric history. As of 01/19- pt with much less behavioral disturbances, sleep has significantly improved, underlying neurocognitive disorder, pt not oriented to place, situation, month, year. ambulating with 1:1 due to unsteady gait, which expected to improved as medications are further adjusted. Continue per primary treatment team Plan 2. Going back to Haldol up to 2.5 mg p.o. t.i.d. The patient got agitated as soon as we tried to lower Haldol. 3. CT scan for today that he has refused. 4. His start a mood stabilizer to target mood lability. Since the patient is on Coumadin Depakote is not an option. Most likely, Lamictal would be a good option for him at this point. Greater than 50% of the session was spent on counseling and/or coordination of care Reason for contiued inpatient stay Substantial Risk for: inability to function and rapid decompensation
[2021-02-01 18:00] VITALS: BP 102/58; PULSE 66; RESP 17; TEMP 36.7; O2SAT 98
[2021-02-01] MEDS: Warfarin Sodium 5 MG TABLET PO (18:14)
[2021-02-01] MEDS: Mirtazapine 7.5 MG TABLET PO (19:47)
[2021-02-01] MEDS: lamoTRIgine 25 MG TABLET PO (19:48)
[2021-02-01] MEDS: hydrOXYzine HCL 50 MG TABLET PO (19:48)
[2021-02-02 05:20] VITALS: BMI 29.0
[2021-02-02 07:54] LABS: INTERNATIONAL NORM RATIO 3.3 (0.9-1.1); Prothrombin Time 38.2 SEC (9.9-13.0)
--- NOTE | 2021-02-02 08:21 | P.PNPSI_ITS ---
Subjective Subjective Date of Service: 02/02/21 Reason For Visit: Unspecified Depressive Disorder Subjective Notes: Conditional Voluntary Interim History: The nursing staff reported the patient has being emotional but mostly sleepy and seclusive in his room. No evidence of incontinence. On interview, the patient remains confused but no evidence of active psychotic symptoms. He looks more dysphoric. Since we started Lamictal, we will titrate that up Mental Status Exam Mental Status Exam Patient Appearance: Well Grooomed and Disheveled Patient Orientation: Person Level of Consciousness: Awake Patient Behavior: Guarded and Suspicious Mood Description: Withdrawn and Depressed Affect Description: Constricted Patient Cognition Impaired: Yes Ability to Follow Directions: Fair Speech Pattern: Clear Memory Description: Remote Impaired, Immediate Impaired, Fpc Impaired and Recent Impaired Hallucinations: None Delusions: Paranoid Ideation Thought Process: Illogical and Slowed Thinking Thought Content: positive for Poverty of Content and positive for Slowed Thinking Judgement: Poor Diagnostics Vital Signs (24Hr): Vital Signs - 24 hr 02/01/21 18:00 Temperature 98.1 F Pulse Rate 66 Respiratory Rate 17 Blood Pressure 102/58 L Pulse Oximetry 98 Body Mass Index 29.0 Labs Results: 01/14/21 06:25 01/14/21 06:25 Labs: Laboratory Results - last 48 hr 02/01/21 02/02/21 06:45 07:39 PT 35.1 H 38.2 H INR 3.0 H 3.3 H Imaging Radiology Impressions: ITS Impressions Head CT 01/13/21 05:50 IMPRESSION: No acute intracranial pathology. Lumbar Spine X-Ray 01/13/21 14:31 IMPRESSION: Mild to moderate thoracolumbar levoscoliosis and multilevel degenerative changes including L4-5 grade 1 anterolisthesis without overt acute abnormality. Head CT 01/27/21 15:01 IMPRESSION: No acute findings. Mild nonspecific periventricular white matter disease and generalized atrophy. Medications Medications Current Medications Generic Name Dose Route Start Last Admin Trade Name Freq PRN Reason Stop Dose Admin Acetaminophen 650 mg 01/06/21 14:48 01/21/21 01:19 Acetaminophen 325 Mg Tablet PO 650 mg Q6H PRN Administration Headache/Pain Mild Scale (1-3) Al Hydroxide/Mg Hydroxide 30 ml 01/06/21 14:48 01/07/21 22:02 Magnesium Hydrox/Alum Hydrox 30 Ml Oral.Susp PO 30 ml Q6H PRN Administration Heartburn/Nausea Furosemide 20 mg 01/08/21 09:00 02/01/21 08:03 Furosemide 20 Mg Tablet PO 20 mg Q48H MICAELA Administration Protocol Haloperidol 5 mg 01/27/21 14:56 01/30/21 14:59 Haloperidol 5 Mg Tablet PO 5 mg TID PRN Administration Psychosis Haloperidol 2.5 mg 01/27/21 21:00 02/01/21 19:47 Haloperidol 0.5 Mg Tablet PO 2.5 mg TID MICAELA Administration Hydroxyzine HCl 50 mg 01/23/21 21:00 02/01/21 19:48 Hydroxyzine Hcl 50 Mg Tablet PO 50 mg BEDTIME MICAELA Administration Lamotrigine 25 mg 01/30/21 21:00 02/01/21 19:48 Lamotrigine 25 Mg Tablet PO 25 mg BEDTIME MICAELA Administration Magnesium Hydroxide 30 ml 01/06/21 14:48 Milk Of Magnesia 30 Ml Oral.Susp PO DAILY PRN Constipation Memantine 10 mg 01/07/21 21:00 02/01/21 19:47 Memantine Hcl 10 Mg Tablet PO 10 mg BID MICAELA Administration Metoprolol Succinate 25 mg 01/08/21 09:00 02/01/21 08:04 Metoprolol Succinate Er 25 Mg Tab.Er.24h PO 25 mg DAILY MICAELA Administration Protocol Mirtazapine 7.5 mg 01/12/21 21:00 02/01/21 19:47 Mirtazapine 7.5 Mg Tablet PO 7.5 mg BEDTIME MICAELA Administration Propafenone HCl 150 mg 01/07/21 21:00 02/01/21 19:48 Propafenone Hcl 150 Mg Tablet PO 150 mg BID MICAELA Administration Sertraline HCl 25 mg 01/07/21 20:15 02/01/21 08:04 Sertraline Hcl 25 Mg Tablet PO 25 mg DAILY MICAELA Administration Trazodone HCl 50 mg 01/06/21 14:48 01/22/21 23:39 Trazodone Hcl 50 Mg Tablet PO 50 mg BEDTIME PRN Administration Insomnia Trazodone HCl 25 mg 01/15/21 15:00 02/01/21 16:47 Trazodone Hcl 25 Mg Halftab PO Not Given DAILY@1700 [facility] Warfarin Sodium 4 mg 02/02/21 18:00 Warfarin Sodium 4 Mg Tablet PO DAILY@1800 [facility] Allergies Allergies Allergy/AdvReac Type Severity Reaction Status Date / Time No Known Allergies Allergy Verified 01/06/21 14:48 Assessment & Plan Assessment & Plan (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 He was admitted due to the presence of psychotic symptoms without a clear stressor. Historically, the patient has never been psychotic and he did not have any prior psychiatric history. As of 01/19- pt with much less behavioral disturbances, sleep has significantly improved, underlying neurocognitive disorder, pt not oriented to place, situation, month, year. ambulating with 1:1 due to unsteady gait, which expected to improved as medications are further adjusted. Continue per primary treatment team Plan 2. Going back to Haldol up to 2.5 mg p.o. t.i.d. The patient got agitated as soon as we tried to lower Haldol. 3. CT scan for today that he has refused. 4. His start a mood stabilizer to target mood lability. Since the patient is on Coumadin Depakote is not an option. Most likely, Lamictal would be a good option for him at this point. We will continue the titration of Lamictal up to 25 mg p.o. b.i.d. Greater than 50% of the session was spent on counseling and/or coordination of care Reason for contiued inpatient stay Substantial Risk for: harm to self, harm to others, inability to function, rapid decompensation and med/psych decompensation
[2021-02-02 08:25] VITALS: BP 109/55; PULSE 72; TEMP 36.4; O2SAT 98
[2021-02-02] MEDS: HaloperidoL 0.5 MG TABLET 2.5 MG PO ×3 (09:10→21:18)
[2021-02-02] MEDS: Sertraline HCL 25 MG TABLET PO (09:11)
[2021-02-02] MEDS: Memantine HCl 10 MG TABLET PO ×2 (09:11→21:19)
[2021-02-02] MEDS: traZODone HCL 25 MG HALFTAB PO (16:45)
[2021-02-02] MEDS: Warfarin Sodium 4 MG TABLET PO (17:56)
[2021-02-02 20:45] VITALS: BP 118/63; PULSE 73; RESP 20; TEMP 36.4; O2SAT 98
[2021-02-02] MEDS: Mirtazapine 7.5 MG TABLET PO (21:19)
[2021-02-02] MEDS: lamoTRIgine 25 MG TABLET PO (21:19)
[2021-02-02] MEDS: hydrOXYzine HCL 50 MG TABLET PO (21:20)
[2021-02-03 05:41] VITALS: BMI 28.5
[2021-02-03 06:00] VITALS: BP 106/52; PULSE 78; RESP 17; TEMP 36.6; O2SAT 96
[2021-02-03 07:57] LABS: INTERNATIONAL NORM RATIO 3.1 (0.9-1.1); Prothrombin Time 36.2 SEC (9.9-13.0)
[2021-02-03] MEDS: Memantine HCl 10 MG TABLET PO ×2 (09:37→19:59)
[2021-02-03] MEDS: Sertraline HCL 25 MG TABLET PO (09:37)
[2021-02-03] MEDS: HaloperidoL 0.5 MG TABLET 2.5 MG PO ×3 (09:37→19:57)
[2021-02-03 09:38] VITALS: BP 110/60; PULSE 78
[2021-02-03] MEDS: Furosemide 20 MG TABLET PO (09:38)
[2021-02-03] MEDS: Metoprolol Succinate ER 25 MG TAB.ER.24H PO (09:38)
[2021-02-03] MEDS: lamoTRIgine 25 MG TABLET PO ×2 (09:39→19:59)
--- NOTE | 2021-02-03 12:43 | P.PNPSI_ITS ---
Subjective Subjective Date of Service: 02/03/21 Reason For Visit: Unspecified Depressive Disorder Subjective Notes: Conditional Voluntary Interim History: The nursing staff reported that the patient remains mostly dysphoric in the afternoon, he is teaful at times at hs2. He is fully aware that he is not going back home. He has been continent and he walks without the wlaker without problems Review of Systems Acute medical concerns: No Medical Review of Systems: unchanged Mental Status Exam Mental Status Exam Patient Appearance: Well Grooomed Patient Orientation: Person Level of Consciousness: Awake Patient Behavior: Cooperative Mood Description: Constricted Affect Description: Constricted Patient Cognition Impaired: Yes Ability to Follow Directions: Good Speech Pattern: Appropriate Hallucinations: None Delusions: Paranoid Ideation Thought Process: Racing Thought Content: positive for Allen Judgement: Fair Diagnostics Vital Signs (24Hr): Vital Signs - 24 hr 02/02/21 20:45 02/03/21 06:00 02/03/21 09:38 Temperature 97.5 F 98 F Pulse Rate 73 78 78 Respiratory Rate 20 17 Blood Pressure 118/63 106/52 L 110/60 Pulse Oximetry 98 96 Body Mass Index 28.5 Labs Results: 01/14/21 06:25 01/14/21 06:25 Labs: Laboratory Results - last 48 hr 02/02/21 02/03/21 07:39 07:45 PT 38.2 H 36.2 H INR 3.3 H 3.1 H Imaging Radiology Impressions: ITS Impressions Head CT 01/13/21 05:50 IMPRESSION: No acute intracranial pathology. Lumbar Spine X-Ray 01/13/21 14:31 IMPRESSION: Mild to moderate thoracolumbar levoscoliosis and multilevel degenerative changes including L4-5 grade 1 anterolisthesis without overt acute abnormality. Head CT 01/27/21 15:01 IMPRESSION: No acute findings. Mild nonspecific periventricular white matter disease and generalized atrophy. Medications Medications Current Medications Generic Name Dose Route Start Last Admin Trade Name Freq PRN Reason Stop Dose Admin Acetaminophen 650 mg 01/06/21 14:48 01/21/21 01:19 Acetaminophen 325 Mg Tablet PO 650 mg Q6H PRN Administration Headache/Pain Mild Scale (1-3) Al Hydroxide/Mg Hydroxide 30 ml 01/06/21 14:48 01/07/21 22:02 Magnesium Hydrox/Alum Hydrox 30 Ml Oral.Susp PO 30 ml Q6H PRN Administration Heartburn/Nausea Furosemide 20 mg 01/08/21 09:00 02/03/21 09:38 Furosemide 20 Mg Tablet PO 20 mg Q48H MICAELA Administration Protocol Haloperidol 5 mg 01/27/21 14:56 01/30/21 14:59 Haloperidol 5 Mg Tablet PO 5 mg TID PRN Administration Psychosis Haloperidol 2.5 mg 01/27/21 21:00 02/03/21 09:37 Haloperidol 0.5 Mg Tablet PO 2.5 mg TID MICAELA Administration Hydroxyzine HCl 50 mg 01/23/21 21:00 02/02/21 21:20 Hydroxyzine Hcl 50 Mg Tablet PO 50 mg BEDTIME MICAELA Administration Lamotrigine 25 mg 02/02/21 21:00 02/03/21 09:39 Lamotrigine 25 Mg Tablet PO 25 mg BID MICAELA Administration Magnesium Hydroxide 30 ml 01/06/21 14:48 Milk Of Magnesia 30 Ml Oral.Susp PO DAILY PRN Constipation Memantine 10 mg 01/07/21 21:00 02/03/21 09:37 Memantine Hcl 10 Mg Tablet PO 10 mg BID IMCAELA Administration Metoprolol Succinate 25 mg 01/08/21 09:00 02/03/21 09:38 Metoprolol Succinate Er 25 Mg Tab.Er.24h PO 25 mg DAILY MICAELA Administration Protocol Mirtazapine 7.5 mg 01/12/21 21:00 02/02/21 21:19 Mirtazapine 7.5 Mg Tablet PO 7.5 mg BEDTIME MICAELA Administration Propafenone HCl 150 mg 01/07/21 21:00 02/03/21 09:39 Propafenone Hcl 150 Mg Tablet PO 150 mg BID MICAELA Administration Sertraline HCl 25 mg 01/07/21 20:15 02/03/21 09:37 Sertraline Hcl 25 Mg Tablet PO 25 mg DAILY MICAELA Administration Trazodone HCl 50 mg 01/06/21 14:48 01/22/21 23:39 Trazodone Hcl 50 Mg Tablet PO 50 mg BEDTIME PRN Administration Insomnia Trazodone HCl 25 mg 01/15/21 15:00 02/02/21 16:45 Trazodone Hcl 25 Mg Halftab PO 25 mg DAILY@1700 MICAELA Administration Warfarin Sodium 4 mg 02/02/21 18:00 02/02/21 17:56 Warfarin Sodium 4 Mg Tablet PO 4 mg DAILY@1800 MICAELA Administration Allergies Allergies Allergy/AdvReac Type Severity Reaction Status Date / Time No Known Allergies Allergy Verified 01/06/21 14:48 Assessment & Plan Assessment & Plan (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 He was admitted due to the presence of psychotic symptoms without a clear stressor. Historically, the patient has never been psychotic and he did not coleman ve any prior psychiatric history. As of 01/19- pt with much less behavioral disturbances, sleep has significantly improved, underlying neurocognitive disorder, pt not oriented to place, situation, month, year. ambulating with 1:1 due to unsteady gait, which expected to improved as medications are further adjusted. Continue per primary treatment team Plan 2. Going back to Haldol up to 2.5 mg p.o. t.i.d. The patient got agitated as soon as we tried to lower Haldol. 3. CT scan for today that he has refused. 4. His start a mood stabilizer to target mood lability. Since the patient is on Coumadin Depakote is not an option. Most likely, Lamictal would be a good option for him at this point. We will continue the titration of Lamictal up to 25 mg p.o. b.i.d. Greater than 50% of the session was spent on counseling and/or coordination of care Reason for contiued inpatient stay Substantial Risk for: inability to function, rapid decompensation and med/psych decompensation
[2021-02-03] MEDS: Warfarin Sodium 4 MG TABLET PO (16:44)
[2021-02-03] MEDS: traZODone HCL 25 MG HALFTAB PO (16:45)
[2021-02-03] MEDS: hydrOXYzine HCL 50 MG TABLET PO (19:58)
[2021-02-03] MEDS: Mirtazapine 7.5 MG TABLET PO (19:58)
[2021-02-03 21:07] VITALS: BP 134/64; PULSE 75; RESP 16; TEMP 35.8; O2SAT 98
--- NOTE | 2021-02-04 | ECG_ITS ---
Test Reason : RHYTHM CHECK Blood Pressure : / mmHG Vent. Rate : 069 BPM Atrial Rate : 069 BPM P-R Int : 264 ms QRS Dur : 124 ms QT Int : 422 ms P-R-T Axes : 109 -57 014 degrees QTc Int : 452 ms Atrial-paced rhythm with prolonged AV conduction Left anterior fascicular block Left ventricular hypertrophy with QRS widening Abnormal ECG When compared with ECG of 04-FEB-2021 12:05, No significant change was found Referred By: Erica Marcelino Electronically Signed By:ANTHONY SUAREZ
[2021-02-04 07:13] LABS: INTERNATIONAL NORM RATIO 3.1 (0.9-1.1); Prothrombin Time 36.1 SEC (9.9-13.0)
[2021-02-04 08:49] VITALS: BP 97/52; PULSE 74; RESP 16; TEMP 36.6; O2SAT 98
[2021-02-04] MEDS: lamoTRIgine 25 MG TABLET PO ×2 (09:34→20:12)
[2021-02-04] MEDS: Memantine HCl 10 MG TABLET PO ×2 (09:34→20:12)
[2021-02-04] MEDS: Sertraline HCL 25 MG TABLET PO (09:35)
[2021-02-04 11:44] VITALS: BP 113/63; PULSE 79
--- NOTE | 2021-02-04 11:56 | ECG_ITS ---
Test Reason : cp Blood Pressure : / mmHG Vent. Rate : 075 BPM Atrial Rate : 075 BPM P-R Int : 282 ms QRS Dur : 114 ms QT Int : 410 ms P-R-T Axes : -23 -54 012 degrees QTc Int : 457 ms Atrial-paced rhythm with prolonged AV conduction Left anterior fascicular block Moderate voltage criteria for LVH, may be normal variant ( R in aVL , Reymundo product ) Abnormal ECG When compared with ECG of 12-JAN-2021 10:37, Electronic atrial pacemaker has replaced Sinus rhythm Referred By: Osiel Tamez Electronically Signed By:ANTHONY SUAREZ
--- NOTE | 2021-02-04 14:15 | HO.PSYCHPN ---
Subjective Subjective Date of Service: 02/04/21 Reason For Visit: Unspecified Depressive Disorder Subjective Notes: Conditional Voluntary Interim History: The nurses staff reported there were no changes in his mental status. Today in the morning, he was very dysphoric and he reported chest pain. Anyway EKG showed no new changes but he complained of sore throat. We ordered a medical consult. On interview, the patient was dysphoric and sad. Medication Compliance: Yes Side effects from medications: No Attending Groups: No Review of Systems Acute medical concerns: No Medical Review of Systems: unchanged Mental Status Exam Mental Status Exam Patient Appearance: Well Grooomed Patient Orientation: Person Level of Consciousness: Awake Patient Behavior: Passive Mood Description: Constricted Affect Description: Depressed Patient Cognition Impaired: Yes Ability to Follow Directions: Good Speech Pattern: Clear Hallucinations: None Delusions: Not Present Thought Process: Slowed Thinking Thought Content: positive for Poverty of Content and positive for Preoccupation Judgement: Fair Diagnostics Vital Signs (24Hr): Vital Signs - 24 hr 02/03/21 21:07 02/04/21 08:49 02/04/21 11:44 Temperature 96.4 F L 97.9 F Pulse Rate 75 74 79 Respiratory Rate 16 16 Blood Pressure 134/64 97/52 L 113/63 Pulse Oximetry 98 98 Body Mass Index 28.5 Labs Results: 01/14/21 06:25 01/14/21 06:25 Labs: Laboratory Results - last 48 hr 02/03/21 02/04/21 07:45 06:52 PT 36.2 H 36.1 H INR 3.1 H 3.1 H Imaging Radiology Impressions: ITS Impressions Head CT 01/13/21 05:50 IMPRESSION: No acute intracranial pathology. Lumbar Spine X-Ray 01/13/21 14:31 IMPRESSION: Mild to moderate thoracolumbar levoscoliosis and multilevel degenerative changes including L4-5 grade 1 anterolisthesis without overt acute abnormality. Head CT 01/27/21 15:01 IMPRESSION: No acute findings. Mild nonspecific periventricular white matter disease and generalized atrophy. Medications Medications Current Medications Generic Name Dose Route Start Last Admin Trade Name Freq PRN Reason Stop Dose Admin Acetaminophen 650 mg 01/06/21 14:48 01/21/21 01:19 Acetaminophen 325 Mg Tablet PO 650 mg Q6H PRN Administration Headache/Pain Mild Scale (1-3) Al Hydroxide/Mg Hydroxide 30 ml 01/06/21 14:48 01/07/21 22:02 Magnesium Hydrox/Alum Hydrox 30 Ml Oral.Susp PO 30 ml Q6H PRN Administration Heartburn/Nausea Furosemide 20 mg 01/08/21 09:00 02/03/21 09:38 Furosemide 20 Mg Tablet PO 20 mg Q48H MICAELA Administration Protocol Haloperidol 5 mg 01/27/21 14:56 01/30/21 14:59 Haloperidol 5 Mg Tablet PO 5 mg TID PRN Administration Psychosis Haloperidol 2.5 mg 01/27/21 21:00 02/04/21 11:43 Haloperidol 0.5 Mg Tablet PO Not Given TID MICAELA Hydroxyzine HCl 50 mg 01/23/21 21:00 02/03/21 19:58 Hydroxyzine Hcl 50 Mg Tablet PO 50 mg BEDTIME MICAELA Administration Lamotrigine 25 mg 02/02/21 21:00 02/04/21 09:34 Lamotrigine 25 Mg Tablet PO 25 mg BID MICAELA Administration Magnesium Hydroxide 30 ml 01/06/21 14:48 Milk Of Magnesia 30 Ml Oral.Susp PO DAILY PRN Constipation Memantine 10 mg 01/07/21 21:00 02/04/21 09:34 Memantine Hcl 10 Mg Tablet PO 10 mg BID MICAELA Administration Metoprolol Succinate 25 mg 01/08/21 09:00 02/04/21 11:44 Metoprolol Succinate Er 25 Mg Tab.Er.24h PO Not Given DAILY MICAELA Protocol Mirtazapine 7.5 mg 01/12/21 21:00 02/03/21 19:58 Mirtazapine 7.5 Mg Tablet PO 7.5 mg BEDTIME MICAELA Administration Propafenone HCl 150 mg 01/07/21 21:00 02/04/21 09:34 Propafenone Hcl 150 Mg Tablet PO 150 mg BID MICAELA Administration Sertraline HCl 25 mg 01/07/21 20:15 02/04/21 09:35 Sertraline Hcl 25 Mg Tablet PO 25 mg DAILY MICAELA Administration Trazodone HCl 50 mg 01/06/21 14:48 01/22/21 23:39 Trazodone Hcl 50 Mg Tablet PO 50 mg BEDTIME PRN Administration Insomnia Trazodone HCl 25 mg 01/15/21 15:00 02/03/21 16:45 Trazodone Hcl 25 Mg Halftab PO 25 mg DAILY@1700 MICAELA Administration Warfarin Sodium 4 mg 02/02/21 18:00 02/03/21 16:44 Warfarin Sodium 4 Mg Tablet PO 4 mg DAILY@1800 MICAELA Administration Allergies Allergies Allergy/AdvReac Type Severity Reaction Status Date / Time No Known Allergies Allergy Verified 01/06/21 14:48 Assessment & Plan Assessment & Plan (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 He was admitted due to the presence of psychotic symptoms without a clear stressor. Historically, the patient has never been psychotic and he did not have any prior psychiatric history. As of 01/19- pt with much less behavioral disturbances, sleep has significantly improved, underlying neurocognitive disorder, pt not oriented to place, situation, month, year. ambulating with 1:1 due to unsteady gait, which expected to improved as medications are further adjusted. Continue per primary treatment team Plan 1. Increase Zoloft 2. Going back to Haldol up to 2.5 mg p.o. t.i.d. The patient got agitated as soon as we tried to lower Haldol. 3. CT scan for today that he has refused. 4. His start a mood stabilizer to target mood lability. Since the patient is on Coumadin Depakote is not an option. Most likely, Lamictal would be a good option for him at this point. We will continue the titration of Lamictal up to 25 mg p.o. b.i.d. Greater than 50% of the session was spent on counseling and/or coordination of care Reason for contiued inpatient stay Substantial Risk for: harm to self, inability to function, rapid decompensation and med/psych decompensation
--- NOTE | 2021-02-04 14:32 | PM.EVENT ---
Event Note Date of Service: 02/04/21 Event Note: This is a 80-year-old male with history of atrial fibrillation on Eliquis, sick sinus syndrome status post pacemaker placement, h/o diabetes, dementia admitted to inpatient psychiatric unit due to agitation aggression. The hospitalists were consulted today after an episode of chest pain. The patient states that he had a short episode of what he described stabbing chest pain on the left side of his. This Was not associated with any palpitations or shortness of breath. The pain resolved after some burning pain in his throat radiating down into his chest. The patient was offered Mylanta but the patient declined. At this time patient his observed sitting in a chair appears comfortable. He denies any associated chest pain at this time he denies any palpitations or shortness of breath. He denies any previous history of chest pain. PE Appears comfortable and in no acute distress No reproducible chest wall pain Cardiology normal S1-S2 Lungs clear to auscultation bilaterally no wheezes rhonchi or rales GI abdomen soft non-tender non-distended A/P Chest pain Atypical in nature, although given dementia seems to be unreliable historian Initial EKG with poor baseline, will repeat and obtain troponin Already fully anticoagulated with Coumadin
--- NOTE | 2021-02-04 16:56 | PC.NURSE ---
Patient reported burning throat that went into his chest this morning. He then reported some chest pain. Dr. Tamez was made aware, and he ordered an EKG. Patient was offered maalox but he refused. EKG was performed, see report. Hospitalist consult was ordered and he was seen in the afternoon by the hospitalist. Hospitalist reordered EKG and ordered Troponin labs to be drawn. Patient is now seen in the milieu relaxing and watching tv.
[2021-02-04] MEDS: traZODone HCL 25 MG HALFTAB PO (17:14)
[2021-02-04] MEDS: Warfarin Sodium 4 MG TABLET PO (17:14)
[2021-02-04 18:00] VITALS: BP 101/61; PULSE 74; RESP 18; TEMP 36.5; O2SAT 98
[2021-02-04 18:49] LABS: Troponin-I High Sensitivity 6.8 ng/L (<3.5-35.0)
[2021-02-04] MEDS: HaloperidoL 0.5 MG TABLET 2.5 MG PO (20:11)
[2021-02-04] MEDS: Mirtazapine 7.5 MG TABLET PO (20:12)
[2021-02-04] MEDS: hydrOXYzine HCL 50 MG TABLET PO (20:12)
[2021-02-05 08:29] VITALS: BP 105/62; PULSE 90; RESP 18; TEMP 36.7; O2SAT 99
[2021-02-05] MEDS: Acetaminophen 325 MG TABLET 650 MG PO (08:31)
[2021-02-05 08:32] VITALS: BP 105/62; PULSE 90
[2021-02-05] MEDS: lamoTRIgine 25 MG TABLET PO (08:32)
[2021-02-05] MEDS: Metoprolol Succinate ER 25 MG TAB.ER.24H PO (08:32)
[2021-02-05] MEDS: Memantine HCl 10 MG TABLET PO (08:32)
[2021-02-05] MEDS: Furosemide 20 MG TABLET PO (08:33)
[2021-02-05] MEDS: Sertraline HCL 50 MG TABLET PO (08:33)
[2021-02-05] MEDS: HaloperidoL 0.5 MG TABLET 2.5 MG PO (08:34)
[2021-02-05 08:44] LABS: INTERNATIONAL NORM RATIO 3.2 (0.9-1.1)
--- NOTE | 2021-02-05 09:59 | P.DS_ITS ---
DS: Providers Provider Date of Service: 02/05/21 Date of admission: 01/06/21 14:03 Date of discharge: 02/05/21 Primary care physician: Jeevan Physician Consults: 01/06/21 15:04 Consult to Hospitalist Routine Consulting Provider: Hospitalist Reason For Exam: afib on warfarin needs adm physical 02/04/21 10:58 Consult to Hospitalist Routine Consulting Provider: Hospitalist Reason For Exam: chest pain, sore throat, EKG without changes 02/04/21 12:21 Consult to Hospitalist Routine Consulting Provider: Hospitalist Reason For Exam: Chest pain, EKG done results abnormal no change Attending physician on discharge: Osiel Tamez DS: Diagnosis Discharge Diagnosis (1) 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: Status: Acute (2) Dementia: Status: Acute (3) Afib: Status: Acute DS: Medications Discharge Medications Home Medications: Home Medications Medication Instructions Recorded Confirmed Seroquel 25 mg PO BID 01/07/21 01/07/21 furosemide 20 mg tablet (Lasix) 20 mg PO Q OTHER DAY 01/07/21 01/07/21 memantine 10 mg PO BID 01/07/21 01/07/21 metoprolol succinate 25 mg 25 mg PO DAILY 01/07/21 01/07/21 tablet,extended release 24 hr mirtazapine 15 mg SUBLINGUAL BEDTIME 01/07/21 01/07/21 propafenone 150 mg tablet 150 mg PO BID 01/07/21 01/07/21 sertraline 25 mg tablet 25 mg PO DAILY 01/07/21 01/07/21 warfarin 5 mg tablet 7.5 mg PO QAM 01/07/21 01/07/21 Mental Status Exam Mental Status Exam Patient Appearance: Well Grooomed Patient Orientation: Person Level of Consciousness: Awake Patient Behavior: Cooperative and Timid Mood Description: Depressed Affect Description: Constricted Patient Cognition Impaired: Yes Ability to Follow Directions: Fair Speech Pattern: Clear Hallucinations: None Delusions: Not Present Thought Process: Linear and Slowed Thinking Thought Content: positive for Circumstantial and positive for Poverty of Content Depressive Symptoms: Loss of Energy Judgement: Poor Data Data Completed and Pending Completed studies during hospitalization [Text1]: 01/30/21 01/31/21 02/01/21 07:00 06:28 06:45 PT 30.5 H 32.8 H 35.1 H INR 2.6 H 2.8 H 3.0 H Troponin I High Sens 02/02/21 02/03/21 02/04/21 07:39 07:45 06:52 PT 38.2 H 36.2 H 36.1 H INR 3.3 H 3.1 H 3.1 H Troponin I High Sens 02/04/21 02/05/21 18:16 08:28 PT 37.0 H INR 3.2 H Troponin I High Sens 6.8 Imaging Diagnostic Imaging Impressions Head CT 01/13/21 05:50 IMPRESSION: No acute intracranial pathology. Lumbar Spine X-Ray 01/13/21 14:31 IMPRESSION: Mild to moderate thoracolumbar levoscoliosis and multilevel degenerative changes including L4-5 grade 1 anterolisthesis without overt acute abnormality. Head CT 01/27/21 15:01 IMPRESSION: No acute findings. Mild nonspecific periventricular white matter disease and generalized atrophy. DS: Summary Hospital Course Hospital Course: The patient was initially admitted for psychotic symptoms in the context of dementia. Please see admission note for more details. Since the patient has psychotic symptoms and he was extremely agitated, we started olanzapine titrated up to 10 mg p.o. q.h.s. with very poor improvement. Eventually, he was changed to haloperidol titrated up to 5 mg p.o. t.i.d. with fair improvement of his psychotic symptoms, there were no evidence of hallucinations or delusions and he was not responding to internal stimuli but he was over-sedated. After few days of psychiatric stabilization we started tapering need of haloperidol up to 2.5 mg p.o. t.i.d. with fair improvement of his psychotic symptoms. Since he was stable, we decided to go lower but the patient decompensated in less than 24 hours and we needed to put back haloperidol 2.5 mg p.o. t.i.d. with a total of 7.5 mg a day. His psychotic symptoms resolved in less than 48 hours but he looked dysphoric. We discussed the case with his family and they agreed to start a mood stabilizer. Since the patient was on Coumadin, Depakote was not an option so we went to Lamictal titrated up slowly up to 25 mg p.o. b.i.d. and we increased Zoloft to 50 mg p.o. q.a.m. since he was very dysphoric. Disposition and discharge plan was discussed with the family. The patient is severely demented with a [place] test that was very low. He was cleared the patient needs residential facility treatment. Since the patient was stable discharge plan was set for SNF. Time spent discussing smoking cessation with patient: 3 to 10 minutes Status at Discharge Cognitive/behavioral status at discharge: At baseline Functional status at discharge: uses cane/walker Overall status at discharge: patient is back to baseline Time Spent with Patient Time attestation: Total time spent providing and/or coordinating discharge services: Time spent: Less than 30 minutes Discharge Plan Discharge Patient Disposition: Xfer SNF Discharge Diagnosis: Psychotic disorder due to medical condition. Dementia. Referrals: Physician,Unknown [Primary Care Provider] - 1 Week Discharge Medications: New acetaminophen 325 mg Tablet 650 mg PO Q6H PRN (Reason: Headache/Pain Mild Scale (1-3)) Qty: 30 RF: 0 trazodone 50 mg Tablet 50 mg PO BEDTIME PRN (Reason: Insomnia) 30 Days RF: 0 hydroxyzine HCl 50 mg Tablet 50 mg PO BEDTIME 30 Days Qty: 30 RF: 0 warfarin [Jantoven] 4 mg Tablet 4 mg PO DAILY@1800 30 Days RF: 0 lamotrigine 25 mg Tablet 25 mg PO BID 30 Days Qty: 60 RF: 0 warfarin [Jantoven] 2 mg Tablet 2 mg PO DAILY@1800 30 Days RF: 0 sertraline 50 mg Tablet 50 mg PO DAILY 30 Days Qty: 30 RF: 0 mirtazapine 7.5 mg Tablet 7.5 mg PO BEDTIME 30 Days Qty: 30 RF: 0 MAG-AL 200-200 mg/5 mL Suspension 30 ml PO Q6H PRN (Reason: Heartburn/Nausea) 30 Days RF: 0 haloperidol 5 mg tablet 2.5 mg PO TID 30 Days Qty: 45 RF: 0 Continued propafenone 150 mg Tablet 150 mg PO BID RF: 0 furosemide [Lasix] 20 mg Tablet 20 mg PO Q OTHER DAY RF: 0 memantine tablet 10 mg PO BID RF: 0 metoprolol succinate 25 mg Tablet Extended Release 24 Hr 25 mg PO DAILY RF: 0 Discontinued warfarin 5 mg Tablet 7.5 mg PO QAM RF: 0 sertraline 25 mg Tablet 25 mg PO DAILY RF: 0 Seroquel 25 mg PO BID RF: 0 mirtazapine 15 mg sublingual BEDTIME RF: 0 Discharge Orders: Discharge Order (Routine); Ordered 02/05/21 Ordered By: Osiel Tamez Diet: advance to usual diet Activity on Discharge: As tolerated Stand Alone Forms: Patient Portal Discharge page Care Plan Goals: Care planning goals achieved in the facility Health Concerns: Continue treatment with primary care physician Plan of Treatment: Continue medication management Assessment: The patient is a 80-year-old male with a history of dementia with a recent onset of psychotic symptoms that made him very violent, weight visual hallucinations, paranoia and disorganized behavior. The patient was admitted to this facility for psychiatric stabilization he has responded very well to help bring on. His depression worsened a little so Zoloft was increased up to 50 mg p.o. daily and a mood stabilizer Lamictal was started. At this moment no safety concerns discharge planning was arranged.
== END 2021-02-05 13:00 | disposition skilled nursing facility (03) | DRG 884 ==
PROVIDERS: Internal Medicine; Physician Assistant Medical; Student in an Organized Health Care Education/Training Program; Admitting Provider Psychiatry & Neurology Psychiatry; Visit Provider Psychiatry & Neurology Psychiatry
DX: F03.91 Unspecified dementia, unspecified severity, with behavioral disturbance (principal); I48.91 Unspecified atrial fibrillation; E11.9 Type 2 diabetes mellitus without complications; Z95.0 Presence of cardiac pacemaker; I49.5 Sick sinus syndrome; Z79.01 Long term (current) use of anticoagulants; Z79.899 Other long term (current) drug therapy
CPT/HCPCS: 36415; 70450; 72100; 80048; 80061; 81001; 81003; 82607; 82746; 83036; 84443; 84484; 85025; 85610; 93005; 99232